=== PATIENT | male | born 1955 | race Caucasian/White ===

== ENCOUNTER 2018-06-06 14:17 | Inpatient (IN) | payer MEDICARE, OTHER ==
[~2018-06-06] VITALS: Ht 182.9 cm; Wt 108.9 kg
[~2018-06-06 14:17] MED LIST: Amlodipine PO; WARFARIN SODIUM2 MG PO; WARFARIN SODIUM3 MG PO
--- OUTSIDE RECORDS SUMMARY | 2018-06-06 14:20 | XMS REPORT | Clinical Summary ---
Author Author [facility] Organization [facility] Address Unknown Phone Unavailable Care Team Providers Care Review Consultant Name Role Phone System, Provider Not In MD PCP Unavailable Allergies No Known Allergies Current Medications Prescription Sig. Disp. Refills Start End Date Status Date warfarin (COUMADIN) 4 MG 03/15/20 Active tablet 18 zolpidem (AMBIEN) 10 mg TK 1 T PO QHS PRN 2 03/13/20 Active tablet 18 pravastatin (PRAVACHOL) TK 1 T PO QD 2 03/01/20 Active 40 MG tablet 18 BYSTOLIC 5 mg tablet TK 1 T PO QD 5 03/13/20 Active 18 ipratropium-albuterol USE 1 VIAL VIA NEBULIZER 0 03/01/20 Active (DUO-NEB) 0.5-2.5 mg/mL Q 6 H FOR SOB OR WHEEZING 18 nebulizer PROAIR HFA 90 INHALE 1 PUFF PO Q 4 H 0 02/10/20 Active mcg/actuation inhaler PRN WHEEZING/ SOB 18 acetaminophen-codeine TK 1 T PO Q 4-6 H PRN 0 03/21/20 Active (TYLENOL WITH CODEINE #3) SEVERE PAIN 18 300-30 mg per tablet ibuprofen (ADVIL,MOTRIN) TK 1 T PO QID 0 03/21/20 Active 600 MG tablet 18 traMADol (ULTRAM) 50 mg Take 1 tablet (50 mg 12 tablet 0 03/25/20 03/30/20 tablet total) by mouth every 6 18 18 (six) hours as needed for moderate pain for up to 5 days. clindamycin (CLEOCIN) 300 Take 1 capsule (300 mg 30 capsule 0 03/25/20 04/04/20 MG capsule total) by mouth 3 (three) 18 18 times a day for 10 days. Active Problems Not on file Encounters Date Type Specialty Care Team Description 03/25/2018 Emergency Emergency Medicine Yolanda Sauer, Closed fracture of MD proximal end of left Kyle Patel MD tibia, unspecified fracture morphology, initial encounter (Primary Dx); Hematoma after 06/05/2017 Social History Tobacco Use Types Packs/Day Years Used Date Current Every Day Smoker Smokeless Tobacco: Current User Alcohol Use Drinks/Week oz/Week Comments Yes Sex Assigned at Date Recorded Not on file Last Filed Vital Signs Vital Sign Reading Time Taken Blood Pressure 128/62 03/25/2018 5:10 PM CDT Pulse 77 03/25/2018 5:10 PM CDT Temperature 37.2 C (99 F) 03/25/2018 12:38 PM CDT Respiratory Rate 18 03/25/2018 5:10 PM CDT Oxygen Saturation 95% 03/25/2018 5:10 PM CDT Inhaled Oxygen - - Concentration Weight 107 kg (235 lb) 03/25/2018 12:38 PM CDT Height 182.9 cm (6') 03/25/2018 12:38 PM CDT Body Mass Index 31.87 03/25/2018 12:38 PM CDT Plan of Treatment Health Maintenance Due Date Last Done Comments COLON CANCER SCREENING 2003 SHINGRIX VACCINE (#1) 2003 ZOSTER VACCINE 2013 PNEUMOCOCCAL 2018 POLYSACCHARIDE VACCINE AGE 65 AND OVER PNEUMOCOCCAL-13 2018 INFLUENZA VACCINE 03/15/2018 Procedures Procedure Name Priority Date/Time Associated Diagnosis Comments XR TIBIA FIBULA 2 VW LEFT STAT 03/25/2018 Results for this 2:45 PM CDT procedure are in the results section. BLOOD CULTURE, AEROBIC & Routine 03/25/2018 Results for this ANAEROBIC 2:27 PM CDT procedure are in the results section. SMEAR REVIEW STAT 03/25/2018 Results for this 2:18 PM CDT procedure are in the results section. ZZESTIMATED GFR STAT 03/25/2018 Results for this 2:18 PM CDT procedure are in the results section. B NATRIURETIC PEPTIDE STAT 03/25/2018 Results for this 2:18 PM CDT procedure are in the results section. TROPONIN STAT 03/25/2018 Results for this 2:18 PM CDT procedure are in the results section. LIPASE LEVEL STAT 03/25/2018 Results for this 2:18 PM CDT procedure are in the results section. LACTIC ACID LEVEL, SEPSIS STAT 03/25/2018 Results for this - NOW AND REPEAT 2X EVERY 2:18 PM CDT procedure are in the 3 HOURS results section. HEPATIC FUNCTION PANEL STAT 03/25/2018 Results for this 2:18 PM CDT procedure are in the results section. BASIC METABOLIC PANEL STAT 03/25/2018 Results for this 2:18 PM CDT procedure are in the results section. HC COMPLETE BLD COUNT STAT 03/25/2018 Results for this W/AUTO DIFF 2:18 PM CDT procedure are in the results section. BLOOD CULTURE, AEROBIC & Routine 03/25/2018 Results for this ANAEROBIC 2:18 PM CDT procedure are in the results section. MS PUNCTURE DRAINAGE OF Routine 03/25/2018 Results for this LESION 1:41 PM CDT procedure are in the results section. MS DRAIN LOWER LEG DEEP Routine 03/25/2018 Results for this ABSC/HEMATOMA 1:41 PM CDT procedure are in the results section. MS DRAINAGE OF Routine 03/25/2018 Results for this HEMATOMA/FLUID 1:41 PM CDT procedure are in the results section. after 06/05/2017 Results * XR Tibia Fibula 2 Vw Left (03/25/2018 2:45 PM) Narrative Performed At EXAMINATION:XR TIBIA FIBULA 2 VW LEFT [facility] CLINICAL HISTORY:leg pain COMPARISON:None. IMPRESSION: 1.Evaluation of the lower extremity demonstrates a minimally displaced and obliquely oriented fracture involving the anterior and lateral proximal tibia and corresponding to superficial soft tissue swelling likely related to a hematoma. There is hardware associated with a total knee arthroplasty. The fracture line extends from the anterior and inferior aspect of the tibial component and approximately 9 to 10 cm distally to the cortex. [facility]-[id number] Procedure Note Interface, Radiology Results Incoming - 03/25/2018 2:57 PM CDT EXAMINATION: XR TIBIA FIBULA 2 VW LEFT CLINICAL HISTORY: leg pain COMPARISON: None. IMPRESSION: 1. Evaluation of the lower extremity demonstrates a minimally displaced and obliquely oriented fracture involving the anterior and lateral proximal tibia and corresponding to superficial soft tissue swelling likely related to a hematoma. There is hardware associated with a total knee arthroplasty. The fracture line extends from the anterior and inferior aspect of the tibial component and approximately 9 to 10 cm distally to the cortex. [facility]-[id number] Performing Organization Address City/State/Zipcode Phone Number [facility] [address] [place] [address] * Blood culture, aerobic & anaerobic (03/25/2018 2:27 PM) Only the most recent of 2 results within the time period is included. Blood culture isolate No growth after 5 days of [facility] DEPARTMENT OF incubation. PATHOLOGY AND Comment: GENOMIC MEDICINE Specimen Information Specimen Source: Blood Specimen Site: l. hand Specimen Blood Performing Organization Address City/State/Zipcode Phone Number [facility] DEPARTMENT OF [address] [place] [address] PATHOLOGY AND GENOMIC MEDICINE * Smear review (03/25/2018 2:18 PM) Platelet slide review Simone adequate [facility] DEPARTMENT OF PATHOLOGY AND GENOMIC MEDICINE Anisocytosis 1+ [facility] DEPARTMENT OF PATHOLOGY AND GENOMIC MEDICINE Ovalocytes 1+ [facility] DEPARTMENT OF PATHOLOGY AND GENOMIC MEDICINE Enlarged platelets 1+ [facility] DEPARTMENT OF PATHOLOGY AND GENOMIC MEDICINE Performing Organization Address City/[facility]/Zipcode Phone Number [facility] DEPARTMENT OF [address] [facility] [place] [address] PATHOLOGY AND GENOMIC MEDICINE * Lactic acid level, SEPSIS - Now and repeat 2x every 3 hours (03/25/2018 2:18 PM) Lactic acid 1.5 0.5 - 2.2 mmol/L [facility] DEPARTMENT OF PATHOLOGY AND GENOMIC MEDICINE Specimen Blood Performing Organization Address City/[facility] Phone Number [facility] DEPARTMENT OF [address] [facility] [place] [address] PATHOLOGY AND GENOMIC MEDICINE * Estimated GFR (03/25/2018 2:18 PM) GFR Non Af Amer 75 mL/min/1.73 m2 [facility] DEPARTMENT OF PATHOLOGY AND GENOMIC MEDICINE GFR Af Amer >90 mL/min/1.73 m2 [facility] DEPARTMENT OF Comment: PATHOLOGY AND Chronic kidney disease: <60 GENOMIC MEDICINE mL/min/1.73m2 Kidney failure: <15 mL/min/1.73m2 The estimated GFR is calculated from the IDMS-traceable Modification of Diet in Renal Disease Equation. The accuracy of the calculation is poor when the creatinine is normal. Calculated values >90 mL/min/1.73m2 are not reported. This equation has not been validated in children (<18 years), women, the elderly (>70 years), or ethnic groups other than Caucasians and Americans. Specimen Plasma specimen Performing Organization Address City/[facility]/Zipcode Phone Number [facility] DEPARTMENT OF [address] [facility] [place] [address] PATHOLOGY AND GENOMIC MEDICINE * Troponin (03/25/2018 2:18 PM) Troponin <0.30 0.00 - 0.30 ng/mL [facility] DEPARTMENT OF Comment: PATHOLOGY AND 0.11 - 1.49 GENOMIC MEDICINE ng/mlMay indicate increased risk of acute coronary syndrome. >=1.5 ng/ml Consistent with acute myocardial infarction. The diagnostic value of a single normal or non-diagnostic result is questionable.Serial samples at 2-6 hour intervals are required to rule out acute myocardial injury. Specimen Plasma specimen Performing Organization Address City/State/Zipcode Phone Number [facility] [address] [place] [address] PATHOLOGY AND GENOMIC MEDICINE * CBC with platelet and differential (03/25/2018 2:18 PM) WBC 6.2 4.2 - 11.0 k/uL [facility] DEPARTMENT OF PATHOLOGY AND GENOMIC MEDICINE RBC 4.98 4.04 - 5.86 m/uL [facility] DEPARTMENT OF PATHOLOGY AND GENOMIC MEDICINE HGB 15.5 13.0 - 17.3 g/dL [facility] DEPARTMENT OF PATHOLOGY AND GENOMIC MEDICINE HCT 47.4 (H) 34.0 - 45.0 % [facility] DEPARTMENT OF PATHOLOGY AND GENOMIC MEDICINE MCV 95.2 80.0 - 98.0 fL [facility] DEPARTMENT OF PATHOLOGY AND GENOMIC MEDICINE MCH 31.1 27.0 - 34.0 pg [facility] DEPARTMENT OF PATHOLOGY AND GENOMIC MEDICINE MCHC 32.7 31.5 - 36.5 g/dL [facility] DEPARTMENT OF PATHOLOGY AND GENOMIC MEDICINE RDW - SD 52.6 (H) 37.0 - 51.0 fL [facility] DEPARTMENT OF PATHOLOGY AND GENOMIC MEDICINE MPV 10.3 7.4 - 10.4 fL [facility] DEPARTMENT OF PATHOLOGY AND GENOMIC MEDICINE Platelet count 182 150 - 400 k/uL [facility] DEPARTMENT OF PATHOLOGY AND GENOMIC MEDICINE Nucleated RBC 0.00 /100 WBC [facility] DEPARTMENT OF PATHOLOGY AND GENOMIC MEDICINE Neutrophils 71.3 (H) 36.0 - 66.0 % [facility] DEPARTMENT OF PATHOLOGY AND GENOMIC MEDICINE Lymphocytes 14.6 (L) 24.0 - 44.0 % [facility] DEPARTMENT OF PATHOLOGY AND GENOMIC MEDICINE Monocytes 8.1 (H) 0.0 - 6.0 % [facility] DEPARTMENT OF PATHOLOGY AND GENOMIC MEDICINE Eosinophils 3.9 0.0 - 6.0 % [facility] DEPARTMENT OF PATHOLOGY AND GENOMIC MEDICINE Basophils 1.3 (H) 0.0 - 1.2 % [facility] DEPARTMENT OF PATHOLOGY AND GENOMIC MEDICINE Immature granulocytes 0.8 0.0 - 1.0 % [facility] DEPARTMENT OF PATHOLOGY AND GENOMIC MEDICINE Specimen Blood Performing Organization Address City/[facility] [place] [address] PATHOLOGY AND GENOMIC MEDICINE * B natriuretic peptide (03/25/2018 2:18 PM) BNP 77 0 - 100 pg/mL [facility] DEPARTMENT OF PATHOLOGY AND GENOMIC MEDICINE Specimen Blood Performing Organization Address City/[facility] [place] [address] PATHOLOGY AND GENOMIC MEDICINE * Lipase level (03/25/2018 2:18 PM) Lipase 49 13 - 60 U/L [facility] DEPARTMENT OF PATHOLOGY AND GENOMIC MEDICINE Specimen Plasma specimen Performing Organization Address [facility] [place] [address] PATHOLOGY AND GENOMIC MEDICINE * Hepatic function panel (03/25/2018 2:18 PM) Albumin 3.3 (L) 3.5 - 5.0 g/dL [facility] DEPARTMENT OF PATHOLOGY AND GENOMIC MEDICINE Total bilirubin 1.0 0.2 - 1.2 mg/dL [facility] DEPARTMENT OF PATHOLOGY AND GENOMIC MEDICINE Bilirubin direct 0.2 0.0 - 0.4 mg/dL [facility] DEPARTMENT OF PATHOLOGY AND GENOMIC MEDICINE Alkaline phosphatase 91 0 - 129 U/L [facility] DEPARTMENT OF PATHOLOGY AND GENOMIC MEDICINE Protein 6.3 6.3 - 8.3 g/dL [facility] DEPARTMENT OF PATHOLOGY AND GENOMIC MEDICINE ALT 16 5 - 50 U/L [facility] DEPARTMENT OF PATHOLOGY AND GENOMIC MEDICINE AST 25 10 - 50 U/L [facility] DEPARTMENT OF PATHOLOGY AND GENOMIC MEDICINE Specimen Plasma specimen Performing Organization Address [facility] [place]erc[place] [address] PATHOLOGY AND GENOMIC MEDICINE * Basic metabolic panel (03/25/2018 2:18 PM) Sodium 141 135 - 150 mEq/L [facility] DEPARTMENT OF PATHOLOGY AND GENOMIC MEDICINE Potassium 4.3 3.5 - 5.0 mEq/L [facility] DEPARTMENT OF PATHOLOGY AND GENOMIC MEDICINE Chloride 104 98 - 112 mEq/L [facility] DEPARTMENT OF PATHOLOGY AND GENOMIC MEDICINE CO2 27 24 - 31 mmol/L [facility] DEPARTMENT OF PATHOLOGY AND GENOMIC MEDICINE Anion gap 10@ANIO 7 - 15 mEq/L [facility] DEPARTMENT OF PATHOLOGY AND GENOMIC MEDICINE BUN 10 7 - 18 mg/dL [facility] DEPARTMENT OF PATHOLOGY AND GENOMIC MEDICINE Creatinine 1.00 0.70 - 1.20 mg/dL [facility] DEPARTMENT OF PATHOLOGY AND GENOMIC MEDICINE Glucose 112 (H) 65 - 100 mg/dL [facility] DEPARTMENT OF PATHOLOGY AND GENOMIC MEDICINE Calcium 8.6 (L) 8.8 - 10.2 mg/dL [facility] DEPARTMENT OF PATHOLOGY AND GENOMIC MEDICINE Specimen Plasma specimen Performing Organization Address City/State/Zipcode Phone Number [place] [address] [place] [address] PATHOLOGY AND GENOMIC MEDICINE * INCISION AND DRAINAGE (03/25/2018 1:41 PM) Narrative Performed At Yolanda Sauer MD 03/26/20189:54 PM I&D/Aspiration/Amputation Performed by: YOLANDA SAUER Authorized by: YOLANDA SAUER Consent: Consent obtained:Verbal Consent given by:Patient Risks discussed:Bleeding, incomplete drainage, pain and damage to other organs Alternatives discussed:No treatment and delayed treatment Location: Type:Hematoma Location:Lower extremity Lower extremity location:L leg Pre-procedure details: Skin preparation:Betadine Anesthesia (see MAR for exact dosages): Anesthesia method:Local infiltration Local anesthetic:Lidocaine 1% w/o epi Procedure details: Complexity:Simple Needle aspiration: Yes Specimen Obtained: No Needle size:18 G Incision types:Single straight Scalpel blade:10 Drainage:Bloody Drainage amount:Scant Wound treatment:Wound left open Packing materials:1/2 in gauze Post-procedure details: Patient tolerance of procedure:Tolerated well, no immediate complications after 06/05/2017 Insurance Payer Benefit Subscriber ID Type Phone Address Plan / Group AETNA AETNA PPO xxxxxxxxxx PPO OPEN CHOICE MEDICARE MEDICARE xxxxxxxxxxx Medicare [place], [place] [address]
[2018-06-06] MEDS ORDERED: SODIUM CHLORIDE 0.9% 1000ML 1,000 ML IV STA (14:51)
[2018-06-06 15:23] LABS: BASOPHILS # (AUTO) 0.1 (0.0-0.1); EOSINOPHILS # (AUTO) 0.3 (0.0-0.4); EOSINOPHILS % 5.6 % (0.0-6.0); HEMATOCRIT 49.9 % (38.2-49.6); HEMOGLOBIN 16.5 g/dL (14.0-18.0); LYMPHOCYTES % 19.7 % (18.0-39.1); MEAN CORPUSCULAR HEMOGLOBIN 30.6 pg (28-32); MEAN CORPUSCULAR HGB CONC 33.1 g/dL (31-35); MEAN CORPUSCULAR VOLUME 92.6 fL (81-99); MONOCYTES # (AUTO) 0.4 (0.2-0.8); MONOCYTES % 8.4 % (4.4-11.3); NEUTROPHILS # (AUTO) 3.2 (2.1-6.9); NEUTROPHILS % 65.1 % (38.7-80.0); PLATELET COUNT 177 x10e3/uL (140-360); RED BLOOD COUNT 5.39 x10e6/uL (4.3-5.7); RED CELL DISTRIBUTION WIDTH 14.6 % (11.7-14.4)
[2018-06-06 15:29] LABS: INR 0.99
[2018-06-06 15:30] LABS: PARTIAL THROMBOPLASTIN TIME 27.5 seconds (23.8-35.5)
[2018-06-06 15:35] LABS: BILIRUBIN,URINE NEGATIVE (NEGATIVE); CLARITY,URINE SL CLOUDY (CLEAR); COLOR,URINE YELLOW (YELLOW); KETONES,URINE NEGATIVE (NEGATIVE); LEUKOCYTE ESTERASE ,URINE NEGATIVE (NEGATIVE); NITRITE,URINE NEGATIVE (NEGATIVE); PROTEIN,URINE DIPSTICK TRACE (NEGATIVE); URINE UROBILINOGEN 0.2 mg/dL (0.2 - 1)
[2018-06-06 15:42] LABS: ALANINE AMINOTRANSFERASE 17 IU/L (0-55); ALBUMIN 3.4 g/dL (3.5-5.0); ALBUMIN/GLOBULIN RATIO 1.2 (0.8-2.0); ALKALINE PHOSPHATASE 109 IU/L (40-150); ANION GAP 13.4 mmol/L (8-16); BLOOD UREA NITROGEN 9 mg/dL (7-26); BUN/CREATININE RATIO 7 (6-25); CALCIUM 8.4 mg/dL (8.4-10.2); CARBON DIOXIDE 27 mmol/L (22-29); CHLORIDE 100 mmol/L (98-107); CREATINE KINASE 43 IU/L (30-200); CREATININE, SERUM 1.25 mg/dL (0.72-1.25); EST GLOMERULAR FILTRATION RATE 58 ML/MIN (60-); GLUCOSE 139 mg/dL (74-118); LIPASE 14 U/L (8-78); POTASSIUM 3.4 mmol/L (3.5-5.1); SODIUM 137 mmol/L (136-145)
[2018-06-06 15:49] LABS: BACTERIA,URINE FEW /HPF; RBC,URINE >50 /HPF (0-5)
--- NOTE | 2018-06-06 16:00 | Diagnostic Imaging Report ---
EXAMINATION: CT of the abdomen and pelvis without contrast. TECHNIQUE: Helical CT images of the abdomen and pelvis were performed from the lung bases to the lesser trochanters. No intravenous contrast was given per renal stone protocol. Coronal and sagittal reformatted images were obtained.Dose modulation, iterative reconstruction, and/or weight based adjustment of the mA/kV was utilized to reduce the radiation dose to as low as reasonably achievable. COMPARISON: None. CLINICAL HISTORY:Abdominal pain, hematuria DISCUSSION: ABSENCE OF INTRAVENOUS CONTRAST DECREASES SENSITIVITY FOR DETECTION OF FOCAL LESIONS AND VASCULAR PATHOLOGY. ABDOMEN/PELVIS: LOWER THORAX: Unremarkable. HEPATOBILIARY:No focal hepatic lesions. No biliary ductal dilation. The gallbladder is normal. SPLEEN: No splenomegaly. PANCREAS: No focal masses or ductal dilatation. ADRENALS: No adrenal nodules. KIDNEYS/URETERS: No hydronephrosis, stones, or solid mass lesions. PELVIC ORGANS/BLADDER: The bladder is normal. PERITONEUM/RETROPERITONEUM: No free air or fluid. LYMPH NODES: No intra-abdominal,retroperitoneal, pelvic or inguinal lymphadenopathy. VESSELS: Limited evaluation GI TRACT: No distention or wall thickening. BONES AND SOFT TISSUES: No bony destructive lesions. No soft tissue abnormalities. IMPRESSION: No renal calculi. No CT finding to explain patient's hematuria. Signed by: Dr. Kali Cole M.D. on 06/06/2018 3:56 PM
[2018-06-06] MEDS: ONDANSETRON HCL INJ 2 MG/ML VIAL IV STA ×2 (16:03→16:19)
[2018-06-06] MEDS ORDERED: MORPHINE SULFATE INJ 4 MG/ML INJ IV STA (16:05)
--- NOTE | 2018-06-06 16:24 | Diagnostic Imaging Report ---
EXAMINATION: CHEST SINGLE (PORTABLE) COMPARISON: CT Abdomen/Pelvis 06/06/18. FINDINGS: TUBES and LINES: None. LUNGS: Lungs are well inflated. No evidence of consolidation or pulmonary edema. An opacity at the right lung base likely represents prominent pericardial fat as seen on abdominal CT from 06/06/18. PLEURA: No pleural effusion or pneumothorax. HEART AND MEDIASTINUM: Mild enlargement of the cardiomediastinal silhouette. BONES AND SOFT TISSUES: No acute osseous lesion. Soft tissues are unremarkable. Status post median sternotomy. Surgical clips project over the left neck. UPPER ABDOMEN: No free air under the diaphragm. IMPRESSION: No acute radiographic abnormality. Signed by: Dr. Aury Javier MD on 06/06/2018 4:21 PM
[2018-06-06] MEDS ORDERED: WARFARIN SODIUM3 MG PO (16:27)
[2018-06-06] MEDS ORDERED: PRAVASTATIN SOD40 MG PO (16:27)
[2018-06-06] MEDS ORDERED: BYSTOLIC5 MG PO (16:27)
[2018-06-06] MEDS ORDERED: PROMETHAZINE HCL (IM) 25 MG/ML VIAL IV PRN (17:45)
[2018-06-06] MEDS ORDERED: SODIUM CHLORIDE FLUSH 10 ML SYR INJ PRN (17:45)
[2018-06-06] MEDS ORDERED: ONDANSETRON HCL INJ 2 MG/ML VIAL IV PRN (17:45)
--- OUTSIDE RECORDS SUMMARY | 2018-06-06 17:59 | XMS REPORT | Clinical Summary ---
Author Author [facility] Organization [facility] Address Unknown Phone Unavailable Care Team Providers Care Primary Health Organisation Manager Name Role Phone System, Provider Not In [...] Team Description 03/25/2018 Emergency Emergency Medicine Yolanda aSuer, Closed fracture of MD proximal end of [...] CDT procedure are in the results section. [place] PUNCTURE DRAINAGE OF Routine 03/25/2018 Results for this LESION 1:41 PM CDT procedure are in the results section. [place] DRAIN LOWER LEG DEEP Routine 03/25/2018 Results for this ABSC/HEMATOMA 1:41 PM CDT procedure are in the results section. [place] DRAINAGE OF Routine 03/25/2018 Results for this [...] to 10 cm distally to the cortex. [facility]-[id number] Procedure Note Interface, Radiology Results Incoming - [...] to 10 cm distally to the cortex. [facility]-[id number] Performing Organization Address City/State/Zipcode Phone Number [facility] [address] [place] [address] * Blood culture, aerobic & anaerobic (03/25/2018 2:27 PM) Only the most recent of 2 results within the time period is included. Blood culture isolate No growth after 5 days of [facility] DEPARTMENT OF incubation. PATHOLOGY AND Comment: GENOMIC MEDICINE Specimen Information Specimen Source: Blood Specimen Site: l. hand Specimen Blood Performing Organization Address City/State/Zipcode Phone Number [facility] DEPARTMENT OF [address] [place] [address] PATHOLOGY AND GENOMIC MEDICINE * Smear review (03/25/2018 2:18 PM) Platelet slide review Simone adequate [facility] DEPARTMENT OF PATHOLOGY AND GENOMIC MEDICINE Anisocytosis 1+ [facility] DEPARTMENT OF PATHOLOGY AND GENOMIC MEDICINE Ovalocytes 1+ [facility] DEPARTMENT OF PATHOLOGY AND GENOMIC MEDICINE Enlarged platelets 1+ [facility] DEPARTMENT OF PATHOLOGY AND GENOMIC MEDICINE Performing Organization Address City/[facility]/Zipcode Phone Number [facility] DEPARTMENT OF [address] [place] [place] [address] PATHOLOGY AND GENOMIC MEDICINE * Lactic acid level, SEPSIS - Now and repeat 2x every 3 hours (03/25/2018 2:18 PM) Lactic acid 1.5 0.5 - 2.2 mmol/L [facility] DEPARTMENT OF PATHOLOGY AND GENOMIC MEDICINE Specimen Blood Performing Organization Address City/[facility] Phone Number [facility] DEPARTMENT OF [address] [facility] [address] PATHOLOGY AND GENOMIC MEDICINE * Estimated GFR (03/25/2018 2:18 PM) GFR Non Af Amer 75 mL/min/1.[address] [facility] DEPARTMENT OF PATHOLOGY AND GENOMIC MEDICINE GFR Af Amer >90 mL/min/1.[address] [facility] DEPARTMENT OF Comment: PATHOLOGY AND Chronic kidney [...] Americans. Specimen Plasma specimen Performing Organization Address City/[facility]/Zipcode Phone Number [facility] DEPARTMENT OF [address] [facility] [address] PATHOLOGY AND GENOMIC MEDICINE * Troponin (03/25/2018 2:18 PM) Troponin <0.30 0.00 - 0.30 ng/mL [facility] DEPARTMENT OF Comment: PATHOLOGY AND 0.11 - 1.49 GENOMIC MEDICINE ng/mlMay indicate increased risk of acute coronary syndrome. >=1.5 ng/ml Consistent with acute myocardial infarction. The diagnostic value of a single normal or non-diagnostic result is questionable.Serial samples at 2-6 hour intervals are required to rule out acute myocardial injury. Specimen Plasma specimen Performing Organization Address City/State/Zipcode Phone Number [facility] [address] [place] [address] PATHOLOGY AND GENOMIC MEDICINE * CBC with platelet and differential (03/25/2018 2:18 PM) WBC 6.2 4.2 - 11.0 k/uL [facility] DEPARTMENT OF PATHOLOGY AND GENOMIC MEDICINE RBC 4.98 4.04 - 5.86 m/uL [facility] DEPARTMENT OF PATHOLOGY AND GENOMIC MEDICINE HGB 15.5 13.0 - 17.3 g/dL [facility] DEPARTMENT OF PATHOLOGY AND GENOMIC MEDICINE HCT 47.4 (H) 34.0 - 45.0 % [facility] DEPARTMENT OF PATHOLOGY AND GENOMIC MEDICINE MCV 95.2 80.0 - 98.[address] [facility] DEPARTMENT OF PATHOLOGY AND GENOMIC MEDICINE MCH 31.1 27.0 - 34.[address] [facility] DEPARTMENT OF PATHOLOGY AND GENOMIC MEDICINE MCHC 32.7 31.5 - 36.5 g/dL [facility] DEPARTMENT OF PATHOLOGY AND GENOMIC MEDICINE RDW - SD 52.6 (H) 37.0 - 51.[address] [facility] DEPARTMENT OF PATHOLOGY AND GENOMIC MEDICINE MPV 10.3 7.4 - 10.[address] [facility] DEPARTMENT OF PATHOLOGY AND GENOMIC MEDICINE Platelet count 182 150 - 400 k/uL [facility] DEPARTMENT OF PATHOLOGY AND GENOMIC MEDICINE Nucleated RBC 0.00 /[address] [facility] DEPARTMENT OF PATHOLOGY AND GENOMIC MEDICINE Neutrophils 71.3 (H) 36.0 - 66.0 % [facility] DEPARTMENT OF PATHOLOGY AND GENOMIC MEDICINE Lymphocytes 14.6 (L) 24.0 - 44.0 % [facility] DEPARTMENT OF PATHOLOGY AND GENOMIC MEDICINE Monocytes 8.1 (H) 0.0 - 6.0 % [facility] DEPARTMENT OF PATHOLOGY AND GENOMIC MEDICINE Eosinophils 3.9 0.0 - 6.0 % [facility] DEPARTMENT OF PATHOLOGY AND GENOMIC MEDICINE Basophils 1.3 (H) 0.0 - 1.2 % [facility] DEPARTMENT OF PATHOLOGY AND GENOMIC MEDICINE Immature granulocytes 0.8 0.0 - 1.0 % [facility] DEPARTMENT OF PATHOLOGY AND GENOMIC MEDICINE Specimen Blood Performing Organization Address City/[facility] [place] [address] PATHOLOGY AND GENOMIC MEDICINE * B natriuretic peptide (03/25/2018 2:18 PM) BNP 77 0 - 100 pg/mL [facility] DEPARTMENT OF PATHOLOGY AND GENOMIC MEDICINE Specimen Blood Performing Organization Address City/[facility] [place] [address] PATHOLOGY AND GENOMIC MEDICINE * Lipase level (03/25/2018 2:18 PM) Lipase 49 13 - 60 U/L [facility] DEPARTMENT OF PATHOLOGY AND GENOMIC MEDICINE Specimen Plasma specimen Performing Organization Address [facility] [place] [address] PATHOLOGY AND GENOMIC MEDICINE * Hepatic function panel (03/25/2018 2:18 PM) Albumin 3.3 (L) 3.5 - 5.0 g/dL [facility] DEPARTMENT OF PATHOLOGY AND GENOMIC MEDICINE Total bilirubin 1.0 0.2 - 1.2 mg/dL [facility] DEPARTMENT OF PATHOLOGY AND GENOMIC MEDICINE Bilirubin direct 0.2 0.0 - 0.4 mg/dL [facility] DEPARTMENT OF PATHOLOGY AND GENOMIC MEDICINE Alkaline phosphatase 91 0 - 129 U/L [facility] DEPARTMENT OF PATHOLOGY AND GENOMIC MEDICINE Protein 6.3 6.3 - 8.3 g/dL [facility] DEPARTMENT OF PATHOLOGY AND GENOMIC MEDICINE ALT 16 5 - 50 U/L [facility] DEPARTMENT OF PATHOLOGY AND GENOMIC MEDICINE AST 25 10 - 50 U/L [facility] DEPARTMENT OF PATHOLOGY AND GENOMIC MEDICINE Specimen Plasma specimen Performing Organization Address [facility] [place] [address] PATHOLOGY AND GENOMIC MEDICINE * Basic metabolic panel (03/25/2018 2:18 PM) Sodium 141 135 - 150 mEq/L [facility] DEPARTMENT OF PATHOLOGY AND GENOMIC MEDICINE Potassium 4.3 3.5 - 5.0 mEq/L [facility] DEPARTMENT OF PATHOLOGY AND GENOMIC MEDICINE Chloride 104 98 - 112 mEq/L [facility] DEPARTMENT OF PATHOLOGY AND GENOMIC MEDICINE CO2 27 24 - 31 mmol/L [facility] DEPARTMENT OF PATHOLOGY AND GENOMIC MEDICINE Anion gap 10@ANIO 7 - 15 mEq/L [facility] DEPARTMENT OF PATHOLOGY AND GENOMIC MEDICINE BUN 10 7 - 18 mg/dL [facility] DEPARTMENT OF PATHOLOGY AND GENOMIC MEDICINE Creatinine 1.00 0.70 - 1.20 mg/dL [facility] DEPARTMENT OF PATHOLOGY AND GENOMIC MEDICINE Glucose 112 (H) 65 - 100 mg/dL [facility] DEPARTMENT OF PATHOLOGY AND GENOMIC MEDICINE Calcium 8.6 (L) 8.8 - 10.2 mg/dL [facility] DEPARTMENT OF PATHOLOGY AND GENOMIC MEDICINE Specimen Plasma specimen Performing Organization Address City/State/Zipcode Phone Number [place] [address] [address] [place] [address] PATHOLOGY AND GENOMIC MEDICINE * INCISION AND [...] Medicare [place], [place] [address]
--- OUTSIDE RECORDS SUMMARY | 2018-06-06 17:59 | XMS REPORT ---
Author [facility] Address Unknown Phone Unavailable Care Team Providers Care Monotype Setter Name Role Phone Lynette RAMIRES Unavailable Unavailable Problems This patient has no known problems. Allergies, Adverse Reactions, Alerts This patient has no known allergies or adverse reactions. Medications This patient has no known medications. Results Test Description Test Time Test Comments Text Results Atomic Results Result Comments CHEST SINGLE (PORTABLE) 2018-06-06 16:01:00 [place] [address] Patient Name: NANCY EASTON MR #: [id number] : 1955 Age/Sex: 63/M Req #: [id number] Adm Physician: Ordered by: TEMITOPE ATKINSON GLASS INSTALLER TECHNICIAN Report #: [id number] Location: ER Room/Bed: Procedure: [id number] DX/CHEST SINGLE (PORTABLE) Exam Date: Exam Time: REPORT STATUS: Signed EXAMINATION: CHEST SINGLE (PORTABLE) COMPARISON: CT Abdomen/Pelvis 06/06/18. FINDINGS: TUBES and LINES: None. LUNGS: Lungs are well inflated. No evidence of consolidation or pulmonary edema. An opacity at the right lung base likely represents prominent pericardial fat as seen on abdominal CT from 06/06/18. PLEURA: No pleural effusion or pneumothorax. HEART AND MEDIASTINUM: Mild enlargement of the cardiomediastinal silhouette. BONES AND SOFT TISSUES: No acute osseous lesion. Soft tissues are unremarkable. Status post median sternotomy. Surgical clips project over the left neck. UPPER ABDOMEN: No free air under the diaphragm. IMPRESSION: No acute radiographic abnormality. Signed by: Dr. Bashir Escobedo MD on 06/06/2018 4:21 PM Dictated By: BASHIR ESCOBEDO MD 20 Transcribed By: REBECCA on 06/06/181620 COPY TO: TEMITOPE ATKINSON GLASS INSTALLER TECHNICIAN CT ABDOMEN/PELVIS WO 2018-06-06 15:49:00 [place] [address] Patient Name: NANCY EASTON MR #: [id number] : 1955 Age/Sex: 63/M Req #: [id number] Adm Physician: Ordered by: TEMITOPE ATKINSON GLASS INSTALLER TECHNICIAN Report #: [id number] Location: ER Room/Bed: Procedure: [id number] CT/CT ABDOMEN/PELVIS WO Exam Date: Exam Time: REPORT STATUS: Signed EXAMINATION: CT of the abdomen and pelvis without contrast. TECHNIQUE: Helical CT images of the abdomen and pelvis were performed from the lung bases to the lesser trochanters. No intravenous contrast was given per renal stone protocol. Coronal and sagittal reformatted images were obtained.Dose modulation, iterative reconstruction, and/or weight based adjustment of the mA/kV was utilized to reduce the radiation dose to as low as reasonably achievable. COMPARISON: None. CLINICAL HISTORY:Abdominal pain, hematuria DISCUSSION: ABSENCE OF INTRAVENOUS CONTRAST DECREASES SENSITIVITY FOR DETECTION OF FOCAL LESIONS AND VASCULAR PATHOLOGY. ABDOMEN/PELVIS: LOWER THORAX: Unremarkable. HEPATOBILIARY:No focal hepatic lesions. No biliary ductal dilation. The gallbladder is normal. SPLEEN: No splenomegaly. PANCREAS: No focal masses or ductal dilatation. ADRENALS: No adrenal nodules. KIDNEYS/URETERS: No hydronephrosis, stones, or solid mass lesions. PELVIC ORGANS/BLADDER: The bladder is normal. PERITONEUM/RETROPERITONEUM: No free air or fluid. LYMPH NODES: No intra- abdominal,retroperitoneal, pelvic or inguinal lymphadenopathy. VESSELS: Limited evaluation GI TRACT: No distention or wall thickening. BONES AND SOFT TISSUES: No bony destructive lesions. No soft tissue abnormalities. IMPRESSION: No renal calculi. No CT finding to explain patient's hematuria. Signed by: Dr. Luz Marina Holguin M.D. on 06/06/2018 3:56 PM Dictated By: LUZ MARINA HOLGUIN MD [id number] Transcribed By: REBECCA on 06/06/18 [id number] COPY TO: TEMITOPE ATKINSON NP
[2018-06-06] MEDS ORDERED: PROMETHAZINE 12.5MG/ NACL 0.9% 50 ML IV PRN (18:00)
[2018-06-06] MEDS ORDERED: CEFTRIAXONE SOD 1 GM VIAL IV ONE (18:00)
[2018-06-06] MEDS ORDERED: HYDROMORPHONE 2MG/ML 2 MG/ML ML IV ONE (18:15)
[2018-06-06] MEDS: FAMOTIDINE 20 MG TAB PO SCH (18:20)
[2018-06-06] MEDS: MORPHINE SULFATE 2 MG/ML SYR IV PRN ×2 (18:22→21:47)
[2018-06-06] MEDS: LACTATED RINGER'S 1,000 ML IV SCH (18:45)
[2018-06-06 20:16] VITALS: BP 122/56
[2018-06-06 20:30] VITALS: BP 122/56
[2018-06-06] MEDS ORDERED: POTASSIUM CHLORIDE 20 MEQ TAB CR PO STA (22:52)
[2018-06-06] MEDS ORDERED: HYDRALAZINE HCL 20 MG/ML VIAL IV PRN (23:00)
[2018-06-06] MEDS ORDERED: ACETAMINOPHEN 325 MG TAB PO PRN (23:00)
[2018-06-06] MEDS: NICOTINE 14 MG/EA PATCH TOP SCH (23:50)
[2018-06-06] MEDS: NEBIVOLOL 10 MG TAB PO SCH (23:50)
[2018-06-06] MEDS: ZOLPIDEM TARTRATE 10 MG TAB PO PRN (23:53)
[2018-06-06] MEDS: PRAVASTATIN 20 MG TAB PO SCH (23:53)
[2018-06-07] VITALS (7 sets, daily range): BP systolic 121–148; BP diastolic 58–67
[2018-06-07] MEDS: MORPHINE SULFATE 2 MG/ML SYR IV PRN ×5 (03:18→19:39)
[2018-06-07 05:31] LABS: BASOPHILS # (AUTO) 0.1 (0.0-0.1); BASOPHILS % 1.2 % (0.0-1.0); EOSINOPHILS # (AUTO) 0.2 (0.0-0.4); EOSINOPHILS % 4.4 % (0.0-6.0); HEMATOCRIT 45.4 % (38.2-49.6); HEMOGLOBIN 15.1 g/dL (14.0-18.0); LYMPHOCYTES % 20.2 % (18.0-39.1); MEAN CORPUSCULAR HEMOGLOBIN 30.9 pg (28-32); MEAN CORPUSCULAR HGB CONC 33.3 g/dL (31-35); MONOCYTES # (AUTO) 0.3 (0.2-0.8); MONOCYTES % 6.6 % (4.4-11.3); NEUTROPHILS # (AUTO) 3.4 (2.1-6.9); NEUTROPHILS % 67.2 % (38.7-80.0); PLATELET COUNT 168 x10e3/uL (140-360); RED BLOOD COUNT 4.88 x10e6/uL (4.3-5.7); RED CELL DISTRIBUTION WIDTH 14.6 % (11.7-14.4)
[2018-06-07] MEDS: LACTATED RINGER'S 1,000 ML IV SCH (05:58)
[2018-06-07 06:01] LABS: ANION GAP 11.3 mmol/L (8-16); BLOOD UREA NITROGEN 9 mg/dL (7-26); BUN/CREATININE RATIO 8 (6-25); CALCIUM 8.3 mg/dL (8.4-10.2); CARBON DIOXIDE 27 mmol/L (22-29); CHLORIDE 105 mmol/L (98-107); CHOL/HDL RATIO 3.3 (3.9-4.7); CHOLESTEROL 106 MD/DL (0-199); CREATININE, SERUM 1.19 mg/dL (0.72-1.25); EST GLOMERULAR FILTRATION RATE > 60 ML/MIN (60-); GLUCOSE 99 mg/dL (74-118); HDL CHOLESTEROL 32 MG/DL (40-60); LDL CHOLESTEROL 57 MG/DL (60-130); MAGNESIUM 1.7 MG/DL (1.3-2.1); POTASSIUM 4.3 mmol/L (3.5-5.1); SODIUM 139 mmol/L (136-145); TRIGLYCERIDES 86 MG/DL (0-149)
[2018-06-07 07:54] LABS: INR 4.29
[2018-06-07 07:55] LABS: PARTIAL THROMBOPLASTIN TIME 69.7 seconds (23.8-35.5)
[2018-06-07] MEDS: FAMOTIDINE 20 MG TAB PO SCH ×2 (09:22→16:43)
[2018-06-07] MEDS: NICOTINE 14 MG/EA PATCH TOP SCH (09:22)
--- NOTE | 2018-06-07 10:12 | Consultation ---
DATE OF CONSULTATION: June 07, 2018 UROLOGY CONSULTATION REASON FOR CONSULTATION: Gross hematuria. HISTORY OF PRESENT ILLNESS: Zoltan Anderson is a 63-year-old man who has never seen a urologist. The patient in 2003 after his aortic valve replacement was coagulopathic due to over-anticoagulation, and had an episode of gross hematuria. He reported to the emergency room and said everything was normalized. He was never worked up by a urologist. The patient had gross hematuria and presented to the emergency room where his INR was initially 0.99. Despite not getting any additional Coumadin, the patient's INR was 4.29 today indicating there may have been a lab error. The patient also reports some suprapubic pains. He denies any other hematuria. Denies any dysuria. Denies any urinary tract infections. Denies any urolithiasis. He does report some suprapubic pains. The patient reports that his hematuria is initial and clears with the urinary stream. The hematuria seems to be improving during this hospitalization so far. PAST MEDICAL AND SURGICAL HISTORY 1. Status post aortic valve replacement. 2. Status post left carotid endarterectomy. 3. Status post appendectomy. 4. Status post tonsillectomy. 5. Status post left total knee arthroplasty. 6. Hypertension. 7. Hypercholesterolemia. 8. Smoker. ALLERGIES: NONE KNOWN. CURRENT MEDICATIONS: Please refer to the MAR. SOCIAL HISTORY: The patient has decreased his smoking down to half a pack per day. He denies ethanol or drug use. 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 FAMILY HISTORY: Noncontributory to the active urological problems. REVIEW OF SYSTEMS: As consistent above with the history of present illness and past medical history. Otherwise, negative for all other systems. PHYSICAL EXAMINATION GENERAL: A healthy appearing 63-year-old man lying in bed in no apparent distress. VITALS: He is currently afebrile. Vital signs are currently stable. ABDOMEN: Soft, nondistended and nontender without costovertebral angle tenderness. Kidneys are not palpable without hepatosplenomegaly. No obvious evidence of hernia. GENITOURINARY: Testes descended bilaterally. Testes and epididymis are bilaterally palpably normal. The patient has a normal circumcised male phallus with normal meatus without any lesions. Digital rectal examination is deferred at the present time. For the remaining physical examination systems, please refer to the admission history and physical on the chart. LABORATORY STUDIES: The patient's potassium yesterday was low at 3.4. Today, it is normalized at 4.3. His calcium is low today at 8.3. Magnesium is normal at 1.7. White blood cell count is 5010, hemoglobin 15.1 and platelets 168,000. The patient's PT is 44 and his INR is 4.29. His PTT is 69.7. Urinalysis significant for greater than 50 rbcs. It is otherwise unremarkable. Urine culture is pending. CT scan of the abdomen and pelvis was done in the ER without contrast. It revealed no renal calculi and no findings to explain the patient's hematuria. ASSESSMENT 1. Gross hematuria. 2. Hypokalemia, improved. 3. Hypocalcemia. 4. Coagulopathy. PLAN 1. Correct the coagulopathy. I recommend correcting the coagulopathy. 2. I defer the hematologic and electrolyte abnormalities to the admitting physician. 3. Will await the patient's urine culture, as well as normalization of his PT and INR. 4. Will order serial urines. 5. Once the patient's bleeding has stopped and his coagulopathy has been resolved, he will need a cystoscopic examination. At that point in time, we should probably perform cystoscopy and retrograde during this hospitalization so he may be anticoagulated safely following his workup. Thank you very much for involving us in the care of your patient. Will be happy to follow him along with you, as well as an outpatient. Job#: [id number] NILESH cc:HERBERT SEYMOUR DO
[2018-06-07] MEDS ORDERED: PHYTONADIONE 10 MG/ML AMP SQ NR (17:00)
--- NOTE | 2018-06-07 19:57 | History and Physical ---
PRIMARY CARE PROVIDER: Dr. Woodward CHIEF COMPLAINT: Hematuria. HISTORY OF PRESENT ILLNESS: Mr. Anderson is a 63-year-old gentleman who noticed blood-tinged urine, came to the ER and was found to have significant microscopic hematuria and was admitted for further evaluation. REVIEW OF SYSTEMS: He denies fever, chills, or weight loss. He denies sinus congestion or sore throat. He denies chest pain or palpitations. He denies shortness of breath, wheezing, or cough. He denies abdominal pain, nausea, vomiting, or melena. He denies dysuria or flank pain. He denies rash or pruritus. He denies joint pain or swelling. He denies headache, vertigo, or loss of consciousness. He denies depression, agitation, homicidal or suicidal ideation. PAST MEDICAL HISTORY: Significant for hypertension, hypercholesterolemia, aortic valve replacement in 2003 with a mechanical aortic valve replacement. He also had a left carotid endarterectomy around 2005. He had a left total knee replacement around 2006 and he had a large hematoma evacuated from his left leg about 2 weeks ago at [facility]. REGULAR MEDICATIONS: Include Bystolic 5 mg daily, pravastatin 40 mg at bedtime, and Coumadin 6 mg daily. ALLERGIES: HE HAS NO KNOWN DRUG ALLERGIES. FAMILY HISTORY: Unremarkable. 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 He is . British is his primary language. He does not smoke, drink, or use illegal drugs, and he is generally independently functioning. PHYSICAL EXAMINATION: PSYCHIATRIC: He is alert and oriented x3 with normal mood and affect. CONSTITUTIONAL: He has a normal body habitus, is in no acute distress. VITAL SIGNS: As follows: Blood pressure 137/59, pulse 73 and regular, respiratory rate 20, O2 sat 92% on room air, temperature 98.1. HEENT: His head is atraumatic. His eyes are anicteric with clear conjunctivae. Ears and nares are without erythema or discharge. Oropharynx is clear. NECK: Supple with no mass or thyromegaly. LYMPHATIC SYSTEM: He has no palpable cervical, axillary, or inguinal adenopathy. CARDIOVASCULAR SYSTEM: His heart has a regular rate and rhythm. He has an aortic click from the mechanical aortic valve and a very slight systolic murmur at the left sternal border. He has no carotid bruit. He has trace bipedal edema, left side slightly greater than right with weak dorsal pedal pulses. RESPIRATORY: Lungs are clear to auscultation and percussion with normal respiratory effort. GASTROINTESTINAL: His abdomen is soft without organomegaly, masses, or tenderness. He has normal bowel sounds present. CUTANEOUS: His skin is warm and dry to touch with no rash or skin breakdown. MUSCULOSKELETAL: His joints are in normal alignment without erythema or swelling. He has no calf tenderness. NEUROLOGIC: Nonfocal with intact cranial nerves and no motor or sensory deficits. DIAGNOSTIC STUDIES: Chest x-ray shows no acute disease. CT scan of the abdomen, also no acute disease and no evidence of any renal calculi. His UA shows greater than 50 red cells, no white cells and has no growth at 24 hours. His chemistry shows normal electrolytes, CO2 27, creatinine 1.19, BUN 9 for a normal GFR, glucose is 99, calcium 8.3, magnesium 1.7. Transaminases, bilirubin, and alk phos are all normal. CBC shows a white count of 5 with a normal differential, hemoglobin 15.1, hematocrit 45.4, platelet count 168,000. His pro time is 44.0 with an INR of 4.29, PTT 69.7. IMPRESSIONS AND PLAN: 1. Microscopic hematuria. Urine culture still pending. Urology has been consulted and wants to do a cystoscopy, however, the patient will need to be off his Coumadin for this cystoscopy. 2. Coagulopathy due to Coumadin toxicity. Will give the patient 1 dose of vitamin K. Will allow his INR to drop naturally. When his INR is less than 2, will start the patient on heparin drip protocol. Continue to follow the INR. Once the INR is below 1.2, the patient will be ready for surgery. The heparin can be turned off for surgery and then restarted after surgery, and the patient will then be reloaded on Coumadin after the cystoscopy. 3. History of mechanical aortic valve replacement. See the anticoagulation protocol described above. 4. Hypertension. Well controlled. Will continue his home meds of Bystolic as well as p.r.n. hydralazine. 5. Hypercholesterolemia. Will hold his pravastatin at this time and just monitor. 6. For prophylaxis, the patient is on Pepcid for gastrointestinal prophylaxis and he is anticoagulated at the moment. Job#: [id number]
[2018-06-07] MEDS: PRAVASTATIN 20 MG TAB PO SCH (20:39)
[2018-06-07] MEDS: NEBIVOLOL 10 MG TAB PO SCH (20:39)
[2018-06-08] VITALS (8 sets, daily range): BP systolic 112–139; BP diastolic 57–64
[2018-06-08] MEDS: MORPHINE SULFATE 2 MG/ML SYR IV PRN ×4 (00:46→22:07)
[2018-06-08] MEDS: ZOLPIDEM TARTRATE 10 MG TAB PO PRN (00:46)
[2018-06-08 05:12] LABS: BASOPHILS % 0.7 % (0.0-1.0); EOSINOPHILS # (AUTO) 0.1 (0.0-0.4); EOSINOPHILS % 2.8 % (0.0-6.0); HEMATOCRIT 44.5 % (38.2-49.6); HEMOGLOBIN 14.9 g/dL (14.0-18.0); LYMPHOCYTES # (AUTO) 0.9 (1.0-3.2); LYMPHOCYTES % 18.7 % (18.0-39.1); MEAN CORPUSCULAR HEMOGLOBIN 30.9 pg (28-32); MEAN CORPUSCULAR HGB CONC 33.5 g/dL (31-35); MEAN CORPUSCULAR VOLUME 92.3 fL (81-99); MONOCYTES # (AUTO) 0.3 (0.2-0.8); MONOCYTES % 6.5 % (4.4-11.3); NEUTROPHILS # (AUTO) 3.3 (2.1-6.9); NEUTROPHILS % 70.9 % (38.7-80.0); PLATELET COUNT 144 x10e3/uL (140-360); RED BLOOD COUNT 4.82 x10e6/uL (4.3-5.7); RED CELL DISTRIBUTION WIDTH 14.3 % (11.7-14.4)
[2018-06-08 05:31] LABS: ANION GAP 7.7 mmol/L (8-16); BLOOD UREA NITROGEN 9 mg/dL (7-26); BUN/CREATININE RATIO 9 (6-25); CALCIUM 8.5 mg/dL (8.4-10.2); CARBON DIOXIDE 26 mmol/L (22-29); CHLORIDE 102 mmol/L (98-107); CREATININE, SERUM 0.98 mg/dL (0.72-1.25); EST GLOMERULAR FILTRATION RATE > 60 ML/MIN (60-); GLUCOSE 95 mg/dL (74-118); POTASSIUM 3.7 mmol/L (3.5-5.1); SODIUM 132 mmol/L (136-145)
[2018-06-08 07:12] LABS: INR 2.41
[2018-06-08] MEDS: FAMOTIDINE 20 MG TAB PO SCH ×2 (08:19→16:20)
[2018-06-08] MEDS: NICOTINE 14 MG/EA PATCH TOP SCH (09:25)
[2018-06-08] MEDS ORDERED: HYDRALAZINE HCL 20 MG/ML VIAL IV PRN (09:30)
[2018-06-08] MEDS ORDERED: PHYTONADIONE 10 MG/ML AMP SQ ONE (10:15)
[2018-06-08] MEDS ORDERED: GUAIFENESIN 600MG/DEXTROMETHORPHAN 30MG TABSR PO SCH (10:30)
[2018-06-08] MEDS: HEPARIN 25,000 UNIT/D5W 250ML 250 ML IV SCH (13:56)
--- NOTE | 2018-06-08 16:25 | Diagnostic Imaging Report ---
EXAM: US ABDOMEN LIMITED INDICATION: ^ABD ABSCESS? COMPARISON: CT abdomen and pelvis 06/06/2018 TECHNIQUE: Transverse and sagittal images were performed of the anterior and lower abdominal wall. FINDINGS: 1.0 x 0.7 x 1.8 cm nonvascular hypoechoic structure in the lower anterior abdominal wall at midline. IMPRESSION: Echographic findings may correlate with the fat-containing umbilical hernia seen on CT abdomen and pelvis on 06/06/2018. No new fluid collections. Signed by: Dr. Esha Bettencourt M.D. on 06/08/2018 4:21 PM
[2018-06-08 20:25] LABS: INR 1.32; PROTHROMBIN TIME 17.5 seconds (11.9-14.5)
[2018-06-08] MEDS: NEBIVOLOL 10 MG TAB PO SCH (21:29)
[2018-06-08] MEDS: PRAVASTATIN 20 MG TAB PO SCH (21:29)
[2018-06-09] VITALS: BP 137/57
[2018-06-09] MEDS: ZOLPIDEM TARTRATE 10 MG TAB PO PRN ×2 (00:05→21:20)
[2018-06-09 04:00] VITALS: BP 122/56
[2018-06-09 04:48] LABS: BASOPHILS % 0.9 % (0.0-1.0); EOSINOPHILS # (AUTO) 0.2 (0.0-0.4); EOSINOPHILS % 3.9 % (0.0-6.0); HEMATOCRIT 43.2 % (38.2-49.6); HEMOGLOBIN 14.8 g/dL (14.0-18.0); LYMPHOCYTES # (AUTO) 0.9 (1.0-3.2); LYMPHOCYTES % 19.6 % (18.0-39.1); MEAN CORPUSCULAR HGB CONC 34.3 g/dL (31-35); MEAN CORPUSCULAR VOLUME 90.4 fL (81-99); MONOCYTES # (AUTO) 0.3 (0.2-0.8); MONOCYTES % 7.4 % (4.4-11.3); NEUTROPHILS # (AUTO) 3.1 (2.1-6.9); PLATELET COUNT 157 x10e3/uL (140-360); RED BLOOD COUNT 4.78 x10e6/uL (4.3-5.7)
[2018-06-09 05:00] LABS: INR 1.11; PROTHROMBIN TIME 15.3 seconds (11.9-14.5)
[2018-06-09 05:08] LABS: ANION GAP 10.7 mmol/L (8-16); BLOOD UREA NITROGEN 8 mg/dL (7-26); BUN/CREATININE RATIO 8 (6-25); CALCIUM 8.7 mg/dL (8.4-10.2); CARBON DIOXIDE 26 mmol/L (22-29); CHLORIDE 103 mmol/L (98-107); CREATININE, SERUM 0.98 mg/dL (0.72-1.25); EST GLOMERULAR FILTRATION RATE > 60 ML/MIN (60-); GLUCOSE 93 mg/dL (74-118); MAGNESIUM 1.9 MG/DL (1.3-2.1); POTASSIUM 3.7 mmol/L (3.5-5.1); SODIUM 136 mmol/L (136-145)
[2018-06-09 08:00] VITALS: BP 156/82
[2018-06-09] MEDS: FAMOTIDINE 20 MG TAB PO SCH ×2 (08:28→17:30)
[2018-06-09] MEDS: NICOTINE 14 MG/EA PATCH TOP SCH (08:28)
[2018-06-09] MEDS ORDERED: GENTAMICIN 80MG/NS 100 ML 100 ML IV ONE (09:45)
[2018-06-09] MEDS ORDERED: AMPICILLIN SOD 1 GM/NS 50ML 50 ML IV ONE (10:00)
[2018-06-09] MEDS ORDERED: IOPAMIDOL 610MG/1ML 300 MG/ML VIAL IV ONE (10:02)
[2018-06-09] MEDS ORDERED: BELLADONNA/OPIUM 60 MG SUPP PR ONE (10:46)
[2018-06-09] MEDS ORDERED: WARFARIN SOD 5 MG TAB PO ONE (12:15)
[2018-06-09] MEDS: PHENAZOPYRIDINE HCL 100 MG TAB PO SCH ×2 (13:27→17:30)
[2018-06-09] MEDS: MORPHINE SULFATE 2 MG/ML SYR IV PRN ×3 (14:17→21:21)
[2018-06-09] MEDS ORDERED: SEVOFLURANE INHAL SOLN 250 ML PEN BTL ONE (14:43)
[2018-06-09] MEDS ORDERED: ONDANSETRON HCL INJ 2 MG/ML VIAL ONE (14:43)
[2018-06-09] MEDS ORDERED: DEXAMETHASONE SOD PHOS INJ 4 MG/ML VIAL ONE (14:43)
[2018-06-09] MEDS ORDERED: LIDOCAINE HCL 2% LOCAL INJ 5 ML SDV VIAL INJ ONE (14:43)
[2018-06-09] MEDS ORDERED: PROPOFOL IV EMULSION 10 MG/ML 20 ML VIAL ONE (14:43)
[2018-06-09] MEDS: HEPARIN 25,000 UNIT/D5W 250ML 250 ML IV SCH (14:45)
[2018-06-09 16:00] VITALS: BP 146/87
[2018-06-09] MEDS ORDERED: MIDAZOLAM HCL 2 MG/2 ML VIAL ONE (16:08)
[2018-06-09] MEDS ORDERED: FENTANYL CITRATE/PF 100MCG/2 ML INJ ONE (16:08)
[2018-06-09 16:22] VITALS: BP 141/75
[2018-06-09 21:05] VITALS: BP 106/62
[2018-06-09] MEDS: NEBIVOLOL 10 MG TAB PO SCH (21:22)
[2018-06-09] MEDS: PRAVASTATIN 20 MG TAB PO SCH (21:22)
[2018-06-10] VITALS (7 sets, daily range): BP systolic 95–136; BP diastolic 58–77
[2018-06-10] MEDS: MORPHINE SULFATE 2 MG/ML SYR IV PRN ×5 (04:17→22:10)
[2018-06-10 04:21] LABS: BASOPHILS % 0.2 % (0.0-1.0); EOSINOPHILS % 0.5 % (0.0-6.0); HEMOGLOBIN 15.1 g/dL (14.0-18.0); LYMPHOCYTES # (AUTO) 0.6 (1.0-3.2); LYMPHOCYTES % 9.8 % (18.0-39.1); MEAN CORPUSCULAR HGB CONC 34.3 g/dL (31-35); MEAN CORPUSCULAR VOLUME 90.3 fL (81-99); MONOCYTES # (AUTO) 0.6 (0.2-0.8); MONOCYTES % 8.6 % (4.4-11.3); NEUTROPHILS # (AUTO) 5.2 (2.1-6.9); NEUTROPHILS % 80.6 % (38.7-80.0); PLATELET COUNT 183 x10e3/uL (140-360); RED BLOOD COUNT 4.87 x10e6/uL (4.3-5.7); RED CELL DISTRIBUTION WIDTH 14.1 % (11.7-14.4)
[2018-06-10 04:34] LABS: INR 1.05; PROTHROMBIN TIME 14.6 seconds (11.9-14.5)
[2018-06-10 04:40] LABS: ANION GAP 12.4 mmol/L (8-16); BLOOD UREA NITROGEN 14 mg/dL (7-26); BUN/CREATININE RATIO 12 (6-25); CALCIUM 8.7 mg/dL (8.4-10.2); CARBON DIOXIDE 27 mmol/L (22-29); CHLORIDE 102 mmol/L (98-107); CREATININE, SERUM 1.17 mg/dL (0.72-1.25); EST GLOMERULAR FILTRATION RATE > 60 ML/MIN (60-); GLUCOSE 150 mg/dL (74-118); POTASSIUM 4.4 mmol/L (3.5-5.1); SODIUM 137 mmol/L (136-145)
[2018-06-10] MEDS: FAMOTIDINE 20 MG TAB PO SCH ×2 (09:36→17:39)
[2018-06-10] MEDS: PHENAZOPYRIDINE HCL 100 MG TAB PO SCH ×3 (09:36→18:44)
[2018-06-10] MEDS: NICOTINE 14 MG/EA PATCH TOP SCH (09:36)
[2018-06-10] MEDS: HEPARIN 25,000 UNIT/D5W 250ML 250 ML IV SCH (12:20)
[2018-06-10] MEDS: ALBUTEROL/IPRATROPIUM 3 ML NEB NEB PRN (12:30)
[2018-06-10] MEDS: WARFARIN SOD 3 MG TAB PO SCH (17:39)
[2018-06-10] MEDS: NEBIVOLOL 10 MG TAB PO SCH (20:33)
[2018-06-10] MEDS: PRAVASTATIN 20 MG TAB PO SCH (20:33)
[2018-06-11] VITALS: BP 148/65
[2018-06-11] MEDS: ZOLPIDEM TARTRATE 10 MG TAB PO PRN (02:07)
[2018-06-11 04:00] VITALS: BP 164/70
[2018-06-11 04:28] LABS: BASOPHILS % 0.8 % (0.0-1.0); EOSINOPHILS # (AUTO) 0.2 (0.0-0.4); EOSINOPHILS % 4.4 % (0.0-6.0); HEMATOCRIT 42.9 % (38.2-49.6); HEMOGLOBIN 14.2 g/dL (14.0-18.0); LYMPHOCYTES # (AUTO) 1.5 (1.0-3.2); LYMPHOCYTES % 30.3 % (18.0-39.1); MEAN CORPUSCULAR HEMOGLOBIN 30.9 pg (28-32); MEAN CORPUSCULAR HGB CONC 33.1 g/dL (31-35); MEAN CORPUSCULAR VOLUME 93.5 fL (81-99); MONOCYTES # (AUTO) 0.5 (0.2-0.8); MONOCYTES % 9.5 % (4.4-11.3); NEUTROPHILS # (AUTO) 2.8 (2.1-6.9); NEUTROPHILS % 54.6 % (38.7-80.0); PLATELET COUNT 165 x10e3/uL (140-360); RED BLOOD COUNT 4.59 x10e6/uL (4.3-5.7); RED CELL DISTRIBUTION WIDTH 14.6 % (11.7-14.4)
[2018-06-11 04:39] LABS: INR 0.98; PROTHROMBIN TIME 13.9 seconds (11.9-14.5)
[2018-06-11 04:40] LABS: PARTIAL THROMBOPLASTIN TIME 55.2 seconds (23.8-35.5)
[2018-06-11 04:48] LABS: BLOOD UREA NITROGEN 14 mg/dL (7-26); BUN/CREATININE RATIO 13 (6-25); CALCIUM 8.5 mg/dL (8.4-10.2); CARBON DIOXIDE 27 mmol/L (22-29); CHLORIDE 105 mmol/L (98-107); CREATININE, SERUM 1.06 mg/dL (0.72-1.25); EST GLOMERULAR FILTRATION RATE > 60 ML/MIN (60-); GLUCOSE 94 mg/dL (74-118); MAGNESIUM 2.1 MG/DL (1.3-2.1); SODIUM 140 mmol/L (136-145)
[2018-06-11] MEDS: HEPARIN 25,000 UNIT/D5W 250ML 250 ML IV SCH ×2 (05:00→21:43)
[2018-06-11] MEDS: ALBUTEROL/IPRATROPIUM 3 ML NEB NEB PRN (07:40)
[2018-06-11 08:00] VITALS: BP 153/66
[2018-06-11] MEDS: FAMOTIDINE 20 MG TAB PO SCH ×2 (08:00→16:49)
[2018-06-11] MEDS: NICOTINE 14 MG/EA PATCH TOP SCH (08:15)
[2018-06-11] MEDS: PHENAZOPYRIDINE HCL 100 MG TAB PO SCH ×3 (08:15→17:54)
[2018-06-11 11:55] VITALS: BP 145/63
[2018-06-11] MEDS: AMLODIPINE BESYLATE 10 MG TAB PO SCH (11:59)
[2018-06-11] MEDS: ALBUTEROL/IPRATROPIUM 3 ML NEB NEB SCH ×3 (12:34→23:10)
[2018-06-11] MEDS: MORPHINE SULFATE 2 MG/ML SYR IV PRN ×2 (12:35→16:48)
[2018-06-11 16:00] VITALS: BP_SYST 110; BP_SYST 144; BP_DIAS 53; BP_DIAS 79
[2018-06-11] MEDS: WARFARIN SOD 3 MG TAB PO SCH (16:49)
[2018-06-11 20:00] VITALS: BP 92/55
[2018-06-11] MEDS: PRAVASTATIN 20 MG TAB PO SCH (20:24)
[2018-06-11] MEDS: NEBIVOLOL 10 MG TAB PO SCH (20:24)
[2018-06-12] VITALS: BP 109/63
[2018-06-12 04:00] VITALS: BP 135/74
[2018-06-12] MEDS: MORPHINE SULFATE 2 MG/ML SYR IV PRN (04:41)
[2018-06-12 04:52] LABS: BASOPHILS % 0.6 % (0.0-1.0); EOSINOPHILS # (AUTO) 0.2 (0.0-0.4); HEMATOCRIT 42.1 % (38.2-49.6); HEMOGLOBIN 14.1 g/dL (14.0-18.0); LYMPHOCYTES # (AUTO) 1.2 (1.0-3.2); LYMPHOCYTES % 23.3 % (18.0-39.1); MEAN CORPUSCULAR HEMOGLOBIN 31.3 pg (28-32); MEAN CORPUSCULAR HGB CONC 33.5 g/dL (31-35); MEAN CORPUSCULAR VOLUME 93.3 fL (81-99); MONOCYTES # (AUTO) 0.5 (0.2-0.8); MONOCYTES % 9.5 % (4.4-11.3); NEUTROPHILS # (AUTO) 3.1 (2.1-6.9); NEUTROPHILS % 62.4 % (38.7-80.0); PLATELET COUNT 163 x10e3/uL (140-360); RED BLOOD COUNT 4.51 x10e6/uL (4.3-5.7); RED CELL DISTRIBUTION WIDTH 14.7 % (11.7-14.4)
[2018-06-12 05:06] LABS: INR 1.03; PROTHROMBIN TIME 14.4 seconds (11.9-14.5)
[2018-06-12 05:12] LABS: ANION GAP 9.5 mmol/L (8-16); BLOOD UREA NITROGEN 12 mg/dL (7-26); BUN/CREATININE RATIO 13 (6-25); CALCIUM 8.6 mg/dL (8.4-10.2); CARBON DIOXIDE 28 mmol/L (22-29); CHLORIDE 106 mmol/L (98-107); CREATININE, SERUM 0.96 mg/dL (0.72-1.25); EST GLOMERULAR FILTRATION RATE > 60 ML/MIN (60-); GLUCOSE 99 mg/dL (74-118); POTASSIUM 3.5 mmol/L (3.5-5.1); SODIUM 140 mmol/L (136-145)
[2018-06-12] MEDS: ALBUTEROL/IPRATROPIUM 3 ML NEB NEB SCH (06:42)
[2018-06-12] MEDS: FAMOTIDINE 20 MG TAB PO SCH (07:29)
[2018-06-12 08:46] VITALS: BP 134/61
[2018-06-12] MEDS ORDERED: NORVASC10 MG PO (09:10)
[2018-06-12] MEDS ORDERED: LOVENOX120 MG/0.8 SC (09:10)
[2018-06-12] MEDS: AMLODIPINE BESYLATE 10 MG TAB PO SCH (09:28)
[2018-06-12] MEDS: NICOTINE 14 MG/EA PATCH TOP SCH (09:28)
[2018-06-12] MEDS: PHENAZOPYRIDINE HCL 100 MG TAB PO SCH (09:28)
--- NOTE | 2018-06-12 13:37 | Discharge Summary ---
ADMISSION DIAGNOSES 1. Microscopic hematuria. 2. Coagulopathy due to Coumadin toxicity. 3. History of mechanical aortic valve replacement. 4. Hypertension. 5. Hypercholesterolemia. DISCHARGE DIAGNOSES 1. Microscopic hematuria. 2. Coagulopathy due to Coumadin toxicity. 3. History of mechanical aortic valve replacement. 4. Hypertension. 5. Hypercholesterolemia. 6. Hyponatremia. HISTORY: Patient has a history of hypertension, hypercholesterolemia, aortic valve replacement in 2003 with a mechanical valve, left carotid endarterectomy around 2005, left total knee replacement around 2006, and large hematoma evacuated from his left leg about 2 weeks ago at [facility]. HOSPITAL COURSE: A 63-year-old male who noticed blood-tinged urine came to the ER and was found to have significant microscopic hematuria and was admitted for further evaluation. On admission Urology was consulted. Chest x-ray was done that showed no abnormality. CT of the abdomen showed no renal calculi, no CT finding to explain patient's hematuria. Ultrasound showed echographic findings may correlate with the fat-containing umbilical hernia seen on CT abdomen and pelvis June 06, 2018, no new fluid collections. INR on admission was 4.29 with a PTT of 69.7. Patient was given 2 doses of vitamin K prior to a cystoscopy to lower his INR. During the cystoscopy and retrograde pyelograms, Urology took a biopsy of something he said appeared to be benign. Patient was placed on heparin versus the Coumadin during hospitalization. After the cystoscopy, patient was started on his heparin plus a loading dose of Coumadin and remained on both until time of discharge. Patient will be sent home with Lovenox 120 subcutaneous q.12 for 7 days and Norvasc 10 mg daily as well as home medications. He will follow up with his sql bi developer or primary care in 1 week to check his INR. Patient says he is usually pretty good about following up for his INR level since he is on Coumadin, but due to a in the family he did not go to his last visit, which was about 3 weeks ago. Patient understands discharge instructions and agrees to plan. Vital signs stable, patient afebrile. Dictated by: Randi Serrano NP HERBERT GARCIA MD Job#: [id number] EV
--- NOTE | 2018-07-20 01:59 | Operative Report ---
DATE OF PROCEDURE: June 09, 2018 PREOPERATIVE DIAGNOSIS: Gross hematuria. POSTOPERATIVE DIAGNOSES: 1. Gross hematuria. 2. Trigonal lesion. OPERATIONS PERFORMED: 1. Cystourethroscopy with bilateral ureteral catheterization and retrograde ureteropyelography (separate procedure performed for the hematuria). 2. Interpretation of retrograde ureterography. 3. Cystourethroscopy with bladder biopsy (separate procedure performed for the trigonal lesion). ANESTHESIA: General. COMPLICATIONS: None. CLINICAL SUMMARY: Zoltan Anderson is a 63-year-old man with gross hematuria. He is brought for the above procedures. He is aware of the risks of bleeding, infection, injury to adjacent structures, need for additional procedures and elected to proceed. OPERATIVE PROCEDURE IN DETAIL: Informed consent was verified. Zoltan Anderson was appropriately identified and taken to the operating room, placed on the cystoscopy table in supine position. Anesthesia was uneventfully begun. The patient was then carefully and gently repositioned in the dorsal lithotomy position with all pressure points well padded. His genitalia was prepared and draped in the usual sterile fashion. A 22.5-Swedish cystourethroscope sheath with a visual obturator in place was atraumatically inserted into the patient's urethra. It was guided down the unremarkable distal urethra past the normal sphincteric region through the prostate bed which was significant for visually obstructing bilobar BPH with kissing lateral lobes. We entered the patient's bladder where panendoscopy revealed no suspicious mucosal lesions. No tumors were identified except for an unusual lesion at the middle of the trigone. Trabeculations were noted. An 8-Swedish catheter was used to cannulate each ureter and retrograde ureteral pyelograms were performed. Interpretation of retrograde ureteropyelography: Contrast was instilled in retrograde fashion bilaterally. There were no tumors, no stones and no diverticula. Unobstructed drainage was observed bilaterally fluoroscopically. Cold cup biopsy forceps were then utilized to biopsy this trigonal lesion. A Bugbee electrode was then utilized to fulgurate the entire region. Excellent hemostasis was obtained. The cystoscope was withdrawn and the patient was uneventfully reversed from anesthesia and taken to recovery room in stable condition. There were no complications during the procedure. The patient tolerated the procedure well. Digital rectal examination prior to leaving the operating room revealed a large, 40-g prostate, smooth, non-fluctuant without any nodules. Plans will be to follow the patient up in the office following his discharge so that we can discuss the pathology report as well as plan ongoing urological followup. Job#: [id number] VINH
== END 2018-06-12 10:55 | disposition home or self-care (01) | DRG 668 ==
LOC: ER 14:17 → ERHOLD 17:35 → IMCU 20:16 → OBSVTOIN 06-07 16:51 → MED/SURG2 06-08 12:18
PROVIDERS: ADMIT Internal Medicine; ATTEND Internal Medicine
PROC: BT40ZZZ Ultrasonography of Bladder (ICD-10-PCS; 2018-06-09)
PROC: 0TBB8ZX Excision of Bladder, Via Natural or Artificial Opening Endoscopic, Diagnostic (ICD-10-PCS; principal; 2018-06-09 15:30)
DX: D30.3 Benign neoplasm of bladder (principal); D65 Disseminated intravascular coagulation [defibrination syndrome]; E87.1 Hypo-osmolality and hyponatremia; N13.8 Other obstructive and reflux uropathy; R31.29 Other microscopic hematuria; I10 Essential (primary) hypertension; E78.00 Pure hypercholesterolemia, unspecified; Z95.2 Presence of prosthetic heart valve; E87.6 Hypokalemia; E83.51 Hypocalcemia; E78.5 Hyperlipidemia, unspecified; Z96.652 Presence of left artificial knee joint; F17.210 Nicotine dependence, cigarettes, uncomplicated; T45.515A Adverse effect of anticoagulants, initial encounter; G47.00 Insomnia, unspecified; E66.9 Obesity, unspecified; Z68.31 Body mass index [BMI] 31.0-31.9, adult; J44.9 Chronic obstructive pulmonary disease, unspecified; K42.9 Umbilical hernia without obstruction or gangrene; N40.1 Benign prostatic hyperplasia with lower urinary tract symptoms
CPT/HCPCS: 36415; 71045; 74176; 74420; 76705; 80048; 80053; 80061; 81001; 82550; 82553; 83690; 83735; 84484; 85025; 85610; 85730; 87086; 88305; 93005; 94640; 99284; G0378; J0290; J0696; J1100; J1580; J2001; J2250; J2270; J2405; J3430; J7030; J7120

== ENCOUNTER 2018-12-25 10:47 | Emergency (ER) | payer MEDICARE, OTHER ==
[~2018-12-25] VITALS: Ht 190.5 cm; Wt 108.9 kg
[~2018-12-25 10:47] MED LIST changes: +BYSTOLIC5 MG PO; +LOVENOX120 MG/0.8 SC; +NORVASC10 MG PO; +PRAVASTATIN SOD40 MG PO
--- OUTSIDE RECORDS SUMMARY | 2018-12-25 10:51 | XMS REPORT | Clinical Summary ---
Author Author [employer] [facility] [facility] Address Unknown Phone Unavailable Care Team Providers Care [employer] Name Role Phone System, Provider Not In MD PCP Unavailable Allergies No Known Allergies Medications End Date Status Medication Sig Dispensed Refills Start Date Active warfarin (COUMADIN) 4 MG 0 tablet 8 Active zolpidem (AMBIEN) 10 mg TK 1 T PO QHS 2 tablet PRN 8 Active pravastatin (PRAVACHOL) TK 1 T PO QD 2 40 MG tablet 8 Active BYSTOLIC 5 mg tablet TK 1 T PO QD 5 8 Active ipratropium-albuterol USE 1 VIAL 0 (DUO-NEB) 0.5-2.5 mg/mL VIA NEBULIZER 8 nebulizer Q 6 H FOR SOB OR WHEEZING Active PROAIR HFA 90 INHALE 1 PUFF 0 mcg/actuation inhaler PO Q 4 H PRN 8 WHEEZING/ SOB Active acetaminophen-codeine TK 1 T PO Q 0 (TYLENOL WITH CODEINE #3) 4-6 H PRN 8 300-30 mg per tablet SEVERE PAIN Active ibuprofen (ADVIL,MOTRIN) TK 1 T PO QID 0 600 MG tablet 8 03/30/2018 traMADol (ULTRAM) 50 mg Take 1 tablet 12 tablet 0 tablet (50 mg total) 8 by mouth every 6 (six) hours as needed for moderate pain for up to 5 days. 04/04/2018 clindamycin (CLEOCIN) 300 Take 1 30 capsule 0 MG capsule capsule (300 8 mg total) by mouth 3 (three) times a day for 10 days. Active Problems Not on file Encounters Care Team Description Date Type Specialty Yolanda Sauer MD Solis, Daniel P., MD Closed fracture of proximal end of left tibia, unspecified fracture morphology, initial encounter (Primary Dx); Hematoma 03/25/2018 Emergency Emergency Medicine after 12/24/2017 Social History Date Tobacco Use Types Packs/Day Years Used Current Every Day Smoker Smokeless Tobacco: Current User Alcohol Use Drinks/Week oz/Week Comments Yes Sex Assigned at Date Recorded Not on file Industry Job Start Date Occupation Not on file Not on file Not on file Travel End Travel History Travel Start No recent travel history available. Last Filed Vital Signs Time Taken Vital Sign Reading 03/25/2018 5:10 PM CDT Blood Pressure 128/62 03/25/2018 5:10 PM CDT Pulse 77 03/25/2018 12:38 PM CDT Temperature 37.2 C (99 F) 03/25/2018 5:10 PM CDT Respiratory Rate 18 03/25/2018 5:10 PM CDT Oxygen Saturation 95% - Inhaled Oxygen - Concentration 03/25/2018 12:38 PM CDT Weight 107 kg (235 lb) 03/25/2018 12:38 PM CDT Height 182.9 cm (6') 03/25/2018 12:38 PM CDT Body Mass Index 31.87 Plan of Treatment Health Maintenance Due Date Last Done Comments COLON CANCER SCREENING 2003 SHINGLES VACCINES (#1) 2003 65+ PNEUMOCOCCAL VACCINE 2018 (1 of 2 - PCV13) PNEUMOCOCCAL 2018 POLYSACCHARIDE VACCINE AGE 65 AND OVER INFLUENZA VACCINE 03/15/2019 Procedures Comments Procedure Name Priority Date/Time Associated Diagnosis XR TIBIA FIBULA 2 VW LEFT STAT 03/25/2018 2:45 PM CDT BLOOD CULTURE, AEROBIC & Routine 03/25/2018 ANAEROBIC 2:27 PM CDT SMEAR REVIEW STAT 03/25/2018 2:18 PM CDT ZZESTIMATED GFR STAT 03/25/2018 2:18 PM CDT B NATRIURETIC PEPTIDE STAT 03/25/2018 2:18 PM CDT TROPONIN STAT 03/25/2018 2:18 PM CDT LIPASE LEVEL STAT 03/25/2018 2:18 PM CDT LACTIC ACID LEVEL, SEPSIS STAT 03/25/2018 - NOW AND REPEAT 2X EVERY 2:18 PM CDT 3 HOURS HEPATIC FUNCTION PANEL STAT 03/25/2018 2:18 PM CDT BASIC METABOLIC PANEL STAT 03/25/2018 2:18 PM CDT HC COMPLETE BLD COUNT STAT 03/25/2018 W/AUTO DIFF 2:18 PM CDT BLOOD CULTURE, AEROBIC & Routine 03/25/2018 ANAEROBIC 2:18 PM CDT WV PUNCTURE DRAINAGE OF Routine 03/25/2018 LESION 1:41 PM CDT WV DRAIN LOWER LEG DEEP Routine 03/25/2018 ABSC/HEMATOMA 1:41 PM CDT WV DRAINAGE OF Routine 03/25/2018 HEMATOMA/FLUID 1:41 PM CDT after 12/24/2017 Results * XR Tibia Fibula 2 Vw Left (03/25/2018 2:45 PM CDT) Narrative Performed At EXAMINATION:XR TIBIA FIBULA 2 [...] to 10 cm distally to the cortex. [id number] Procedure Note Interface, Radiology Results Incoming - [...] to 10 cm distally to the cortex. [id number] Performing Organization Address City/State/Zipcode Phone Number [facility] [address] [place] [address] * Blood culture, aerobic & anaerobic (03/25/2018 2:27 PM CDT) Only the most recent of 2 results within the time period is included. Blood culture isolate No growth after 5 days of [facility] DEPARTMENT OF incubation. PATHOLOGY AND Comment: GENOMIC MEDICINE Specimen Information Specimen Source: Blood Specimen Site: l. hand Specimen Blood Performing Organization Address City/State/Zipcode Phone Number [facility] DEPARTMENT OF [address] [place] [address] PATHOLOGY AND GENOMIC MEDICINE * Smear review (03/25/2018 2:18 PM CDT) Platelet slide review Simone adequate [facility] DEPARTMENT OF PATHOLOGY AND GENOMIC MEDICINE Anisocytosis 1+ [facility] DEPARTMENT OF PATHOLOGY AND GENOMIC MEDICINE Ovalocytes 1+ [facility] DEPARTMENT OF PATHOLOGY AND GENOMIC MEDICINE Enlarged platelets 1+ [facility] DEPARTMENT OF PATHOLOGY AND GENOMIC MEDICINE Performing Organization Address City/State/Zipcode Phone Number [facility] [place] [place] [address] [place] [address]. [place] [address] PATHOLOGY AND GENOMIC MEDICINE * Lactic acid level, SEPSIS - Now and repeat 2x every 3 hours (03/25/2018 2:18 PM CDT) Lactic acid 1.5 0.5 - 2.2 mmol/L [facility] DEPARTMENT OF PATHOLOGY AND GENOMIC MEDICINE Specimen Blood Performing Organization Address City/[facility] Phone Number [facility] [place] [place] [address] [place] [address]. [place] [address] PATHOLOGY AND GENOMIC MEDICINE * Estimated GFR (03/25/2018 2:18 PM CDT) GFR Non Af Amer 75 mL/min/1.73 m2 [facility] DEPARTMENT OF PATHOLOGY AND GENOMIC MEDICINE GFR Af Amer >90 mL/min/1.73 m2 [facility] DEPARTMENT OF Comment: PATHOLOGY AND Chronic kidney [...] Americans. Specimen Plasma specimen Performing Organization Address City/State/Zipcode Phone Number [place] [phone] [facility] [place] [address] PATHOLOGY AND GENOMIC MEDICINE * Troponin (03/25/2018 2:18 PM CDT) Troponin <0.30 0.00 - 0.30 ng/mL [facility] DEPARTMENT OF Comment: PATHOLOGY AND 0.11 - 1.49 GENOMIC MEDICINE ng/mlMay indicate increased risk of acute coronary syndrome. >=1.5 ng/ml Consistent with acute myocardial infarction. The diagnostic value of a single normal or non-diagnostic result is questionable.Serial samples at 2-6 hour intervals are required to rule out acute myocardial injury. Specimen Plasma specimen Performing Organization Address City/[facility]/Zipcode Phone Number [address] [place] [address] PATHOLOGY AND GENOMIC MEDICINE * CBC with platelet and differential (03/25/2018 2:18 PM CDT) WBC 6.2 4.2 - 11.0 k/uL [facility] DEPARTMENT OF PATHOLOGY AND GENOMIC MEDICINE RBC 4.98 4.04 - 5.86 m/uL [facility] DEPARTMENT OF PATHOLOGY AND GENOMIC MEDICINE HGB 15.5 13.0 - 17.3 g/dL [facility] DEPARTMENT OF PATHOLOGY AND GENOMIC MEDICINE HCT 47.4 (H) 34.0 - 45.0 % [facility] DEPARTMENT OF PATHOLOGY AND GENOMIC MEDICINE MCV 95.2 80.0 - 98.0 fL [facility] DEPARTMENT OF PATHOLOGY AND GENOMIC MEDICINE MCH 31.1 27.0 - 34.0 pg [facility] DEPARTMENT OF PATHOLOGY AND GENOMIC MEDICINE MCHC 32.7 31.5 - 36.5 g/dL [facility] DEPARTMENT OF PATHOLOGY AND GENOMIC MEDICINE RDW - SD 52.6 (H) 37.0 - 51.0 fL [facility] DEPARTMENT OF PATHOLOGY AND GENOMIC MEDICINE MPV 10.3 7.4 - 10.4 fL [facility] DEPARTMENT OF PATHOLOGY AND GENOMIC MEDICINE Platelet count 182 150 - 400 k/uL [facility] DEPARTMENT OF PATHOLOGY AND GENOMIC MEDICINE Nucleated RBC 0.00 /100 WBC [facility] DEPARTMENT OF PATHOLOGY AND GENOMIC MEDICINE Neutrophils 71.3 (H) 36.0 - 66.0 % [facility] DEPARTMENT OF PATHOLOGY AND GENOMIC MEDICINE Lymphocytes 14.6 (L) 24.0 - 44.0 % [facility] DEPARTMENT OF PATHOLOGY AND GENOMIC MEDICINE Monocytes 8.1 (H) 0.0 - 6.0 % [facility] DEPARTMENT OF PATHOLOGY AND GENOMIC MEDICINE Eosinophils 3.9 0.0 - 6.0 % [facility] DEPARTMENT OF PATHOLOGY AND GENOMIC MEDICINE Basophils 1.3 (H) 0.0 - 1.2 % [facility] DEPARTMENT OF PATHOLOGY AND GENOMIC MEDICINE Immature granulocytes 0.8 0.0 - 1.0 % [facility] DEPARTMENT OF PATHOLOGY AND GENOMIC MEDICINE Specimen Blood Performing Organization Address [facility] [place] [address] PATHOLOGY AND GENOMIC MEDICINE * B natriuretic peptide (03/25/2018 2:18 PM CDT) BNP 77 0 - 100 pg/mL [facility] DEPARTMENT OF PATHOLOGY AND GENOMIC MEDICINE Specimen Blood Performing Organization Address [facility] [place] [address] PATHOLOGY AND GENOMIC MEDICINE * Lipase level (03/25/2018 2:18 PM CDT) Lipase 49 13 - 60 U/L [facility] DEPARTMENT OF PATHOLOGY AND GENOMIC MEDICINE Specimen Plasma specimen Performing Organization Address [facility] [place] [address] PATHOLOGY AND [facility] MEDICINE * Hepatic function panel (03/25/2018 2:18 PM CDT) Albumin 3.3 (L) 3.5 - 5.0 g/dL [facility] DEPARTMENT OF PATHOLOGY AND GENOMIC MEDICINE Total bilirubin 1.0 0.2 - 1.2 mg/dL [facility] DEPARTMENT OF PATHOLOGY AND GENOMIC MEDICINE Bilirubin direct 0.2 0.0 - 0.4 mg/dL [facility] DEPARTMENT OF PATHOLOGY AND GENOMIC MEDICINE Alkaline phosphatase 91 0 - 129 U/L [facility] DEPARTMENT OF PATHOLOGY AND GENOMIC MEDICINE Protein 6.3 6.3 - 8.3 g/dL [facility] DEPARTMENT OF PATHOLOGY AND GENOMIC MEDICINE ALT 16 5 - 50 U/L [facility] DEPARTMENT OF PATHOLOGY AND GENOMIC MEDICINE AST 25 10 - 50 U/L [facility] DEPARTMENT OF PATHOLOGY AND GENOMIC MEDICINE Specimen Plasma specimen Performing Organization Address City/[facility] Corporation[place] [address] PATHOLOGY AND GENOMIC MEDICINE * Basic metabolic panel (03/25/2018 2:18 PM CDT) Sodium 141 135 - 150 mEq/L [facility] DEPARTMENT OF PATHOLOGY AND GENOMIC MEDICINE Potassium 4.3 3.5 - 5.0 mEq/L [facility] DEPARTMENT OF PATHOLOGY AND GENOMIC MEDICINE Chloride 104 98 - 112 mEq/L [facility] DEPARTMENT OF PATHOLOGY AND GENOMIC MEDICINE CO2 27 24 - 31 mmol/L [facility] DEPARTMENT OF PATHOLOGY AND GENOMIC MEDICINE Anion gap 10@ANIO 7 - 15 mEq/L [facility] DEPARTMENT OF PATHOLOGY AND GENOMIC MEDICINE BUN 10 7 - 18 mg/dL [facility] DEPARTMENT OF PATHOLOGY AND GENOMIC MEDICINE Creatinine 1.00 0.70 - 1.20 mg/dL [facility] DEPARTMENT OF PATHOLOGY AND GENOMIC MEDICINE Glucose 112 (H) 65 - 100 mg/dL [facility] DEPARTMENT OF PATHOLOGY AND GENOMIC MEDICINE Calcium 8.6 (L) 8.8 - 10.2 mg/dL [facility] DEPARTMENT OF PATHOLOGY AND GENOMIC MEDICINE Specimen Plasma specimen Performing Organization Address City/State/[facility] Corporation[facility] Phone Number [place] [address] [place] [address] PATHOLOGY AND GENOMIC MEDICINE * INCISION AND DRAINAGE (03/25/2018 1:41 PM CDT) Narrative Performed At Yolanda Sauer MD 03/26/20189:54 [...] of procedure:Tolerated well, no immediate complications after 12/24/2017 Insurance Payer Benefit Subscriber ID Type Phone Address Plan / Group AETNA AETNA PPO xxxxxxxxxx PPO OPEN CHOICE MEDICARE MEDICARE xxxxxxxxxxx Medicare [place], [place] PART A AND B Advance Directives Patient has advance care planning documents on file. For more information, jabier carcamo contact: Juan Carlos Arita [address] [place] [address]
== END 2018-12-25 12:20 | disposition home or self-care (01) ==
LOC: ER 10:47
DX: H65.03 Acute serous otitis media, bilateral (principal); I10 Essential (primary) hypertension; I51.9 Heart disease, unspecified; J98.4 Other disorders of lung
CPT/HCPCS: 99283

== ENCOUNTER 2019-10-27 14:17 | Inpatient (IN) | payer MEDICARE, OTHER ==
[~2019-10-27] VITALS: Ht 182.9 cm; Wt 92.5 kg
[2019-10-27] MEDS ORDERED: PANTOPRAZOLE 40 MG 10ML VIAL IV STA (15:13)
[2019-10-27] MEDS ORDERED: ONDANSETRON HCL INJ 2MG/ML 2ML 2 MG/ML VIAL IV STA (15:13)
[2019-10-27] MEDS ORDERED: MORPHINE SULFATE INJ 4 MG/ML INJ 1ML IV STA (15:13)
[2019-10-27] MEDS ORDERED: SODIUM CHLORIDE 0.9% 1000ML 1,000 ML ONE (15:31)
[2019-10-27 15:45] LABS: BASOPHILS % 0.7 % (0.0-1.0); EOSINOPHILS # (AUTO) 0.2 (0.0-0.4); EOSINOPHILS % 3.1 % (0.0-6.0); HEMATOCRIT 44.4 % (38.2-49.6); HEMOGLOBIN 15.1 g/dL (14.0-18.0); LYMPHOCYTES # (AUTO) 0.9 (1.0-3.2); LYMPHOCYTES % 16.2 % (18.0-39.1); MEAN CORPUSCULAR HEMOGLOBIN 33.2 pg (28-32); MEAN CORPUSCULAR VOLUME 97.6 fL (81-99); MONOCYTES # (AUTO) 0.6 (0.2-0.8); MONOCYTES % 10.5 % (4.4-11.3); NEUTROPHILS # (AUTO) 3.8 (2.1-6.9); NEUTROPHILS % 69.1 % (38.7-80.0); PLATELET COUNT 169 x10e3/uL (140-360); RED BLOOD COUNT 4.55 x10e6/uL (4.3-5.7); RED CELL DISTRIBUTION WIDTH 15.4 % (11.7-14.4)
[2019-10-27 15:57] LABS: PROTHROMBIN TIME 61.3 seconds (11.9-14.5)
[2019-10-27 15:59] LABS: PARTIAL THROMBOPLASTIN TIME 97.4 seconds (23.8-35.5)
[2019-10-27 16:03] LABS: INR 6.35
[2019-10-27 16:07] LABS: ALANINE AMINOTRANSFERASE 12 IU/L (0-55); ALBUMIN 3.3 g/dL (3.5-5.0); ALBUMIN/GLOBULIN RATIO 1.2 (0.8-2.0); ALKALINE PHOSPHATASE 118 IU/L (40-150); ANION GAP 9.1 mmol/L (8-16); BLOOD UREA NITROGEN 6 mg/dL (7-26); BUN/CREATININE RATIO 7 (6-25); CALCIUM 8.7 mg/dL (8.4-10.2); CARBON DIOXIDE 30 mmol/L (22-29); CHLORIDE 102 mmol/L (98-107); CREATINE KINASE 23 IU/L (30-200); CREATININE, SERUM 0.86 mg/dL (0.72-1.25); EST GLOMERULAR FILTRATION RATE > 60 ML/MIN (60-); GLUCOSE 86 mg/dL (74-118); LIPASE 9 U/L (8-78); MAGNESIUM 1.8 MG/DL (1.3-2.1); POTASSIUM 4.1 mmol/L (3.5-5.1); SODIUM 137 mmol/L (136-145)
[2019-10-27] MEDS ORDERED: SODIUM CHLORIDE 0.9% 50ML 50 ML ONE (16:30)
[2019-10-27] MEDS ORDERED: IOPAMIDOL 370 MG/ML 200 ML INFUS..BTL INJ ONE (16:30)
--- NOTE | 2019-10-27 17:59 | Diagnostic Imaging Report ---
EXAMINATION: CT of the chest, abdomen and pelvis with contrast. TECHNIQUE: Spiral CT images of the chest, abdomen and pelvis were performed from the lung apices to the lesser trochanters after the intravenous administration of 100 cc of Isovue 370 and the oral administration of water. Coronal and sagittal reformatted images were obtained. COMPARISON: None. CLINICAL HISTORY:No history of trauma. Mass in the left scapular region/right posterior chest, soreness for the last week, patient on anticoagulation DISCUSSION: CHEST: LINES/TUBES: None. LUNGS AND AIRWAYS: 4-5 mm pulmonary nodule in the lateral left lower lobe (series 4, image 122). No other pulmonary nodules. No masses or consolidation. Airways are clear, without endobronchial lesions. PLEURA: No effusion or pneumothorax. HEART AND MEDIASTINUM: The thyroid gland is normal. The heart and pericardium are within normal limits. Aortic valve replacement. Atherosclerotic disease of the thoracic aorta, with prominent soft plaque noted at the arch and descending aorta. Small penetrating ulcer in the descending aorta (series 102, image 86). No periaortic hematoma. LYMPH NODES: No significant mediastinal, hilar or axillary lymphadenopathy is seen. BONES AND SOFT TISSUES: No bony destructive lesions. Mild bilateral gynecomastia, right greater than left. Moderate thickening with area of heterogeneous increased density measuring approximately 8.1 x 4.7 x 11.6 cm in the region of the right latissimus dorsi/serratus muscle inferior to the scapular tip (series 102, image 76), consistent with a hematoma. ABDOMEN/PELVIS: HEPATOBILIARY: No focal hepatic lesions. No intra or extrahepatic biliary ductal dilation. GALLBLADDER: No radio-opaque stones or sludge. No wall thickening. SPLEEN: Mild splenomegaly, measuring 13.1 cm in AP diameter. PANCREAS: No focal masses or ductal dilatation. ADRENALS: No adrenal nodules. KIDNEYS/URETERS: No hydronephrosis, stones, or solid mass lesions. PELVIC ORGANS/BLADDER: Bladder and prostate are unremarkable. PERITONEUM/RETROPERITONEUM: No free air or fluid. LYMPH NODES: No intra-abdominal,retroperitoneal, pelvic or inguinal lymphadenopathy. VESSELS: The celiac trunk,superior and inferior mesenteric and bilateral renal arteries are patent The portal, superior mesenteric and splenic veins are patent. Atherosclerotic disease of the abdominal aorta with soft and calcified plaque predominantly in the distal portion extending to bilateral iliac vessels. GI TRACT: No bowel dilation or evidence of obstruction. No pericolonic inflammatory changes. BONES AND SOFT TISSUES: No aggressive lytic lesions. Degenerated discs in the lower thoracic and lumbosacral spine with associated osteophytosis. Soft tissues are grossly unremarkable. IMPRESSION: 1. Large hematoma in the region of the right latissimus dorsi/serratus muscles inferior to the scapular tip. No active contrast extravasation. No other hematoma or evidence of internal bleeding. 2. 4-5 mm pulmonary nodule in the lateral left lower lobe. If patient is low risk, no further follow-up is indicated per Fleischner Society 2017 guidelines. 3. Mild splenomegaly. Signed by: Dr. Vidal Hillman M.D. on 10/27/2019 5:56 PM
[2019-10-27 18:14] LABS: BILIRUBIN,URINE NEGATIVE (NEGATIVE); CLARITY,URINE HAZY (CLEAR); COLOR,URINE YELLOW (YELLOW); KETONES,URINE NEGATIVE (NEGATIVE); LEUKOCYTE ESTERASE ,URINE NEGATIVE (NEGATIVE); NITRITE,URINE NEGATIVE (NEGATIVE); PROTEIN,URINE DIPSTICK NEGATIVE (NEGATIVE); URINE UROBILINOGEN 0.2 mg/dL (0.2 - 1)
[2019-10-27 18:15] LABS: BACTERIA,URINE FEW /HPF; EPITHELIAL CELLS,URINE FEW /LPF; RBC,URINE 0-5 /HPF (0-5); WBC,URINE (MAN) 0-5 /HPF (0-5)
[2019-10-27] MEDS ORDERED: MORPHINE SULFATE 2 MG/ML SYR 1ML IV PRN (18:30)
[2019-10-27] MEDS ORDERED: ONDANSETRON HCL INJ 2MG/ML 2ML 2 MG/ML VIAL IV PRN (18:30)
[2019-10-27] MEDS ORDERED: HYDROCODONE/APAP 5MG-325MG TAB PO PRN (19:15)
[2019-10-27] MEDS ORDERED: MELATONIN 5 MG TABLET PO PRN (19:15)
[2019-10-27] MEDS ORDERED: ACETAMINOPHEN 325 MG TAB PO PRN (19:15)
[2019-10-27] MEDS ORDERED: HYDRALAZINE HCL 20 MG/ML VIAL IV PRN (19:15)
[2019-10-27] MEDS ORDERED: SODIUM CHLORIDE 0.9% 250ML 250 ML ONE (19:36)
--- NOTE | 2019-10-27 22:38 | NUR ---
PT ARRIVED BY STRETCHER TO ROOM 104. PT IS AAOX3, RR EVEN AND NON-LABORED, ON ROOM AIR. PT REPORTS PAIN TO (R) SHOULDER. SWELLING NOTED TO (R) SCAPULA. ORIENTED PT TO HOSPITAL POLICIES, CALL LIGHT, PHONE, BED CONTROLS AND LIGHTS. LEFT PT SITTING ON SIDE IF BED, BED IN LOW LOCKED POSITION, SIDE RAILS UPX2, CALL LIGHT AND PHONE WITHIN REACH. Addendum: 10/27/19 at 2338 by Bernadette Miles RN PT HAS FFP INFUSING UPON ARRIVAL AT 225ML/HR.
[2019-10-27 22:45] VITALS: BP 125/61
[2019-10-27] MEDS: ONDANSETRON HCL INJ 2MG/ML 2ML 2 MG/ML VIAL IV PRN (22:49)
[2019-10-27] MEDS: MORPHINE SULFATE 2 MG/ML SYR 1ML IV PRN (22:49)
[2019-10-27 22:54] VITALS: BP 109/53
[2019-10-27 23:01] VITALS: BP 125/61
[2019-10-27] MEDS ORDERED: ATENOLOL50 MG PO (23:45)
[2019-10-27 23:54] VITALS: BP 110/54
[2019-10-28] VITALS (8 sets, daily range): BP systolic 125–152; BP diastolic 56–66
[2019-10-28 00:16] LABS: BASOPHILS % 0.5 % (0.0-1.0); EOSINOPHILS # (AUTO) 0.2 (0.0-0.4); EOSINOPHILS % 4.3 % (0.0-6.0); HEMATOCRIT 38.4 % (38.2-49.6); HEMOGLOBIN 12.8 g/dL (14.0-18.0); LYMPHOCYTES # (AUTO) 0.8 (1.0-3.2); LYMPHOCYTES % 19.2 % (18.0-39.1); MEAN CORPUSCULAR HEMOGLOBIN 32.9 pg (28-32); MEAN CORPUSCULAR HGB CONC 33.3 g/dL (31-35); MEAN CORPUSCULAR VOLUME 98.7 fL (81-99); MONOCYTES # (AUTO) 0.3 (0.2-0.8); MONOCYTES % 7.8 % (4.4-11.3); NEUTROPHILS # (AUTO) 2.7 (2.1-6.9); NEUTROPHILS % 67.7 % (38.7-80.0); PLATELET COUNT 146 x10e3/uL (140-360); RED BLOOD COUNT 3.89 x10e6/uL (4.3-5.7); RED CELL DISTRIBUTION WIDTH 15.5 % (11.7-14.4)
[2019-10-28 00:32] LABS: ANION GAP 7.8 mmol/L (8-16); BLOOD UREA NITROGEN 6 mg/dL (7-26); BUN/CREATININE RATIO 7 (6-25); CARBON DIOXIDE 28 mmol/L (22-29); CHLORIDE 104 mmol/L (98-107); CREATININE, SERUM 0.92 mg/dL (0.72-1.25); EST GLOMERULAR FILTRATION RATE > 60 ML/MIN (60-); GLUCOSE 106 mg/dL (74-118); POTASSIUM 3.8 mmol/L (3.5-5.1); SODIUM 136 mmol/L (136-145)
[2019-10-28 00:53] LABS: CREATINE KINASE MB 1.1 ng/mL (0-5.0)
--- NOTE | 2019-10-28 01:28 | History and Physical ---
CHIEF COMPLAINT: Right upper shoulder and back pain. HISTORY OF PRESENT ILLNESS: This is a 64-year-old male, who seems to be very noncompliant with his medical care based on his history, who has a history of an aortic valve replacement back in 2003, mechanical valve, left carotid endarterectomy in 2005, and total left knee replacement in 2006, who apparently back in May of 2018, had a large hematoma evacuated from his left leg due to supratherapeutic INR, now presents with right upper back pain, ongoing for the last 2 to 3 weeks. The patient reports that the pain has progressively gotten worse and came to the ED for further evaluation. He denies any trauma to his right upper back. Denies hitting any object to the right upper back. Denies falls. CT imaging here at the [facility] shows a large hematoma with a supratherapeutic INR found on lab findings. The patient denies any complaints currently at this time. Denies any chest pain or any palpitations. Denies any black tarry stools, any blood in the stools. No hematuria. No hematemesis or hemoptysis. His INR was found to be 6.35. The patient is also very noncompliant following up with his PCP. Of note, looking in the records, he has seen 3 PCPs over the course of 1 year. He reports that the last time he checked his INR was about 4 months ago. He also endorses that he is very noncompliant. He does not follow up with a cash application clerk as well. He does not recall the last time he saw his cash application clerk. Of note, he thinks is Dr. Valencia or Dr. Durbin. The patient was seen and evaluated at bedside on the medical floor in the ER. He is currently doing well with no other issues at this time. REVIEW OF SYSTEMS: Pertinent positives, right upper back pain with bruising. The rest of 14-point review of systems have been reviewed with the patient and are negative. ALLERGIES: NO KNOWN DRUG ALLERGIES. HOME MEDICATIONS: None available at this time, but we do know he takes Tylenol No. 3 and Coumadin at home. PAST MEDICAL HISTORY: Aortic valve replacement in 2003 mechanical, hypertension, hyperlipidemia. PAST SURGICAL HISTORY: He had aortic valve replaced in 2003, mechanical valve. He had a left carotid endarterectomy in 2005, total left knee replacement in 2006. He also had a large hematoma in the left lower leg, evacuated back in May of 2018. FAMILY HISTORY: Hypertension and diabetes. SOCIAL HISTORY: No drugs. No alcohol. He does not smoke. Good social support. PHYSICAL EXAMINATION: VITAL SIGNS: Temperature is 99, pulse 91, respiratory rate is 18, blood pressure 135/54, pulse ox 97% on room air. GENERAL: No acute distress, alert and oriented x3. Cooperative on examination. HEENT: Normocephalic and atraumatic. Eyes; pupils are equal, round, and reactive to light bilaterally. Extraocular movements intact bilaterally. Throat; no evidence of erythema or exudates in the posterior pharynx. Has poor dentition. NECK: Supple. Good range of motion. PULMONARY: Clear to auscultation bilaterally. No wheezing, rales, or rhonchi. No crackles appreciated. CARDIOVASCULAR: S1 and S2. No murmurs, rubs, or gallops. GI: Abdomen is soft, nausea, nontender to palpation. Bowel sounds present. MUSCULOSKELETAL: He has tender to palpation in the right upper back with some bruising appreciated. NEUROLOGICAL: Cranial nerves II through XII grossly intact. No evidence of any neurological deficits on exam. SKIN: Intact. Warm to touch. Good cap refill. PSYCHIATRIC: Normal affect and mood. EXTREMITIES: No edema. Good range of motion throughout. LABORATORY DATA: White count 5.5, hemoglobin 15, hematocrit 44, and platelets of 169. Coagulation; PT 61, INR 6.35, PTT 97. Chemistry; sodium 137, potassium 4.1, chloride 102, bicarb 30, anion gap of 9, BUN 6, creatinine 0.86, glucose 86, calcium 8.7, magnesium 1.8, total bilirubin was 1.3, AST 23, ALT 12, alkaline phosphatase 118. CK is 23, CK-MB is 0.8, troponin is 0.013. BNP 74. Total protein 6.1, albumin is 3.3, lipase is 9. Urinalysis was negative. MICROBIOLOGY: Blood and urine cultures collected. IMAGING STUDIES: Chest CT shows a large hematoma in the region of the right lateral latissimus dorsi and serratus muscles inferior to this to the scapular tip. No active contrast extravasation. No other hematoma, evidence of internal bleeding seen. A 4 to 5 mm pulmonary nodule in the left lower lobe of the lung. He needs outpatient followup as an outpatient. Mild splenomegaly. CT abdomen and pelvis with similar findings as described above on CT chest. IMPRESSION: 1. Right upper back hematoma secondary to supratherapeutic INR. 2. Supratherapeutic INR. 3. Mechanical aortic valve. 4. History of hypertension. 5. Medical noncompliance. PLAN: At this time, his INR is supratherapeutic with evidence of a hematoma with pain. At this time, his INR needs to be between 2.5 to 3.5, but he is very noncompliant, has not followed up with his PCP in 4 months and he was given a prescription for 90 days of Coumadin. At this time, his Coumadin will be held. He will be given some FFPs due to active bleeding seen. He has a history of left lower extremity hematoma evacuation back in May of 2018 at [facility]. At this time, he will get 1 Jumbo FFP to help reverse some of the INR. We will repeat an INR level in the morning. He will likely need to be restarted back on his Coumadin to maintain at a level of 2.5 to 3.5. I will go ahead and consult with Cardiology as he reports that he thinks that his cash application clerk is Dr. Valencia. He has not seen a cash application clerk in more than 1 year now. I will resume all his medications once they are available in the computer. Encourage ambulation. He is going to be on a heart healthy diet. We will monitor blood and urine cultures, but I am not sure the reason for that ordered by the ER physician. His white count is normal. He is afebrile and he is normotensive. Otherwise, we will continue with same plan of care and monitor very closely. MD FARSHAD Oneill/MAYRAL /[id number]
[2019-10-28] MEDS: MORPHINE SULFATE 2 MG/ML SYR 1ML IV PRN ×4 (03:05→20:52)
[2019-10-28 05:27] LABS: BASOPHILS % 1.1 % (0.0-1.0); EOSINOPHILS # (AUTO) 0.2 (0.0-0.4); EOSINOPHILS % 4.5 % (0.0-6.0); HEMOGLOBIN 12.6 g/dL (14.0-18.0); LYMPHOCYTES # (AUTO) 0.8 (1.0-3.2); LYMPHOCYTES % 21.5 % (18.0-39.1); MEAN CORPUSCULAR HGB CONC 33.2 g/dL (31-35); MEAN CORPUSCULAR VOLUME 99.5 fL (81-99); MONOCYTES # (AUTO) 0.4 (0.2-0.8); MONOCYTES % 9.8 % (4.4-11.3); NEUTROPHILS # (AUTO) 2.4 (2.1-6.9); NEUTROPHILS % 62.8 % (38.7-80.0); PLATELET COUNT 133 x10e3/uL (140-360); RED BLOOD COUNT 3.82 x10e6/uL (4.3-5.7); RED CELL DISTRIBUTION WIDTH 15.3 % (11.7-14.4)
[2019-10-28 05:40] LABS: INR 2.55; PROTHROMBIN TIME 29.4 seconds (11.9-14.5)
[2019-10-28 05:41] LABS: PARTIAL THROMBOPLASTIN TIME 74.6 seconds (23.8-35.5)
[2019-10-28 05:50] LABS: ALANINE AMINOTRANSFERASE 11 IU/L (0-55); ALBUMIN 2.8 g/dL (3.5-5.0); ALBUMIN/GLOBULIN RATIO 1.2 (0.8-2.0); ALKALINE PHOSPHATASE 97 IU/L (40-150); ANION GAP 10.7 mmol/L (8-16); BLOOD UREA NITROGEN 6 mg/dL (7-26); BUN/CREATININE RATIO 7 (6-25); CALCIUM 8.2 mg/dL (8.4-10.2); CARBON DIOXIDE 27 mmol/L (22-29); CHLORIDE 104 mmol/L (98-107); CREATININE, SERUM 0.88 mg/dL (0.72-1.25); EST GLOMERULAR FILTRATION RATE > 60 ML/MIN (60-); GLUCOSE 82 mg/dL (74-118); POTASSIUM 3.7 mmol/L (3.5-5.1); SODIUM 138 mmol/L (136-145)
[2019-10-28 06:20] LABS: CREATINE KINASE MB 1.3 ng/mL (0-5.0)
--- NOTE | 2019-10-28 06:46 | NUR ---
CONSULTATION CALLED TO MD VARGAS. NO NEW ORDERS.
--- NOTE | 2019-10-28 16:12 | Consultation ---
DATE OF CONSULTATION: 10/28/2019 Cardiology Consultation Supratherapeutic INR, spontaneous right shoulder back region hematoma/bleed. HISTORY OF PRESENT ILLNESS: Mr. Anderson is a 64-year-old gentleman with past medical history of hypertension, hypercholesteremia, carotid artery disease with prior history of left carotid endarterectomy, mechanical bileaflet aortic valve replacement in 2003 on chronic anticoagulant therapy with Coumadin. It does not seem to be clear if he is really following up with Cardiology or not, but we have never seen him before. Nonetheless, he reports that he follows up with Dr. Wilson, his PCP for INR checks, but cannot tell me when the last time he had an INR checked. Nonetheless, he has been on chronic anticoagulant therapy and about three weeks ago developed a painful knot around the right scapular region with bruising slowly progressing down the right flank and right side of his chest wall. He came into the ER for further care and management as this was painful for him. Upon arrival, he is noted to have an INR of 6.35. In the ER, he received one dose of FFP to help correct his coagulopathy. On my visit today, the patient is currently resting and seems to be relatively comfortable. He denies any chest pain or discomfort. He denies any exertional dyspnea. He has no other complaints outside of just pain and bruising over the right side of his back. PAST MEDICAL HISTORY: 1. Hypertension. 2. Hypercholesteremia. 3. Carotid artery disease with prior history of left carotid endarterectomy. 4. Aortic valve disease, status post mechanical bileaflet aortic valve replaced in 2003. PAST SURGICAL HISTORY: 1. History of left carotid endarterectomy 1999. 2. Mechanical aortic valve replaced in 2003. 3. History of left total knee replacement 2006. 4. Prior history of left leg hematoma in May of 2019. FAMILY HISTORY: Mother and father are both . Denies knowing much about his history. SOCIAL HISTORY: Denies any smoking, alcohol, or illicit drug use. ALLERGIES: NO KNOWN DRUG ALLERGIES. HOME MEDICATIONS: Include atenolol 50 mg daily, pravastatin 40 mg daily and Coumadin 6 mg daily. REVIEW OF SYSTEMS: GENERAL: Denies any fevers, chills, or weight changes. HEENT: No headaches, visual complaints, sore throat, or stuffy nose. RESPIRATORY: Denies any pleuritic chest pain, cough, or wheezing. CARDIOVASCULAR: Denies any chest pain, orthopnea, PND, palpitations, syncope, or near syncope. GI: Denies any abdominal pain, bright red blood per rectum, melena, hematemesis, nausea, or vomiting. : Denies any dysuria, pyuria, or change in urinary frequency. MUSCULOSKELETAL: Positive for right-sided shoulder and back pain as noted above. ENDOCRINE: Denies any heat or cold intolerance. No polyuria or polydipsia. NEUROLOGIC: Denies any focal weakness, numbness, tingling, seizures, headache, history of TIA or stroke. Remainder of review of systems negative otherwise mentioned. PHYSICAL EXAMINATION: VITAL SIGNS: Height of 72 inches, weight of 204 pounds, BMI is 27.7, temperature of 98.6, pulse of 87, respiratory rate 18, blood pressure 137/63, O2 saturation 92% on room air. GENERAL: Well-nourished, well-developed gentleman, who is currently no apparent distress. HEENT: Normocephalic and atraumatic. Pupils are equal, round, and reactive to light. Extraocular intact. Oropharynx clear. NECK: No elevation of jugular venous pulsation. There is a left carotid endarterectomy scar. There is faint right bruit. CARDIOVASCULAR: Normal S1, mechanical S2. Soft 2/6 systolic murmur in the right upper sternal border. LUNGS: Largely clear to auscultation bilaterally. There is some right back and hematoma right mid axillary side bruising noted. : Deferred. MUSCULOSKELETAL: There are 1 to 2+ bilateral radial pulses, diminished pedal pulses. NEUROLOGIC: Cranial nerves II through XII are intact. Strength is 5/5. Grossly nonfocal. PSYCH: Normal fluent speech. Appropriate affect. No anxiety or delusions. LABORATORY DATA: White count of 3.8, hemoglobin 12.6, hematocrit 38.0, and platelets of 133. Sodium 138, potassium 3.7, chloride 104, bicarb 27, BUN 6, creatinine of 0.88, glucose of 82, calcium of 8.2, AST 18, ALT 11, alkaline phosphatase 97, total protein 5.28, albumin of 2.8. INR initially was 6.35, now down to 2.55. UA is unremarkable. Chest CT reveals the presence of a large hematoma in the region of the right latissimus and inferior scapular tip as well as a 4-5 mm pulmonary nodule in the left lateral lobe. EKG reveals sinus rhythm, left anterior fascicular block and no ST-T wave changes. DIAGNOSES: 1. Large right back hematoma in the setting of supratherapeutic INR, by history, spontaneous. 2. Mechanical aortic valve replacement on chronic anticoagulant therapy. 3. Questionable frequency of anticoagulation checks and monitoring. 4. Carotid artery disease with prior history of left carotid endarterectomy. 5. Hypertension. 6. Hypercholesteremia. PLAN/RECOMMENDATIONS: 1. From a cardiovascular standpoint, we will recommend continue holding anticoagulant therapy and continue to let INR drift down. 2. The hematoma does not seem to be expanding by history and will need to monitor on serial exam. 3. Check labs daily including CBC and chemistry profile. 4. Continue his other cardiac medications. 5. We will adjust therapy as clinical course dictates. MD GWEN Corado/JAMAAL /[id number]
[2019-10-28] MEDS: ONDANSETRON HCL INJ 2MG/ML 2ML 2 MG/ML VIAL IV PRN ×2 (16:45→20:52)
--- NOTE | 2019-10-28 19:00 | NUR ---
WALKING ROUNDS PERFORMED RECEIVED PT LAYING SEMI FOWLERS IN BED, AAOX3, RR EVEN AND NON-LABORED, ON ROOM AIR. PT REPORTS PAIN TO ANTERIOR ABD. LEFT PT LAYING SEMI FOWLERS IN BED, BED IN LOW LOCKED POSITION, SIDE RAILS UPX2, CALL LIGHT AND PHONE WITHIN REACH.
--- NOTE | 2019-10-28 19:03 | NUR ---
WALKING ROUNDS COMPLETE, PT STABLE AT THIS TIME, WALKING ROUNDS COMPLETE.
--- NOTE | 2019-10-28 20:12 | Progress Note ---
DATE: 10/28/2019 Medicine Progress Note SUBJECTIVE: The patient reports feeling much better today. His area of the hematoma on the right upper back has improved tremendously. There is very minimal bruising. The area seems to have been left in size now. He reports feeling much better now. I spoke with Cardiology as well. His INR is 2.5 today. The patient is very noncompliant. PHYSICAL EXAMINATION: VITAL SIGNS: Temperature is 98.3, pulse 80, respiratory rate is 18, blood pressure 152/66, pulse ox 95% on room air. GENERAL: Not in acute distress. Alert and oriented x3. Cooperative on examination. HEENT: Head; normocephalic, atraumatic. Eyes; pupils are equal, round, and reactive to light bilaterally. Extraocular movements intact bilaterally. Throat; no evidence of erythema or exudates in the posterior pharynx. Has poor dentition. NECK: Supple. Good range of motion. PULMONARY: Clear to auscultation bilaterally. No wheezing, no rales, no rhonchi, no crackles appreciated. CARDIOVASCULAR: Positive S1 and S2. No murmurs, rubs, or gallops appreciated. ABDOMEN: Soft, nondistended, and nontender to palpation. Bowel sounds present. MUSCULOSKELETAL: Strength is 5/5 throughout. No evidence of any muscle deficits on examination. No weakness appreciated. NEUROLOGIC: Cranial nerves 2 through 12 grossly intact. No evidence of any neurological deficits on exam. SKIN: Intact. Warm to touch. Good cap refill. PSYCHIATRIC: Normal affect and mood. EXTREMITIES: No edema. Good range of motion throughout. LABORATORY FINDINGS: Show white count is 3.7, hemoglobin is 12.6, hematocrit is 38, and platelets of 133. Coagulation; PT 29, PTT 74, and INR 2.55. Chemistry; sodium 138, potassium 3.7, chloride 104, bicarb 27, anion gap of 10.7, and his creatinine is 0.88. Rest of the labs are stable. Troponin is 0.025. No further workup needed. Lipase level was 9. Urinalysis was negative. MICROBIOLOGY: Urine cultures are negative. Blood cultures are pending. IMAGING STUDIES: None new. IMPRESSION: 1. Right upper back hematoma secondary to supratherapeutic INR. 2. Supratherapeutic INR. 3. Mechanical aortic valve. 4. History of hypertension. 5. Medical noncompliance. PLAN: At this time, his INR is 2.55, much improved. We will continue to monitor. He did receive FFP yesterday. The area of his right upper back hematoma has improved tremendously. The size is about the same and he is mildly tender to palpation, which has improved. He also reports less pain today. We will monitor the patient very closely. I did speak with Cardiology, likely the patient can be discharged tomorrow on a warfarin regimen. He does need to follow up with his PCP and a anode worker as an outpatient. The patient again is very noncompliant. He does not even know what medications he takes. He does not even know who is doctors are. He does not even know who his anode worker is. At this time, likely if the patient does well, we will discharge home tomorrow. MD FARSHAD Oneill/JAMAAL /[id number]
[2019-10-29] VITALS (8 sets, daily range): BP systolic 108–157; BP diastolic 60–72
[2019-10-29 05:44] LABS: BASOPHILS % 0.8 % (0.0-1.0); EOSINOPHILS # (AUTO) 0.2 (0.0-0.4); EOSINOPHILS % 5.8 % (0.0-6.0); HEMATOCRIT 35.5 % (38.2-49.6); HEMOGLOBIN 11.6 g/dL (14.0-18.0); LYMPHOCYTES # (AUTO) 0.7 (1.0-3.2); LYMPHOCYTES % 19.5 % (18.0-39.1); MEAN CORPUSCULAR HEMOGLOBIN 32.6 pg (28-32); MEAN CORPUSCULAR HGB CONC 32.7 g/dL (31-35); MEAN CORPUSCULAR VOLUME 99.7 fL (81-99); MONOCYTES # (AUTO) 0.3 (0.2-0.8); MONOCYTES % 7.9 % (4.4-11.3); NEUTROPHILS # (AUTO) 2.4 (2.1-6.9); NEUTROPHILS % 65.7 % (38.7-80.0); PLATELET COUNT 133 x10e3/uL (140-360); RED BLOOD COUNT 3.56 x10e6/uL (4.3-5.7)
[2019-10-29 06:10] LABS: ALANINE AMINOTRANSFERASE 9 IU/L (0-55); ALBUMIN 2.7 g/dL (3.5-5.0); ALBUMIN/GLOBULIN RATIO 1.2 (0.8-2.0); ALKALINE PHOSPHATASE 83 IU/L (40-150); ANION GAP 6.3 mmol/L (8-16); BLOOD UREA NITROGEN 5 mg/dL (7-26); BUN/CREATININE RATIO 6 (6-25); CALCIUM 8.4 mg/dL (8.4-10.2); CARBON DIOXIDE 31 mmol/L (22-29); CHLORIDE 103 mmol/L (98-107); CREATININE, SERUM 0.81 mg/dL (0.72-1.25); EST GLOMERULAR FILTRATION RATE > 60 ML/MIN (60-); GLUCOSE 90 mg/dL (74-118); POTASSIUM 4.3 mmol/L (3.5-5.1); SODIUM 136 mmol/L (136-145)
[2019-10-29 06:11] LABS: INR 2.44; PROTHROMBIN TIME 28.3 seconds (11.9-14.5)
--- NOTE | 2019-10-29 07:10 | NUR ---
REPORT GIVEN TO ONCOMING SHIFT. PT IN STABLE CONDITION.
[2019-10-29] MEDS: MORPHINE SULFATE 2 MG/ML SYR 1ML IV PRN ×2 (08:00→17:13)
[2019-10-29] MEDS: WARFARIN SOD 3 MG TAB PO SCH ×2 (17:07→17:13)
[2019-10-29] MEDS ORDERED: WARFARIN SODIUM3 MG PO (18:24)
--- NOTE | 2019-10-29 18:31 | Discharge Summary ---
FINAL DISCHARGE DIAGNOSES: 1. Spontaneous right upper back hematoma secondary to supratherapeutic INR. 2. Aortic mechanical valve, on anticoagulation. 3. Hypertension. 4. Medical noncompliant. CONSULTANTS: Cardiology. PHYSICAL EXAMINATION: VITAL SIGNS: Temperature is 97.7, pulse is 77, respiratory rate 16, blood pressure 140/64, and pulse ox 97% on room air. LABORATORY FINDINGS: Show white count is 3.6, hemoglobin 11.6, hematocrit is 35.5, and platelets of 133. Chemistry; sodium 136, potassium 4.3, chloride 103, bicarb 31, anion gap of 6.3, BUN is 5, and creatinine is 0.81. Troponins are negative. LFTs within normal range. Albumin 2.7. Lipase level was 9. Urinalysis was negative. Blood cultures were negative. Urine cultures were negative. IMAGING STUDIES: Chest CT shows a large hematoma in the region of the right latissimus dorsi and Serratia muscles inferior to the scapular tip. No active contrast extravasation. No other hematoma or evidence of internal bleeding. There is a 4 to 5 mm pulmonary nodule in the lateral left lower lobe, which needs outpatient followup. Mild splenomegaly. I spoke with the patient about the findings of the imaging and he verbalized understanding and follow very closely in relation to his pulmonary nodules with his PCP. HOSPITAL COURSE: This is a 64-year-old male, very noncompliant with medical care, has a history of mechanical aortic valve. He comes into the ED after he reports having some right upper back pain and also found to have a supratherapeutic INR. The patient's INR on admission was found to be 6.35, given fresh frozen plasma downtrending to 2.4. The patient is doing much better today. Cardiology was consulted. Recommended decreasing warfarin to 3 mg daily with close followup and repeat INR 2 to 3 days. The patient was given only 7 tablets of warfarin. He is very close to follow up with his PCP. He denies any trauma to that right upper back. This is felt to be underlying spontaneous bleeding. His hemoglobin was stable on discharge. He denies any pain. There was no evidence of any extension or any enlargement of the right upper back. It was very mild to tender to palpation. There were some mild bruising appreciated. Otherwise, the patient was doing well and he was very ready to go home. He is to discharge to home by Cardiology. On the day of discharge, vital signs were stable, labs reviewed and stable. The patient was seen, evaluated, and examined thoroughly on the day of discharge. No other complaints. The patient verbalized understanding and agreed to plan of care to follow up with primary care physician in 2 to 3 days with INR check and the toe stapler in 2 weeks' time. The patient was advised to please follow very close in this week in 2 to 3 days get an INR checked to monitor his levels. MEDICATIONS: See medication reconciliation form. DISPOSITION: Home. CONDITION: Stable. DIET: Heart healthy. In the event of any worsening symptoms, the patient was advised to come back to the ED for further evaluation. Discharge summary took greater than 35 minutes. MD FARSHAD Oneill/MODL /[id number]
== END 2019-10-29 18:38 | disposition home or self-care (01) | DRG 813 ==
LOC: ER 14:17 → ERHOLD 18:16 → MED/SURG 22:32
PROVIDERS: ADMIT Internal Medicine; ATTEND Internal Medicine
PROC: 30233K1 Transfusion of Nonautologous Frozen Plasma into Peripheral Vein, Percutaneous Approach (ICD-10-PCS; principal; 2019-10-27)
DX: D68.32 Hemorrhagic disorder due to extrinsic circulating anticoagulants (principal); S20.221A Contusion of right back wall of thorax, initial encounter; T45.516A Underdosing of anticoagulants, initial encounter; Z95.2 Presence of prosthetic heart valve; Z91.14 Patient's other noncompliance with medication regimen; I10 Essential (primary) hypertension; E78.00 Pure hypercholesterolemia, unspecified; E78.2 Mixed hyperlipidemia; Z96.652 Presence of left artificial knee joint
CPT/HCPCS: 36415; 71260; 74177; 80048; 80053; 81001; 82550; 82553; 83690; 83735; 83880; 84484; 85025; 85610; 85730; 86850; 86900; 87040; 87086; 93005; 93306; 99284; J2270; J2405; J7030; J7050; P9017; Q9967

== ENCOUNTER 2019-12-20 13:34 | Emergency (ER) | payer MEDICARE, OTHER ==
[~2019-12-20] VITALS: Ht 190.5 cm; Wt 92.5 kg
[~2019-12-20 13:34] MED LIST changes: +ATENOLOL50 MG PO
--- OUTSIDE RECORDS SUMMARY | 2019-12-20 13:40 | XMS REPORT | Clinical Summary ---
Author Author [facility] Organization [facility] Address Unknown Phone Unavailable Care Team Providers Care Italian Tutor Name Role Phone System, Provider Not In [...] 8 Active ipratropium-albuterol USE 1 VIAL 0 03/01/20 1 (DUO-NEB) 0.5-2.5 mg/mL VIA NEBULIZER 8 nebulizer Q 6 H FOR SOB OR WHEEZING Active PROAIR HFA 90 INHALE 1 PUFF 0 mcg/actuation inhaler PO Q 4 H PRN 8 WHEEZING/ SOB Active acetaminophen-codeine TK 1 T PO Q 0 03/21/20 1 (TYLENOL WITH CODEINE #3) 4-6 H PRN 8 300-30 mg per tablet SEVERE PAIN Active ibuprofen (ADVIL,MOTRIN) TK 1 T PO QID 0 03/21 600 MG tablet 8 Active Problems Not on file Social History Date Tobacco Use Types Packs/Day Years Used Current Every Day Smoker Smokeless Tobacco: Current User Drinks/Week oz/Week Comments Alcohol Use Yes Sex Assigned at Date Recorded Not on file Industry Job Start Date Occupation Not on file Not on file Not on file Travel End Travel History Travel Start No recent travel history available. Last Filed Vital Signs Not on file Plan of Treatment Health Maintenance Due Date Last Done Comments COLONOSCOPY SCREENING 2003 SHINGLES VACCINES (#1) 2003 65+ PNEUMOCOCCAL VACCINE 2018 (1 of 2 - PCV13) INFLUENZA VACCINE 03/15/2020 Results Not on fileafter 12/19/2018 Insurance Type Payer Benefit Subscriber ID Effective Phone Address Plan / Dates Group PPO AETNA AETNA PPO xxxxxxxxxx [id number] OPEN resent CHOICE Medicare MEDICARE MEDICARE xxxxxxxxxxx 2018- [place], PART A AND Present [place] Advance Directives For more information, please contact: [phone] Patient [place] Explanation Type Date Recorded Advance Directives, 03/25/2018 2:01 PM Living Will and Medical Power of Nut Former
--- OUTSIDE RECORDS SUMMARY | 2019-12-20 13:40 | XMS REPORT | Clinical Summary ---
Author Author [facility] Organization [facility] Address Unknown Phone Unavailable Care Team Providers Care Carburetor Expert Name Role Phone PCP Unavailable Allergies No Known Allergies Medications End Date Status Medication Sig Dispensed Refills Start Date Active albuterol 90 INHALE 2 12 mcg/actuation inhaler PUFFS PO Q 6 9 H PRN FOR SOB Active atenolol (TENORMIN) 50 mg TK 1 T PO QHS 2 02/12 tablet 9 Active benzonatate (TESSALON) TK 1 C PO Q 4 2 01 100 mg capsule H PRN FOR 9 COUGH Active budesonide (PULMICORT) INHALE 1 VIAL 3 01 0.5 mg/2 mL nebulizer VIA NEB BID 9 solution Active TRELEGY ELLIPTA INHALE 1 PUFF 2 100-62.5-25 mcg DsDv PO D 9 Active ipratropium-albuterol 0.5 USE 1 VIAL 0 02/12 mg-3 mg(2.5 mg base)/3 mL VIA NEBULIZER 8 Nebu Q 6 H FOR SOB OR WHEEZING Active pravastatin (PRAVACHOL) TAKE 1 T PO 3 40 mg tablet AT NIGHT 9 Active warfarin (COUMADIN) 6 mg TK 1 T PO 3 01/24 tablet ONCE QD 9 Active zolpidem (AMBIEN) 10 mg TK 1 T PO QHS 0 Tab PRN 8 Active bisacodyl (DULCOLAX) 5 mg Take 2 30 tablet 0 enteric coated tablets by 9 tabletIndications: Fall, mouth daily. initial encounter Active acetaminophen-codeine Take 1 tablet 20 tablet 0 (TYLENOL #3) 300-30 mg by mouth 9 per tabletIndications: every 4 hours Fall, initial encounter as needed for Pain. Active traMADol (ULTRAM) 50 mg Take 2 21 tablet 0 tabletIndications: Fall, tablets by 9 initial encounter mouth every 6 hours as needed for Pain. Active chlorhexidine (PERIDEX) Swish with 473 mL 0 0.12 % mouth 1/2 oz of 9 washIndications: S/P solution in tooth extraction mouth for 30 seconds and spit. Use twice daily.. 03/27/2019 Discontinued acetaminophen-codeine Take 1 tablet 20 tablet 0 (TYLENOL #3) 300-30 mg by mouth 9 per tabletIndications: every 4 hours Fall, initial encounter as needed for Pain. 03/27/2019 Discontinued amoxicillin (AMOXIL) 500 Take 1 9 capsule 0 0 mg capsuleIndications: capsule by 9 Fall, initial encounter mouth 3 times daily for 3 days. 03/27/2019 Discontinued traMADol (ULTRAM) 50 mg Take 2 21 tablet 0 tabletIndications: Fall, tablets by 9 initial encounter mouth every 6 hours as needed for Pain. 04/06/2019 bacitracin 500 unit/gram Apply to 120 g 0 0 ointmentIndications: affected area 9 Fall, initial encounter 2 times daily for 10 days. 03/30/2019 amoxicillin (AMOXIL) 500 Take 1 9 capsule 0 0 mg capsuleIndications: capsule by 9 Fall, initial encounter mouth 3 times daily for 3 days. Active Problems Problem Noted Date Facial hematoma 03/24/2019 Overview: Added automatically from request for stover [employer] [id number] Facial swelling Fall COPD (chronic obstructive pulmonary dis ease) Resolved Problems Problem Noted Date Resolved Date Facial trauma, initial encounter 03/26/201903/27 Acute foreign body of cheek 03/22/2019 03/27/2019 Overview: Added automatically from request for stover [employer] [id number] Supratherapeutic international normalized ratio (INR) 03/27/2019 Encounters Care Team Description Date Type Specialty Isabella Ferrara, GLYCERIN OPERATOR Gloria Chung, DDS Cristobal Murillo DMD S/P tooth extraction (Primary Dx); Fall, initial encounter 03/30/2019 Office Visit Oral Surgery Dony Lyn, Nba Do 03/26/2019 Anesthesia Event Lidia, Randy, DMD 1. Incision and drainage of right cheek hematoma. 2. Incision and drainage of right lower vestibule hematoma. 3. Removal of right cheek foreign body. 4. Extraction #4,7,8,9,10,11,13,20,21,22,23,24,25,26 5. Alveoloplasty x4 quadrants 03/26/2019 Surgery Cristobal MurilloJAYLENE 03/26/2019 Hospital Encounter Cristobal Murillo, DMD Facial swelling 03/23/2019 Office Visit Oral Surgery Melanie Espinosa MD Todd, Samual R, MD Fall, initial encounter (Primary Dx); Facial swelling; Abnormal INR; Acute foreign body of cheek, initial encounter 03/22/2019 Hospital - Encounter 03/27/2019 after 12/19/2018 Social History Date Tobacco Use Types Packs/Day Years Used Current Every Day Smoker Cigarettes 1.5 Smokeless Tobacco: Never Used Drinks/Week oz/Week Comments Alcohol Use Yes Sex Assigned at Date Recorded Not on file Industry Job Start Date Occupation Not on file Not on file Not on file Travel End Travel History Travel Start No recent travel history available. Last Filed Vital Signs Reading Time Taken Comments Vital Sign 127/94 03/30/2019 8:17 AM CDT Blood Pressure 55 03/30/2019 8:17 AM CDT Pulse 36.5 C (97.7 F) 03/27/2019 7:00 AM CDT Temperature 18 03/27/2019 7:00 AM CDT Respiratory Rate 97% 03/27/2019 7:00 AM CDT Oxygen Saturation - - Inhaled Oxygen Concentration 104.8 kg (231 lb) 03/23/2019 4:00 PM CDT Weight 179 cm (5' 10.47") 03/23/2019 4:00 PM CDT Height 32.7 03/23/2019 4:00 PM CDT Body Mass Index Plan of Treatment Health Maintenance Due Date Last Done Comments Colorectal Cancer Scrn 2003 Annual (FIT/FOBT) Age 50 to 75 IMM Pneumococcal Age 65 2018 and Up IMM Influenza Seasonal 05/15/2020May to October (>/= 19 yrs) Procedures Comments Procedure Name Priority Date/Time Associated Diag nosis CALCIUM, IONIZED Routine 03/27/2019 4:48 AM CDT CBC Routine 03/27/2019 4:47 AM CDT PT/INR Routine 03/27/2019 4:47 AM CDT CBC/DIFF Routine 03/27/2019 4:47 AM CDT PHOSPHORUS Routine 03/27/2019 4:47 AM CDT MAGNESIUM Routine 03/27/2019 4:47 AM CDT BASIC METABOLIC PANEL Routine 03/27/2019 4:47 AM CDT TISSUE EXAM Routine 03/26/2019 Acute foreign b jeanette of 1:30 PM CDT cheek, initial encounter INTUBATION Routine 03/26/2019 12:28 PM CDT Procedure Note - Fadumo Roper CRNA - 03/26/2019 12:28 PM CDT Intubation Urgency: elective Airway not difficult General Informatio n and Staff Patient location during procedure: OR Indicatio ns and Patient Condition Indication s for airway management : anesthesia Spontaneou s ventilatio n: present Sedation level: deep Preoxygena sandie: yes Patient position: sniffing MILS not maintained throughout Mask difficulty assessment : 3 - difficult mask (inadequat e, unstable or two providers) +/- NMBA Final Airway Details Final airway type: endotrache al airway Successful airway: ETT Successfu l intubation technique: video laryngosco py Facilitati ng devices/me thods: OPA Endotrache al tube insertion site: oral Cords visualized : grade 1 Cormack-Le hane Classifica tion: grade I - full view of glottis Placement verified by: chest auscultati on Measured from: lips ETT to lips (cm): 24 Number of attempts at approach: 1 OMXF - EXTRACTION, FULL 03/26/2019 Acute foreign body of MOUTH WITH ALVEOLOPLASTY 11:37 AM CDT cheek, initi al encounter T&S - COLLECTION Routine 03/26/2019 10:44 AM CDT TYPE AND SCREEN Routine 03/26/2019 10:44 AM CDT CBC Routine 03/26/2019 10:43 AM CDT CBC/DIFF Routine 03/26/2019 10:43 AM CDT PHOSPHORUS Routine 03/26/2019 10:43 AM CDT MAGNESIUM Routine 03/26/2019 10:43 AM CDT BASIC METABOLIC PANEL Routine 03/26/2019 10:43 AM CDT PT/INR Routine 03/25/2019 11:58 AM CDT CBC Routine 03/25/2019 4:40 AM CDT CBC/DIFF Routine 03/25/2019 4:40 AM CDT CALCIUM, IONIZED Routine 03/25/2019 4:39 AM CDT PHOSPHORUS Routine 03/25/2019 4:39 AM CDT MAGNESIUM Routine 03/25/2019 4:39 AM CDT BASIC METABOLIC PANEL Routine 03/25/2019 4:39 AM CDT BASIC METABOLIC PANEL Routine 03/24/2019 12:17 PM CDT CBC Routine 03/24/2019 4:59 AM CDT CBC/DIFF Routine 03/24/2019 4:59 AM CDT PT/INR/PTT Routine 03/24/2019 4:59 AM CDT SEQUENTIAL COMPRESSION Routine 03/24/2019 PUMP 1:55 AM CDT SEQUENTIAL COMPRESSION Routine 03/23/2019 PUMP 6:12 PM CDT PT/INR/PTT STAT 03/23/2019 3:[address] MAXILLOFACIAL W/O STAT 03/23/2019 Fall, ini tial encounter CONTRAST 12:[address] C-SPINE W/O CONTRAST STAT 03/23/2019 Fall, initial encounter 12:[address] HEAD W/O CONTRAST STAT 03/23/2019 Fall, ini tial encounter 12:19 AM CDT PLASMA PRODUCTS Timed 03/22/2019 9:45 PM CDT BMP POC Routine 03/22/2019 9:45 PM CDT T&S - COLLECTION STAT 03/22/2019 9:45 PM CDT CBC STAT 03/22/2019 9:45 PM CDT PT/INR/PTT STAT 03/22/2019 9:45 PM CDT CBC/DIFF STAT 03/22/2019 9:45 PM CDT ABO/RH CONFIRMATION STAT 03/22/2019 9:36 PM CDT TYPE AND SCREEN STAT 03/22/2019 9:36 PM CDT after 12/19/2018 Results * Calcium, Ionized (03/27/2019 4:48 AM CDT) Only the most recent of 2 results within the time period is included. Calcium, 1.08 (L) 1.15 - 1.29 mmol/L [facility]ized [facility] Specimen Blood Performing Organization Address City/State/[facility] Ph one Number [facility] [address] [place] [address] * CBC/Diff (03/27/2019 4:47 AM CDT) Only the most recent of 5 results within the time period is included. WBC 4.9 4.5 - 12.0 K/uL [facility] RBC 4.48 (L) 4.60 - 6.20 M/uL [facility] Hemoglobin 14.8 14.0 - 18.0 g/dL [facility] Hematocrit 43.7 40.0 - 54.0 % [facility] MCV 97.5 (H) 82.0 - 92.0 fL [facility] MCH 33.0 (H) 27.0 - 31.0 pg [facility] MCHC 33.9 32.0 - 36.0 g/dL [facility] RDW 50.4 (H) 35.1 - 43.9 fL [facility] Platelet 166 150 - 400 K/uL [facility] Mean Platelet 9.3 (L) 9.4 - 12.4 fL [facility] Volume [facility] Percent NRBC 0.0 % [facility] Neutrophil 86.2 (H) 34.0 - 67.9 % [facility] Lymphs 6.7 (L) 21.8 - 50.0 % [facility] Monocytes 6.5 5.3 - 12.0 % [facility] Eos 0.0 (L) 0.8 - 5.0 % [facility] Basos 0.2 0.2 - 1.2 % [facility] Immature 0.4 0.0 - 0.5 % [facility] Granulocytes LAB[facility] Neutrophils 4.26 1.78 - 5.36 K/uL [facility] (Absolute) [facility] Lymphs 0.33 (L) 1.32 - 3.57 K/uL [facility] (Absolute) [facility] Monocytes(Absol 0.32 0.30 - 0.82 K/uL [facility] [employer]) LABORATORY Eos (Absolute) 0.00 (L) 0.04 - 0.54 K/uL [facility] Baso (Absolute) 0.01 0.01 - 0.08 K/uL [facility] Immature Grans 0.02 0.00 - 0.03 K/uL [facility] (Abs) [facility] Absolute NRBC 0.00 K/uL [facility] Specimen Blood Performing Organization Address City/[facility] Ph one Number [facility] [address] [place] [address] [phone] * PT/INR (03/27/2019 4:47 AM CDT) Only the most recent of 2 results within the time period is included. PT 17.6 (H) 11.8 - 15.0 Seconds [facility] INR 1.5 Refer to INR ranges [facility] Comment: LABORATORY 2.0 - 3.0 for moderate intensity anticoagulation 2.5 - 3.5 for high intensity anticoagulation Specimen Blood Performing Organization Address City/[facility] Ph one Number [facility] [address] [place] [address] * Phosphorus (03/27/2019 4:47 AM CDT) Only the most recent of 3 results within the time period is included. Phosphorus 2.3 (L) 2.5 - 5.0 mg/dL [facility] Specimen Blood Performing Organization Address [facility] one Number [facility] [address] [place] [address] [phone] * Magnesium (03/27/2019 4:47 AM CDT) Only the most recent of 3 results within the time period is included. Magnesium 1.8 (L) 1.9 - 2.7 mg/dL [facility] Specimen Blood Performing Organization Address [facility] one Number [facility] [address] [place] [address] * Basic Metabolic Panel (03/27/2019 4:47 AM CDT) Only the most recent of 4 results within the time period is included. Sodium 134 (L) 136 - 145 mmol/L [facility] Potassium 4.0 3.5 - 5.1 mmol/L [facility] Chloride 100 98 - 107 mmol/L [facility] CO2 28 21 - 31 mmol/L [facility] Urea Nitrogen 8.0 7.0 - 25.0 mg/dL [facility] Creatinine 0.9 0.7 - 1.3 mg/dL [facility] Glucose 127 (H) 70 - 110 mg/dL [facility] Calcium 8.8 8.6 - 10.3 mg/dL [facility] GFR, Estimated 84 (L) >=90 mL/min/1.73 m2 [facility] Anion Gap 6 5 - 16 mmol/L [facility] Specimen Blood Performing Organization Address [facility] one Number [facility] [address] [place] [address] * Pathology - Tissue Exam (03/26/2019 1:30 PM CDT) Case Report Surgical Pathology [facility] Case: [id number] Authorizing Provider: Cristobal Murillo DMD Collected: 03/26/2019 01:30 PM Ordering Location: 4F OR Received: 03/26/2019 02:16 PM Pathologist: Kita Hernadez MD Specimen: Cheek, right, right cheek foreign body FINAL DIAGNOSIS CHEEK, RIGHT, FOREIGN BODY [facility] E lectronically REMOVAL: LABORATORY signed by Satya, - FOREIGN MATERIAL IDENTIFIED MD Kita on 03/27/2019 at 3:14 PM Gross Specimen Material: Right [facility] Description cheek tissue LABORATORY The case is received in one part labeled with the patient's name "ZOLTAN EASTON", medical record number and given accession number [id number], and it is accompanied by a requisition form labeled with the same name and accession number. Received in formalin labeled "RIGHT CHEEK FOREIGN BODY TISSUE" are two bill-white to ang-yellow irregular jagged pieces of foreign material measuring 0.2 and 0.8 cm in greatest dimension. No sections are submitted. The specimen is photographed. [id number] Claim Approver Microscopic Not performed. [facility] Description I have personally reviewed LABORATORY the relevant preparations for the specimen(s), reviewed and agreed with the resident/fellow's interpretation. Specimen Tissue - Cheek, right Performing Organization Address City/[facility] one Number [facility] [address] [place] [address] [phone] * Type and Screen (03/26/2019 10:44 AM CDT) Only the most recent of 2 results within the time period is included. Specimen 03/29/2019 23:59 BT BLOOD BANK Expiration ABO/RH O NEG BT BLOOD BANK Antibody Screen NEG BT BLOOD BANK Specimen Blood Performing Organization Address [facility] one Number BLOOD BANK [address] [place] [address] * PT/INR/PTT (03/24/2019 4:59 AM CDT) Only the most recent of 3 results within the time period is included. PT 34.9 (H) 11.8 - 15.0 Seconds [facility] INR 3.7 (HH) Refer to INR ranges [facility] Comment: LABORATORY 2.0 - 3.0 for moderate intensity anticoagulation 2.5 - 3.5 for high intensity anticoagulation PTT 74.0 (H) 23.6 - 36.4 Seconds [facility] Comment: LABORATORY The recommended therapuetic range is an APTT 61-103 seconds which corresponds to 0.3-0.7 anti Xa u/ml. Specimen Blood Performing Organization Address City/State/Zipcode Ph one Number [facility] [address] [place] [address] * CT C-SPINE W/O CONTRAST (03/23/2019 12:19 AM CDT) Specimen Impressions Performed At IMPRESSION: [facility] Head CT: No acute abnormality. Maxillofacial CT: 1. Extensive soft tissue edema/hematoma of the right premaxillary and premandibular soft tissues. 2. Questionable fracture of the right m axillary alveolar ridge with possible fragments of teeth within the right buccal soft tissues. Cervical Spine: 1. No acute cervical spine abnormalit ies. 2. Degenerative changes of the cervic al spine as described above. 3. Cannot adequately assess for ligam ent, spinal cord or vascular injuries. Dictated By: Owen Melendez MD, 03/23/2019 4:13 AM I have reviewed the study and agree wit h the findings in this report. Signed By: Jennyfer Rader MD, 03/23/2019 5:49 AM Narrative Performed At Exam: Head, Maxillofacial and Cervical Spine CT's wit hout contrast [facility] History: Facial trauma, fx suspected Comparison studies: Outside head, face, and cervical spine CT on 03/22/2019. Technique: Axial scans obtained from skull base to the vertex, face and cervical regions. Coronal and sagittal reconstructions ob tained from the axial data. IV Contrast: None Complications: None Radiation Dose: Total DLP: 2054 mGy*cm FINDINGS: Head CT: Scalp/Skull: No abnormalities. Brain sulci: Appropriate for patient's age. Ventricles: Normal in size and configur ation. No hydrocephalus. Extra-axial spaces: No masses or fluid collections. Parenchyma: No abnormal densities. No masses, hemorrhage or acute or chron ic cortical insults. Dural sinuses: No abnormal densities. Sellar/Suprasellar region: Intact. Skull base and Craniocervical junction: Intact . Maxillofacial CT: Soft tissues: Extensive soft tissue edema/hematoma of the right superficial and deep premaxillary and premandibular soft tis sues. Within the right buccal soft tissues are multiple hyperdense fr agments, possibly pieces of tooth, of which the largest measures ap proximately 7 mm. Teeth: Multiple missing teeth, including the m axillary and mandibular molars. The remaining teeth are carious with pe riapical lucencies, most notably at tooth #10. Bones: Subtle disruption of the right bony max illary alveolar ridge, best seen on series 11, image 172. No other visua lized fractures. Orbits: No abnormalities. Paranasal sinuses: Nonspecific, mucosal thickening of the floor of the right maxillary sinus. The remaining paranasal sinuses are clear. Cervical spine CT: Fractures: None. Craniocervical junction: Patent foramen magnum. No Chiari 1 malformation. Alignment: Straightening of the normal cervical lordosis centered around C5, likely positional. No scoliosis. No subluxations. Posterior longitudinal ligament: Not os sified. Soft tissues: No abnormalities. Vertebrae: No infection or neoplasm. . Degenerative changes: Moderate degenerative changes of the at lantodens articulation. C4-C5: Mild degenerative disc changes a t C4-C5. Moderate left foraminal narrowing due to uncovertebral arthrosi s. Posterior degenerative changes/disc osteophyte complex results in minimal spinal canal stenosis. C5-C6: Mild to moderate degenerative di sc changes with marked anterior osteophytosis. C6-C7: Mild to moderate degenerative di sc changes with marked anterior osteophytosis. Posterior disc osteophyte results in mi ld canal stenosis. Mild left foraminal stenosis due to unc overtebral arthrosis. Procedure Note Interface, Rad/Mammog In - 03/23/2019 5:54 AM CDT Exam: Head, Maxillofacial and Cervical Spine CT's without contrast History: Facial trauma, fx suspected Comparison studies: Outside head, face, and cervical spine CT on 03/22/2019. Technique: Axial scans obtained from skull base to the vertex, face and cervical regions. Coronal and sagittal reconstructions obtained from the axial data. IV Contrast: None Complications: None Radiation Dose: Total DLP: 2054 mGy*cm FINDINGS: Head CT: Scalp/Skull: No abnormalities. Brain sulci: Appropriate for patient's age. Ventricles: Normal in size and configuration. No hydrocephalus. Extra-axial spaces: No masses or fluid collections. Parenchyma: No abnormal densities. No masses, hemorrhage or acute or chronic cortical insults. Dural sinuses: No abnormal densities. Sellar/Suprasellar region: Intact. Skull base and Craniocervical junction: Intact . Maxillofacial CT: Soft tissues: Extensive soft tissue edema/hematoma of the right superficial and deep premaxillary and premandibular soft tissues. Within the right buccal soft tissues are multiple hyperdense fragments, possibly pieces of tooth, of which the largest measures approximately 7 mm. Teeth: Multiple missing teeth, including the maxillary and mandibular molars. The remaining teeth are carious with periapical lucencies, most notably at tooth #10. Bones: Subtle disruption of the right bony maxillary alveolar ridge, best seen on series 11, image 172. No other visualized fractures. Orbits: No abnormalities. Paranasal sinuses: Nonspecific, mucosal thickening of the floor of the right maxillary sinus. The remaining paranasal sinuses are clear. Cervical spine CT: Fractures: None. Craniocervical junction: Patent foramen magnum. No Chiari 1 malformation. Alignment: Straightening of the normal cervical lordosis centered around C5, likely positional. No scoliosis. No subluxations. Posterior longitudinal ligament: Not ossified. Soft tissues: No abnormalities. Vertebrae: No infection or neoplasm. . Degenerative changes: Moderate degenerative changes of the atlantodens articulation. C4-C5: Mild degenerative disc changes at C4-C5. Moderate left foraminal narrowing due to uncovertebral arthrosis. Posterior degenerative changes/disc osteophyte complex results in minimal spinal canal stenosis. C5-C6: Mild to moderate degenerative disc changes with marked anterior osteophytosis. C6-C7: Mild to moderate degenerative disc changes with marked anterior osteophytosis. Posterior disc osteophyte results in mild canal stenosis. Mild left foraminal stenosis due to uncovertebral arthrosis. IMPRESSION IMPRESSION: Head CT: No acute abnormality. Maxillofacial CT: 1. Extensive soft tissue edema/hematoma of the right premaxillary and premandibular soft tissues. 2. Questionable fracture of the right ma xillary alveolar ridge with possible fragments of teeth within the right buccal soft tissues. Cervical Spine: 1. No acute cervical spine abnormalitie s. 2. Degenerative changes of the cervical spine as described above. 3. Cannot adequately assess for ligamen t, spinal cord or vascular injuries. Dictated By: Owen Melendez MD, 03/23/2019 4:13 AM I have reviewed the study and agree with the findings in this report. Signed By: Jennyfer Rader MD, 03/23/2019 5:49 AM Performing Organization Address City/State/Zipcode Ph one Number SMS * CT MAXILLOFACIAL W/O CONTRAST (03/23/2019 12:19 AM CDT) Specimen Impressions Performed At IMPRESSION: [facility] Head CT: No acute abnormality. Maxillofacial CT: 1. Extensive soft tissue edema/hematoma of the right premaxillary and premandibular soft tissues. 2. Questionable fracture of the right m axillary alveolar ridge with possible fragments of teeth within the right buccal soft tissues. Cervical Spine: 1. No acute cervical spine abnormalit ies. 2. Degenerative changes of the cervic al spine as described above. 3. Cannot adequately assess for ligam ent, spinal cord or vascular injuries. Dictated By: Owen Melendez MD, 03/23/2019 4:13 AM I have reviewed the study and agree wit h the findings in this report. Signed By: Jennyfer Rader MD, 03/23/2019 5:49 AM Narrative Performed At Exam: Head, Maxillofacial and Cervical Spine CT's wit hout contrast [facility] History: Facial trauma, fx suspected Comparison studies: Outside head, face, and cervical spine CT on 03/22/2019. Technique: Axial scans obtained from skull base to the vertex, face and cervical regions. Coronal and sagittal reconstructions ob tained from the axial data. IV Contrast: None Complications: None Radiation Dose: Total DLP: 2054 mGy*cm FINDINGS: Head CT: Scalp/Skull: No abnormalities. Brain sulci: Appropriate for patient's age. Ventricles: Normal in size and configur ation. No hydrocephalus. Extra-axial spaces: No masses or fluid collections. Parenchyma: No abnormal densities. No masses, hemorrhage or acute or chron ic cortical insults. Dural sinuses: No abnormal densities. Sellar/Suprasellar region: Intact. Skull base and Craniocervical junction: Intact . Maxillofacial CT: Soft tissues: Extensive soft tissue edema/hematoma of the right superficial and deep premaxillary and premandibular soft tis sues. Within the right buccal soft tissues are multiple hyperdense fr agments, possibly pieces of tooth, of which the largest measures ap proximately 7 mm. Teeth: Multiple missing teeth, including the m axillary and mandibular molars. The remaining teeth are carious with pe riapical lucencies, most notably at tooth #10. Bones: Subtle disruption of the right bony max illary alveolar ridge, best seen on series 11, image 172. No other visua lized fractures. Orbits: No abnormalities. Paranasal sinuses: Nonspecific, mucosal thickening of the floor of the right maxillary sinus. The remaining paranasal sinuses are clear. Cervical spine CT: Fractures: None. Craniocervical junction: Patent foramen magnum. No Chiari 1 malformation. Alignment: Straightening of the normal cervical lordosis centered around C5, likely positional. No scoliosis. No subluxations. Posterior longitudinal ligament: Not os sified. Soft tissues: No abnormalities. Vertebrae: No infection or neoplasm. . Degenerative changes: Moderate degenerative changes of the at lantodens articulation. C4-C5: Mild degenerative disc changes a t C4-C5. Moderate left foraminal narrowing due to uncovertebral arthrosi s. Posterior degenerative changes/disc osteophyte complex results in minimal spinal canal stenosis. C5-C6: Mild to moderate degenerative di sc changes with marked anterior osteophytosis. C6-C7: Mild to moderate degenerative di sc changes with marked anterior osteophytosis. Posterior disc osteophyte results in mi ld canal stenosis. Mild left foraminal stenosis due to unc overtebral arthrosis. Procedure Note Interface, Rad/Mammog In - 03/23/2019 5:54 AM CDT Exam: Head, Maxillofacial and Cervical Spine CT's without contrast History: Facial trauma, fx suspected Comparison studies: Outside head, face, and cervical spine CT on 03/22/2019. Technique: Axial scans obtained from skull base to the vertex, face and cervical regions. Coronal and sagittal reconstructions obtained from the axial data. IV Contrast: None Complications: None Radiation Dose: Total DLP: 2054 mGy*cm FINDINGS: Head CT: Scalp/Skull: No abnormalities. Brain sulci: Appropriate for patient's age. Ventricles: Normal in size and configuration. No hydrocephalus. Extra-axial spaces: No masses or fluid collections. Parenchyma: No abnormal densities. No masses, hemorrhage or acute or chronic cortical insults. Dural sinuses: No abnormal densities. Sellar/Suprasellar region: Intact. Skull base and Craniocervical junction: Intact . Maxillofacial CT: Soft tissues: Extensive soft tissue edema/hematoma of the right superficial and deep premaxillary and premandibular soft tissues. Within the right buccal soft tissues are multiple hyperdense fragments, possibly pieces of tooth, of which the largest measures approximately 7 mm. Teeth: Multiple missing teeth, including the maxillary and mandibular molars. The remaining teeth are carious with periapical lucencies, most notably at tooth #10. Bones: Subtle disruption of the right bony maxillary alveolar ridge, best seen on series 11, image 172. No other visualized fractures. Orbits: No abnormalities. Paranasal sinuses: Nonspecific, mucosal thickening of the floor of the right maxillary sinus. The remaining paranasal sinuses are clear. Cervical spine CT: Fractures: None. Craniocervical junction: Patent foramen magnum. No Chiari 1 malformation. Alignment: Straightening of the normal cervical lordosis centered around C5, likely positional. No scoliosis. No subluxations. Posterior longitudinal ligament: Not ossified. Soft tissues: No abnormalities. Vertebrae: No infection or neoplasm. . Degenerative changes: Moderate degenerative changes of the atlantodens articulation. C4-C5: Mild degenerative disc changes at C4-C5. Moderate left foraminal narrowing due to uncovertebral arthrosis. Posterior degenerative changes/disc osteophyte complex results in minimal spinal canal stenosis. C5-C6: Mild to moderate degenerative disc changes with marked anterior osteophytosis. C6-C7: Mild to moderate degenerative disc changes with marked anterior osteophytosis. Posterior disc osteophyte results in mild canal stenosis. Mild left foraminal stenosis due to uncovertebral arthrosis. IMPRESSION IMPRESSION: Head CT: No acute abnormality. Maxillofacial CT: 1. Extensive soft tissue edema/hematoma of the right premaxillary and premandibular soft tissues. 2. Questionable fracture of the right ma xillary alveolar ridge with possible fragments of teeth within the right buccal soft tissues. Cervical Spine: 1. No acute cervical spine abnormalitie s. 2. Degenerative changes of the cervical spine as described above. 3. Cannot adequately assess for ligamen t, spinal cord or vascular injuries. Dictated By: Owen Melendez MD, 03/23/2019 4:13 AM I have reviewed the study and agree with the findings in this report. Signed By: Jennyfer Rader MD, 03/23/2019 5:49 AM Performing Organization Address City/State/Zipcode Ph one Number SMS * CT HEAD W/O CONTRAST (03/23/2019 12:19 AM CDT) Specimen Impressions Performed At IMPRESSION: [facility] Head CT: No acute abnormality. Maxillofacial CT: 1. Extensive soft tissue edema/hematoma of the right premaxillary and premandibular soft tissues. 2. Questionable fracture of the right m axillary alveolar ridge with possible fragments of teeth within the right buccal soft tissues. Cervical Spine: 1. No acute cervical spine abnormalit ies. 2. Degenerative changes of the cervic al spine as described above. 3. Cannot adequately assess for ligam ent, spinal cord or vascular injuries. Dictated By: Owen Melendez MD, 03/23/2019 4:13 AM I have reviewed the study and agree wit h the findings in this report. Signed By: Jennyfer Rader MD, 03/23/2019 5:49 AM Narrative Performed At Exam: Head, Maxillofacial and Cervical Spine CT's wit hout contrast SMS History: Facial trauma, fx suspected Comparison studies: Outside head, face, and cervical spine CT on 03/22/2019. Technique: Axial scans obtained from skull base to the vertex, face and cervical regions. Coronal and sagittal reconstructions ob tained from the axial data. IV Contrast: None Complications: None Radiation Dose: Total DLP: 2054 mGy*cm FINDINGS: Head CT: Scalp/Skull: No abnormalities. Brain sulci: Appropriate for patient's age. Ventricles: Normal in size and configur ation. No hydrocephalus. Extra-axial spaces: No masses or fluid collections. Parenchyma: No abnormal densities. No masses, hemorrhage or acute or chron ic cortical insults. Dural sinuses: No abnormal densities. Sellar/Suprasellar region: Intact. Skull base and Craniocervical junction: Intact . Maxillofacial CT: Soft tissues: Extensive soft tissue edema/hematoma of the right superficial and deep premaxillary and premandibular soft tis sues. Within the right buccal soft tissues are multiple hyperdense fr agments, possibly pieces of tooth, of which the largest measures ap proximately 7 mm. Teeth: Multiple missing teeth, including the m axillary and mandibular molars. The remaining teeth are carious with pe riapical lucencies, most notably at tooth #10. Bones: Subtle disruption of the right bony max illary alveolar ridge, best seen on series 11, image 172. No other visua lized fractures. Orbits: No abnormalities. Paranasal sinuses: Nonspecific, mucosal thickening of the floor of the right maxillary sinus. The remaining paranasal sinuses are clear. Cervical spine CT: Fractures: None. Craniocervical junction: Patent foramen magnum. No Chiari 1 malformation. Alignment: Straightening of the normal cervical lordosis centered around C5, likely positional. No scoliosis. No subluxations. Posterior longitudinal ligament: Not os sified. Soft tissues: No abnormalities. Vertebrae: No infection or neoplasm. . Degenerative changes: Moderate degenerative changes of the at lantodens articulation. C4-C5: Mild degenerative disc changes a t C4-C5. Moderate left foraminal narrowing due to uncovertebral arthrosi s. Posterior degenerative changes/disc osteophyte complex results in minimal spinal canal stenosis. C5-C6: Mild to moderate degenerative di sc changes with marked anterior osteophytosis. C6-C7: Mild to moderate degenerative di sc changes with marked anterior osteophytosis. Posterior disc osteophyte results in mi ld canal stenosis. Mild left foraminal stenosis due to unc overtebral arthrosis. Procedure Note Interface, Rad/Mammog In - 03/23/2019 5:54 AM CDT Exam: Head, Maxillofacial and Cervical Spine CT's without contrast History: Facial trauma, fx suspected Comparison studies: Outside head, face, and cervical spine CT on 03/22/2019. Technique: Axial scans obtained from skull base to the vertex, face and cervical regions. Coronal and sagittal reconstructions obtained from the axial data. IV Contrast: None Complications: None Radiation Dose: Total DLP: 2054 mGy*cm FINDINGS: Head CT: Scalp/Skull: No abnormalities. Brain sulci: Appropriate for patient's age. Ventricles: Normal in size and configuration. No hydrocephalus. Extra-axial spaces: No masses or fluid collections. Parenchyma: No abnormal densities. No masses, hemorrhage or acute or chronic cortical insults. Dural sinuses: No abnormal densities. Sellar/Suprasellar region: Intact. Skull base and Craniocervical junction: Intact . Maxillofacial CT: Soft tissues: Extensive soft tissue edema/hematoma of the right superficial and deep premaxillary and premandibular soft tissues. Within the right buccal soft tissues are multiple hyperdense fragments, possibly pieces of tooth, of which the largest measures approximately 7 mm. Teeth: Multiple missing teeth, including the maxillary and mandibular molars. The remaining teeth are carious with periapical lucencies, most notably at tooth #10. Bones: Subtle disruption of the right bony maxillary alveolar ridge, best seen on series 11, image 172. No other visualized fractures. Orbits: No abnormalities. Paranasal sinuses: Nonspecific, mucosal thickening of the floor of the right maxillary sinus. The remaining paranasal sinuses are clear. Cervical spine CT: Fractures: None. Craniocervical junction: Patent foramen magnum. No Chiari 1 malformation. Alignment: Straightening of the normal cervical lordosis centered around C5, likely positional. No scoliosis. No subluxations. Posterior longitudinal ligament: Not ossified. Soft tissues: No abnormalities. Vertebrae: No infection or neoplasm. . Degenerative changes: Moderate degenerative changes of the atlantodens articulation. C4-C5: Mild degenerative disc changes at C4-C5. Moderate left foraminal narrowing due to uncovertebral arthrosis. Posterior degenerative changes/disc osteophyte complex results in minimal spinal canal stenosis. C5-C6: Mild to moderate degenerative disc changes with marked anterior osteophytosis. C6-C7: Mild to moderate degenerative disc changes with marked anterior osteophytosis. Posterior disc osteophyte results in mild canal stenosis. Mild left foraminal stenosis due to uncovertebral arthrosis. IMPRESSION IMPRESSION: Head CT: No acute abnormality. Maxillofacial CT: 1. Extensive soft tissue edema/hematoma of the right premaxillary and premandibular soft tissues. 2. Questionable fracture of the right ma xillary alveolar ridge with possible fragments of teeth within the right buccal soft tissues. Cervical Spine: 1. No acute cervical spine abnormalitie s. 2. Degenerative changes of the cervical spine as described above. 3. Cannot adequately assess for ligamen t, spinal cord or vascular injuries. Dictated By: Owen Melendez MD, 03/23/2019 4:13 AM I have reviewed the study and agree with the findings in this report. Signed By: Jennyfer Rader MD, 03/23/2019 5:49 AM Performing Organization Address City/State/Zipcode Ph one Number SMS * POCT BMP POC docked device (03/22/2019 9:45 PM CDT) Sodium POC 139 136 - 145 mmol/L [facility] Potassium POC 3.9 3.5 - 5.1 mmol/L [facility] Chloride POC 100 98 - 107 mmol/L [facility] TCO2 POC 27 21 - 32 mmol/L [facility] Urea Nitrogen 11 7 - 18 mg/dL [facility] Creatinine POC 1.1 0.6 - 1.3 mg/dL [facility] Glucose POC 104 74 - 106 mg/dL [facility] Ionized Calcium 1.10 (L) 1.15 - 1.29 mmol/L [facility] eGFR If Africn 80 (L) >=90 mL/min/1.73 m2 [facility] GFR, Estimated 70 (L) >=90 mL/min/1.73 m2 [facility] Hemoglobin POC 18.0 (H) 12 - 16 g/dL [facility] Hematocrit POC 53.0 (H) 37.0 - 47.0 % [facility] Specimen Blood, venous Performing Organization Address [facility] Ph one Number [facility] [address] [place] [address] * 2 Units (03/22/2019 9:45 PM CDT) Apheresis not required [facility] Plasma Unit ABO Type O [facility] Unit Rh Type POS [facility] B[facility] Product Code E2284 [facility] Unit Number [id number] [facility] Unit Status released [facility] B[facility] ISBT Product [id number] [facility] Code Blood Type 5100 [facility] Blood [id number] [facility] Expiration Date Specimen Blood Performing Organization Address [facility] one Number [facility] [address] [place] [address] * ABO/RH CONFIRMATION (03/22/2019 9:36 PM CDT) ABO/RH O NEG [facility] Specimen Blood Performing Organization Address [facility] one Number [facility] [address] [place] [address] after 12/19/2018 Insurance Type Payer Benefit Subscriber ID Effective Phone Address Plan / Dates Group HUMANA MEDICARE HMO HUMANA HMO xxxxxxxxx 2018-P [phone] [address] [address] [place] [address] Advance Directives Date Inactivated Comments Code Status Date Activated 03/27/2019 1:34 PM Full Code 03/23/2019 6:12 PM
[2019-12-20] MEDS ORDERED: MORPHINE SULFATE INJ 4 MG/ML INJ 1ML IM PRN (14:30)
[2019-12-20] MEDS ORDERED: MORPHINE SULFATE INJ 4 MG/ML INJ 1ML ONE (14:40)
== END 2019-12-20 14:41 | disposition home or self-care (01) ==
LOC: ER 13:34
DX: M25.572 Pain in left ankle and joints of left foot (principal); L03.116 Cellulitis of left lower limb; I83.12 Varicose veins of left lower extremity with inflammation
CPT/HCPCS: 99282; J2270

== ENCOUNTER → 2020-01-24 | Day surgery (SDC) | payer MEDICARE, OTHER ==
[2020-01-18 10:26] LABS: BASOPHILS # (AUTO) 0.1 (0.0-0.1); BASOPHILS % 1.6 % (0.0-1.0); EOSINOPHILS # (AUTO) 0.2 (0.0-0.4); EOSINOPHILS % 4.3 % (0.0-6.0); HEMATOCRIT 46.4 % (38.2-49.6); HEMOGLOBIN 15.8 g/dL (14.0-18.0); LYMPHOCYTES % 26.1 % (18.0-39.1); MEAN CORPUSCULAR HEMOGLOBIN 32.2 pg (28-32); MEAN CORPUSCULAR HGB CONC 34.1 g/dL (31-35); MEAN CORPUSCULAR VOLUME 94.5 fL (81-99); MONOCYTES # (AUTO) 0.3 (0.2-0.8); MONOCYTES % 7.8 % (4.4-11.3); NEUTROPHILS # (AUTO) 2.2 (2.1-6.9); NEUTROPHILS % 59.9 % (38.7-80.0); PLATELET COUNT 136 x10e3/uL (140-360); RED BLOOD COUNT 4.91 x10e6/uL (4.3-5.7); RED CELL DISTRIBUTION WIDTH 13.9 % (11.7-14.4)
[2020-01-18 10:42] LABS: ALBUMIN 3.3 g/dL (3.5-5.0); ALBUMIN/GLOBULIN RATIO 1.3 (0.8-2.0); ANION GAP 12.3 mmol/L (8-16); CALCIUM 8.9 mg/dL (8.4-10.2); CREATININE, SERUM 1.22 mg/dL (0.72-1.25); POTASSIUM 4.3 mmol/L (3.5-5.1)
[2020-01-18 11:13] LABS: INR 0.94; PROTHROMBIN TIME 13.1 seconds (11.9-14.5)
[~2020-01-24] VITALS: Ht 182.9 cm; Wt 92.1 kg
[~2020-01-24] MED LIST changes: +FENTANYL CITRATE/PF 100MCG/2 ML INJ ONE; +HEPARIN SOD/SOD CHLORIDE 2,000 ML ONE; +IOPAMIDOL 300MG/ML 100 ML INFUS..BTL IV ONE; +LIDOCAINE HCL 2% LOCAL 20 ML VIAL ONE; +MIDAZOLAM HCL 2 MG/2 ML VIAL ONE; +SODIUM CHLORIDE 0.9% 1000ML 1,000 ML ONE; +VITAMIN D PO; +ZOLPIDEM TARTRAT5 MG PO
--- NOTE | 2020-01-24 15:14 | Operative Report ---
DATE OF PROCEDURE: SURGEON: Dante Woodward DO PROCEDURES PERFORMED: 1. Conscious sedation, 30 minutes. 2. Abdominal aortography. 3. Catheter placement in aorta. 4. Bilateral lower extremity angiography. 5. Third order peripheral angiography of the left lower extremity. PREPROCEDURE DIAGNOSIS: Peripheral arterial disease. POSTPROCEDURE DIAGNOSIS: Peripheral arterial disease. ESTIMATED BLOOD LOSS: Less than 10 mL. SPECIMENS REMOVED: None. PROCEDURE IN DETAIL: After informed consent was obtained, the patient was brought to the cardiac catheterization laboratory in a fasting and nonsedated state. Bilateral groins were prepped in usual sterile fashion. A 2% lidocaine was infiltrated over the right anterior groin for local anesthesia. Using micropuncture needle, the right common femoral artery was accessed via modified Seldinger technique and a 6-Cameroonian sheath was placed. Next, an Omni Flush catheter was used to perform an abdominal aorta and left lower extremity peripheral angiography in the third order position. No intervention was required. The right lower extremity angiography was then performed. The patient tolerated the procedure well, no immediate complications and transferred back to his room in stable condition. The patient received fentanyl and midazolam by dental laboratory manager nurse in neurologic and physiologic status, was monitored by myself and the dental laboratory manager staff for 30 minutes. A closure device was used for the right arteriotomy site closure with a Mynx device. The patient tolerated the procedure well. No immediate complications. He was transferred back to his room in stable condition. PROCEDURE FINDINGS: The abdominal aorta, bilateral iliac, and bilateral femoral and popliteal systems are patent. The left lower extremity runoff vessels showed a patent anterior tibial artery. The tibioperoneal trunk, peroneal, and posterior tibial arteries are chronically occluded from their proximal to distal locations. The anterior tibial artery fills the distal plantar arch and peroneal and posterior tibial arteries via collaterals. There is 3-vessel runoff on the right lower extremity. IMPRESSION: Peripheral arterial disease. RECOMMENDATIONS: Continue local wound care. Dante Woodward DO BM/MODL /[id number]
--- NOTE | 2020-02-21 11:46 | Operative Report ---
DATE OF PROCEDURE: SURGEON: Dante Woodward DO ADDENDUM: Ultrasound guidance was used for arterial access. DO JORDIN Vargas/MODL /[id number]
== END | disposition home or self-care (01) ==
LOC: CATH LAB 10:15
PROVIDERS: ATTEND Internal Medicine Cardiovascular Disease
DX: I73.9 Peripheral vascular disease, unspecified (principal); I87.2 Venous insufficiency (chronic) (peripheral); J44.9 Chronic obstructive pulmonary disease, unspecified; Z01.812 Encounter for preprocedural laboratory examination; Z11.59 Encounter for screening for other viral diseases; Z79.01 Long term (current) use of anticoagulants; Z82.49 Family history of ischemic heart disease and other diseases of the circulatory system
CPT/HCPCS: 36200; 36415; 75625; 75716; 76937; 80053; 85025; 85610; 87635; C1760; C1769 ×2; C1887; J2001; J2250; J3010; J7030; Q9967; 36247; 99152; 99153; U0002

== ENCOUNTER 2020-04-26 19:52 | Emergency (ER) | payer MEDICARE, OTHER ==
[~2020-04-26] VITALS: Ht 190.5 cm; Wt 92.1 kg
[~2020-04-26 19:52] MED LIST changes: -FENTANYL CITRATE/PF 100MCG/2 ML INJ ONE; -HEPARIN SOD/SOD CHLORIDE 2,000 ML ONE; -IOPAMIDOL 300MG/ML 100 ML INFUS..BTL IV ONE; -LIDOCAINE HCL 2% LOCAL 20 ML VIAL ONE; -MIDAZOLAM HCL 2 MG/2 ML VIAL ONE; -SODIUM CHLORIDE 0.9% 1000ML 1,000 ML ONE
--- OUTSIDE RECORDS SUMMARY | 2020-04-26 20:09 | XMS REPORT | Clinical Summary ---
Author Author [facility] Address Unknown Phone Unavailable Care Team Providers Care Piece Presser Name Role Phone System, Provider Not In [facility]ER-C PCP Unavailabl e Allergies No Known Allergies Medications End Date [...] (1 of 2 - PCV13) INFLUENZA VACCINE 05/15/2020 Results Not on fileafter 04/26/2019 Insurance Type Payer Benefit Subscriber ID Effective Phone Address Plan / Dates Group PPO AETNA AETNA PPO xxxxxxxxxx 2007-P OPEN resent CHOICE Medicare MEDICARE MEDICARE xxxxxxxxxxx 2018- [place], PART A AND Present [place] Guarantor Name Account Relation to Date of Phone Billin g Address Type Patient Zoltan Anderson Personal/F Self 1955 [address] [facility] [address] [facility] (Home) [place] [address] Advance Directives For more information, please contact: [phone] Patient Transistor Tester Explanation Type Date Recorded Advance Directives, 03/25/2018 2:01 PM Living Will and Medical Power of Flat Sorter Processor
--- OUTSIDE RECORDS SUMMARY | 2020-04-26 20:09 | XMS REPORT | Clinical Summary ---
Author Author [facility] Organization [facility] Address Unknown Phone Unavailable Care Team Providers Care Budget And Policy Analyst Name Role Phone PCP Unavailable Allergies No [...] 30 seconds and spit. Use twice daily.. Active Problems Problem Noted Date Facial hematoma 03/24/2019 Overview: Added automatically from request for ck hankins [id number] Facial swelling Fall COPD (chronic obstructive pulmonary dis ease) Social History Date Tobacco Use Types Packs/Day [...] Seasonal 05/15/2020May to October (>/= 19 yrs) Results Not on fileafter 04/26/2019 Insurance Type Payer Benefit Subscriber ID Effective Phone Address Plan / Dates Group HUMANA MEDICARE HMO HUMANA HMO xxxxxxxxx 2018-P [phone] [address] [address] [place] [address] Advance Directives Date Inactivated Comments Code Status Date Activated 03/27/2019 1:34 PM Full Code 03/23/2019 6:12 PM
--- OUTSIDE RECORDS SUMMARY | 2020-04-26 20:10 | XMS REPORT | Continuity of Care Document ---
Author Author [facility] t Organization [facility] Address [address] [place] [address] Phone Unavailable Care Team Providers Care Auto Driver Name Role Phone MD JULIA VARGAS MD PCP Bernardino NICHOLSON Attphys Unavailable HERBERT GARCIA Attphys Unavailable HERBERT GARCIA Admphys Unavailable Payers Payer Name Policy Type Policy Number Effective Date Expiration Date S ilene Medicare A & B NA 2018 00:00:00 [facility] A[employer] Hmo NA 2007 00:00:00 [facility] Problems Condition Name Condition Details Condition Category Status Onset Date Resolution Date Last Treatment Date Treating Clinician Comments Source Facial hematoma Facial hematoma Disease Active 2019-03-24 00:00:00 Overview: Added automatically from request for surgery [id number] [facility] Aortic valve disorder Aortic valve disease Problem Active [facility] Hematuria due to acute cystitis Hematuria due to acute cystitis Pro blem Active [facility] Hematoma of right chest wall Hematoma of right chest wall Problem Active [facility]-induced coagulopathy Warfarin-induced coagulopathy Problem Active [facility] Facial swelling Facial swelling Disease Active [facility] Fall Fall Disease Active [facility] alth COPD (chronic obstructive pulmonary disease) COPD (chr onic obstructive pulmonary disease) Disease Active [facility] Allergies, Adverse Reactions, Alerts Allergy Name Allergy Type Status Severity Reaction(s) Onset Date Inacti ve Date Treating Clinician Comments Source No Known Allergies DA Active U 2019-03-22 00:00:00 [facility] No Known Allergies DA Active U 2018-12-29 00:00:00 [facility] No Known Allergies DA Active U 2018-03-29 00:00:00 [facility] Social History Social Habit Start Date Stop Date Quantity Comments Source History of tobacco use Cigarette Smoker [facility] Sex Assigned At [facility] Cigarettes smoked current (pack per day) - Reported 00:00:00 2019-03-30 00:00:00 [facility] Alcohol intake 2019-03-30 00:00:00 2019-03-30 00:00:00 Current drinker of alcohol (finding) [facility] Smoking Status Start Date Stop Date Source Current every day smoker 2019-03-30 00:00:00 [facility] Medications Ordered Medication Name Filled Medication Name Start Date Stop Da te Current Medication? Ordering Clinician Indication Dosage Frequency Signature (SIG) Comments Components Source chlorhexidine (PERIDEX) 0.12 % mouth wash 2019-03-30 00:00:0 0 Yes S/P tooth extraction Swish with 1/2 oz of solution in mouth for 30 seconds and spit. Use twice daily.. [facility] bisacodyl (DULCOLAX) 5 mg enteric coated tablet 2019-03-28 0 0:00:00 Yes Fall, initial encounter 10mg QD Take 2 tablets by mouth daily. [facility] acetaminophen-codeine (TYLENOL #3) 300-30 mg per tablet 2019-03-27 00:00:00 Yes Fall, initial encounter 1{tbl} Take 1 tablet by mouth every 4 hours as needed for Pain. [facility] traMADol (ULTRAM) 50 mg tablet 2019-03-27 00:00:00 Yes Fall, initial encounter 100mg Take 2 tablets by mouth every 6 hours as needed for Pain. [facility] atenolol (TENORMIN) 50 mg tablet 2019-02-22 00:00:00 Yes TK 1 T PO QHS [facility] pravastatin (PRAVACHOL) 40 mg tablet 2019-02-22 00:00:00 Ye s TAKE 1 T PO AT NIGHT [facility] warfarin (COUMADIN) 6 mg tablet 2019-01-24 00:00:00 Yes TK 1 T PO ONCE QD [facility] albuterol 90 mcg/actuation inhaler 2019-01-04 00:00:00 Yes INHALE 2 PUFFS PO Q 6 H PRN FOR SOB [facility] benzonatate (TESSALON) 100 mg capsule 2019-01-04 00:00:00 Y es TK 1 C PO Q 4 H PRN FOR COUGH [facility] budesonide (PULMICORT) 0.5 mg/2 mL nebulizer solution 2019-01-04 00:00:00 Yes INHALE 1 VIAL VIA NEB BID [facility] TRELEGY ELLIPTA 100-62.5-25 mcg DsDv 2019-01-04 00:00:00 Ye s INHALE 1 PUFF PO D [facility] Amlodipine Besylate (Norvasc) 10 Mg TAB Amlodipine Besylate (Norvasc) 10 Mg TAB 2018-06-12 09:10:00 2019-10-27 00:00:00 No 10 Daily [facility] Enoxaparin (Lovenox) 120 Mg/0.8 Ml INJ Enoxaparin (Lovenox) 120 Mg/0.8 Ml INJ 2018-06-12 09:10:00 2019-10-27 00:00:00 No 120 Every 12 Hours [facility] acetaminophen-codeine (TYLENOL WITH CODEINE #3) 300-30 mg pe r tablet 2018-03-21 00:00:00 Yes TK 1 T PO Q 4-6 H PRN SEVERE PAIN Juan Carlos Arita ibuprofen (ADVIL,MOTRIN) 600 MG tablet 2018-03-21 00:00:00 Yes TK 1 T PO QID Juan Carlos Arita warfarin (COUMADIN) 4 MG tablet 2018-03-15 00:00:00 Yes Juan Carlos Arita zolpidem (AMBIEN) 10 mg tablet 2018-03-13 00:00:00 Yes TK 1 T PO QHS PRN Juan Carlos Arita BYSTOLIC 5 mg tablet 2018-03-13 00:00:00 Yes TK 1 T PO QD Juan Carlos Arita zolpidem (AMBIEN) 10 mg Tab 2018-03-13 00:00:00 Yes TK 1 T PO QHS PRN [facility] pravastatin (PRAVACHOL) 40 MG tablet 2018-03-01 00:00:00 Ye s TK 1 T PO QD Juan Carlos Arita ipratropium-albuterol (DUO-NEB) 0.5-2.5 mg/mL nebulizer 2018-03-01 00:00:00 Yes USE 1 VIAL VIA NEBULIZER Q 6 H FOR SOB O R WHEEZING Juan Carlos Arita ipratropium-albuterol 0.5 mg-3 mg(2.5 mg base)/3 mL Nebu 2018-03-01 00:00:00 Yes USE 1 VIAL VIA NEBULIZER Q 6 H F OR SOB OR WHEEZING [facility] PROAIR HFA 90 mcg/actuation inhaler 2018-02-09 00:00:00 Yes INHALE 1 PUFF PO Q 4 H PRN WHEEZING/ SOB Juan Carlos Arita Atenolol Atenolol Yes 50 Bedtime [facility] Pravastatin Sodium Pravastatin Sodium Yes 40 Be dtime [facility] Warfarin Sodium Warfarin Sodium Yes 3 Daily [facility] Warfarin Sodium Warfarin Sodium 2019-10-29 00:00:00 No 6 Daily [facility] Nebivolol Hcl (Bystolic) 5 Mg TABLET Nebivolol Hcl (Bystolic) 5 Mg TABLET 2019-10-27 00:00:00 No 5 Daily [facility] Amlodipine Amlodipine 2018-06-06 00:00:00 No Maryuri ly [facility] Warfarin Sodium Warfarin Sodium 2018-06-06 00:00:00 No 6 Daily [facility] Warfarin Sodium Warfarin Sodium 2018-06-06 00:00:00 No 2 Daily [facility] Vital Signs Vital Name Observation Time Observation Value Comments Source Weight 2019-12-20 14:19:00 204 [lb_av] [facility] BMI (Body Mass Index) 2019-12-20 14:19:00 25.5 kg/m2 [facility] Body Temperature 2019-10-29 16:00:00 97.7 [degF] [facility] Procedures Procedure Date / Time Performed Performing Clinician [facility] e Computed tomography of chest with contrast 2019-10-27 00:00:00 EDITH ISBELL [facility] Computed tomography of abdomen and pelvis with contrast 2019 00:00:00 EDITH NICHOLSON [facility] TRANSFUSE NONAUT FROZEN PLASMA IN PERIPH VEIN, PERC 2019-10-27 0 0:00:00 [facility] Plan of Care Planned Activity Planned Date Details Comments Source [facility] Scheduled Test 2020-05-15 00:00:00 INFLUENZA VACCINE [code = INFLUENZA VACCINE] [facility] Scheduled Test 2020-05-15 00:00:00 IMM Influenza Seas onal May to October (>/= 19 yrs) [code = IMM Influenza Seasonal May to October (>/= 19 yrs)] [facility] Scheduled Test 2018 00:00:00 65+ PNEUMOCOCCAL V ACCINE (1 of 2 - PCV13) [code = 65+ PNEUMOCOCCAL VACCINE (1 of 2 - PCV13)] [facility] Scheduled Test 2018 00:00:00 IMM Pneumococcal A ge 65 and Up [code = IMM Pneumococcal Age 65 and Up] [facility] Scheduled Test 2003 00:00:00 COLONOSCOPY SCREEN ING [code = COLONOSCOPY SCREENING] [facility] Scheduled Test 2003 00:00:00 SHINGLES VACCINES (#1) [code = SHINGLES VACCINES (#1)] [facility] Scheduled Test 2003 00:00:00 Screening for travis gnant neoplasm of colon (procedure) [code = 781567782] [facility] Instructions Dermatitis (Contact) [facility] Instructions Venous Insufficiency [facility] Encounters Start Date/Time End Date/Time Encounter Type Admission Type Att[facility] Care Department Encounter ID Source 2019-03-26 00:00:00 Inpatient [facility] [id number] [facility] 2019-03-26 00:00:00 Inpatient [facility] [id number] [facility] 2019-12-20 13:34:00 2019-12-20 14:41:00 Departed Emergency Room [facility] [id number] [facility] 2019-10-27 18:16:00 2019-10-29 18:38:00 Discharged Inpatient 1 EDITH NICHOLSON [facility] [id number] [facility] 2019-04-10 00:00:00 2019-04-10 00:00:00 Outpatient [facility] [id number] [facility] 2019-04-06 00:00:00 2019-04-06 00:00:00 Outpatient [facility] [id number] [facility] 2019-03-30 08:16:50 2019-03-30 08:16:50 Outpatient [facility] [id number] [facility] 2019-03-30 00:00:00 2019-03-30 00:00:00 Outpatient [facility] [id number] [facility] 2019-03-24 00:00:00 2019-03-24 00:00:00 Outpatient [facility] [id number] [facility] 2019-03-23 14:59:52 2019-03-23 14:59:52 Outpatient [facility] [id number] [facility] 2019-03-23 00:06:50 2019-03-23 00:06:50 Emergency [facility] [id number] [facility] 2019-03-22 23:10:55 2019-03-22 23:10:55 Emergency [facility] [id number] [facility] 2019-03-22 21:46:42 2019-03-22 21:46:42 Emergency [facility] [id number] [facility] 2019-03-22 21:35:42 2019-03-22 21:35:42 Inpatient [facility] [id number] [facility] 2018-12-25 10:47:00 2018-12-25 10:47:00 Registered Emergency Room [facility] [id number] [facility] 2018-06-07 16:51:00 2018-06-12 10:55:00 Discharged Inpatient 1 HERBERT GARCIA [facility] [id number] [facility] Results Test Description Test Time Test Comments Results Result Comments Source - CTA ABD AORTA IF LWEX RO 2020-01-10 15:26:00 Name: NANCY EASTON [facility] : 1955 Age/S: 64 / M [address] [facility] Unit #: [id number] Loc: [place] [address] Phys: Dante Woodward DO Acct: [id number] Dis Date: Status: REG CLI PHONE #: [phone] Exam Date: 01/10/2020 1047 FAX #: [phone] Reason: . EXAMS: CPT CODE: [id number] [place] [id number] REASON FOR EXAM: Peripheral vascular disease EXAM ORDER DATE: 01/10/2020 9:29 AM Ordering: Dante Woodward DO Attending:Dante Woodward DO Location[facility] PROCEDURE: - CTA ABD AORTA IF LWEX RO COMPARISON: FINDINGS: Axial images of the abdomen and lower extremities runoff were obtained with IV contrast using CT angiogram protocol. Reconstructed sagittal and coronal images from the axial data were provided. Dose modulation, iterative reconstruction, and/or weight based adjustment of the MA/KV was utilized to reduce the radiation dose to as low as reasonably achievable. Maximum intensity pixel, Volume rendered, Surface shaded rendering, and 3D reconstructed images of the abdominal aorta and lower extremities runoff were provided for interpretation. Intrave nous contrast: 100c of Omnipaque 370 IMPRESSION: 1. Diffuse atherosclerotic disease of the abdominal aorta most pronounced in the distal segment. Moderate stenosis (80%) in the distal right common iliac artery. Minimal disease of the proximal left common iliac artery (25%) 2. Unremarkable bilateral common femoral, superficial femoral, and right popliteal arteries. The left popliteal artery is difficult to assess secondary to beam hardening artifact from the left knee prosthesis 3. Right lower extremity: 2 vessels runoff in the anterior and posterior tibial arteries. Patent dorsalis pedis artery and plantar artery Left lower extremity: Single vessel runoff in the anterior tibial artery to the left foot with a patent dorsalis pedis artery. The posterior tibial artery is occluded near the origin at 1526 Reported and signed by: Deacon Holley M.D. PAGE 1 Signed Report (CONTINUED) Name: NANCY EASTON [facility] : 1955 Age/S: 64 / M [address] [facility] Unit #: [id number] Loc: [place] [address] Phys: Dante Woodward DO Acct: [id number] Dis Date: Status: REG CLI PHONE #: [phone] Exam Date: 01/10/2020 1047 FAX #: [phone] Reason: . EXAMS: CPT CODE: [id number] [place] [id number] <Continued> CC: Dante Woodward DO; Kwan Acosta Technologist:Jose Alberto Mcduffie RT(R),(MR),(CT) CTDI: DLP: Trnscb Date/Time: 01/10/2020 (152) t.SDR.VTL Orig Print D/T: S: 01/10/2020 (6304) PAGE 2 Signed Report CREATININE W ESTIMATED GFR 2020-01-10 09:13:00 Test Item BEDSIDE CREATININE (test code = CREATBED) mg/dL 0.7-1.3 N GLOMERULAR FILTRATION RATE POC (test code = GFRBED) 59 >6 0 CREATININE W ESTIMATED [id number] 09:13:00* Test Item Value Reference Range Interpretation Comments BEDSIDE CREATININE (test code = CREATBED) 1.22 mg/dL 0.7-1.3 N GLOMERULAR FILTRATION RATE POC (test code = GFRBED) > 60 >6 0 H Previously reported result: 59 Edited by: ERIK on 01/10/20:17099101/10/20 0913: GFRBED previously reported as: 59 Prothrombin [id number] 06:12:00* Test Item Value Reference Range Interpretation Comments Prothrombin Time (test code = 5902-2) 28.3 11.9-14.5 H [facility] International Ratio 2019-10-29 06:12:00* Test Item Value Reference Range Interpretation Comments Prothromb Time International Ratio (test code = 6301-6) 2.44 Oral Anticoagulant Therapy INR Values:1. Low Intensity Therapy 1.5 - 2.02 . Moderate Intensity Therapy 2.0 - 3.03. High Intensity Therapy(1) 2.5 - 3. 54. High Intensity Therapy(2) 3.0 - 4.05. Panic Value INR > 5.0 [facility] [id number] 06:11:00* Test Item Value Reference Range Interpretation Comments Sodium Level (test code = 2951-2) 136 136-145 [facility]assium [id number] 06:11:00* Test Item Value Reference Range Interpretation Comments Potassium Level (test code = 2823-3) 4.3 3.5-5.1 [facility] PasoChloride [id number] 06:11:00* Test Item Value Reference Range Interpretation Comments Chloride Level (test code = 2075-0) 103 98-107 [facility] PasoCarbon Dioxide [id number] 06:11:00* Test Item Value Reference Range Interpretation Comments Carbon Dioxide Level (test code = 2028-9) 31 22-29 H [facility] PasoAnion [id number] 06:11:00* Test Item Value Reference Range Interpretation Comments Anion Gap (test code = 76418-5) 6.3 8-16 L [facility] PasoBlood Urea [id number] 06:11:00* Test Item Value Reference Range Interpretation Comments Blood Urea Nitrogen (test code = 3094-0) 5 7-26 L [facility] PasoCreatinine2020-03-16 06:11:00* Test Item Value Reference Range Interpretation Comments Creatinine (test code = 2160-0) 0.81 0.72-1.25 [facility] PasoBUN/Creatinine Mfbbi9599-80-49 06:11:00* Test Item Value Reference Range Interpretation Comments BUN/Creatinine Ratio (test code = 3097-3) 6 6-25 [facility] PasoEstimat Glomerular Filtration Rate 2019-10-29 06:11:00* Test Item Value Reference Range Interpretation Comments Estimat Glomerular Filtration Rate (test code = 822937311) > 60 >60 Ranges were taken from the National Kidney Disease Education Program and the [facility] Kid[facility] Foundation literature.Reference ranges:60 or greater: Hqwrwl91-01 ( for 3 consecutive months): Chronic kidney disease 15 or less: Kidney failureUniversity Medical Center of El PasoGlucose Miuec8456-93-18 06:11:00* Test Item Value Reference Range Interpretation Comments Glucose Level (test code = NCA0954) 90 74-118 [facility] PasoCalcium [id number] 06:11:00* Test Item Value Reference Range Interpretation Comments Calcium Level (test code = 46390-2) 8.4 8.4-10.2 [facility] PasoTotal Pqimqtozb1089-55-67 06:11:00* Test Item Value Reference Range Interpretation Comments Total Bilirubin (test code = 1975-2) 1.1 0.2-1.2 [facility] PasoAspartate Amino Transf (AST/SGOT) 2019-10-29 06:11:00* Test Item Value Reference Range Interpretation Comments Aspartate Amino Transf (AST/SGOT) (test code = Aspartate Amino Transf (AST/SGOT)) 19 5-34 [facility] PasoAlanine Aminotransferase (ALT/SGPT) 2019-10-29 06:11:00* Test Item Value Reference Range Interpretation Comments Alanine Aminotransferase (ALT/SGPT) (test code = 1742-6) 9 0-55 [facility] PasoTotal [id number] 06:11:00* Test Item Value Reference Range Interpretation Comments Total Protein (test code = 2885-2) 5.0 6.5-8.1 L [facility] PasoAlbumin2020-03-16 06:11:00* Test Item Value Reference Range Interpretation Comments Albumin (test code = 1751-7) 2.7 3.5-5.0 L [facility] PasoGlobulin2020-03-16 06:11:00* Test Item Value Reference Range Interpretation Comments Globulin (test code = 55085-0) 2.3 2.3-3.5 [facility] PasoAlbumin/Globulin [id number] 06:11:00 * Test Item Value Reference Range Interpretation Comments Albumin/Globulin Ratio (test code = 1759-0) 1.2 0.8-2.0 [facility] PasoAlkaline Kdfektswemf1867-60-64 06:11:00* Test Item Value Reference Range Interpretation Comments Alkaline Phosphatase (test code = 6768-6) 83 40-150 [facility] PasoWhite Blood Lpapj0183-04-03 05:49:00* Test Item Value Reference Range Interpretation Comments White Blood Count (test code = 6690-2) 3.65 4.8-10.8 L [facility] PasoRed Blood Pobzr0058-07-58 05:49:00* Test Item Value Reference Range Interpretation Comments Red Blood Count (test code = 789-8) 3.56 4.3-5.7 L [facility] PasoHemoglobin2020-03-16 05:49:00* Test Item Value Reference Range Interpretation Comments Hemoglobin (test code = 89066-1) 11.6 14.0-18.0 L [facility] PasoHematocrit2020-03-16 05:49:00* Test Item Value Reference Range Interpretation Comments Hematocrit (test code = 4544-3) 35.5 38.2-49.6 L [facility] PasoMean Corpuscular Kmozmh2584-19-66 05:49:00* Test Item Value Reference Range Interpretation Comments Mean Corpuscular Volume (test code = 787-2) 99.7 81-99 H [facility] PasoMean Corpuscular Thlewbljhk3632-30-45 05:49:00* Test Item Value Reference Range Interpretation Comments Mean Corpuscular Hemoglobin (test code = 785-6) 32.6 28-32 H [facility] PasoMean Corpuscular Hemoglobin Concent 2019-10-29 05:49:00* Test Item Value Reference Range Interpretation Comments Mean Corpuscular Hemoglobin Concent (test code = 786-4) 32.7 31-35 [facility] PasoRed Cell Distribution [id number] 05:49:00* Test Item Value Reference Range Interpretation Comments Red Cell Distribution Width (test code = 23780-9) 15.0 11.7 -14.4 H [facility] PasoPlatelet Ogqsu2252-95-40 05:49:00* Test Item Value Reference Range Interpretation Comments Platelet Count (test code = 777-3) 133 140-360 L [facility] PasoNeutrophils (%) (Auto)2019-10-29 05:49:00 * Test Item Value Reference Range Interpretation Comments Neutrophils (%) (Auto) (test code = 62297-4) 65.7 38.7-80.0 [facility] PasoLymphocytes (%) (Auto)2019-10-29 05:49:00 * Test Item Value Reference Range Interpretation Comments Lymphocytes (%) (Auto) (test code = 736-9) 19.5 18.0-39.1 [facility] PasoMonocytes (%) (Auto)2019-10-29 05:49:00* Test Item Value Reference Range Interpretation Comments Monocytes (%) (Auto) (test code = 5905-5) 7.9 4.4-11.3 [facility] PasoEosinophils (%) (Auto)2019-10-29 05:49:00 * Test Item Value Reference Range Interpretation Comments Eosinophils (%) (Auto) (test code = 713-8) 5.8 0.0-6.0 [facility] PasoBasophils (%) (Auto)2019-10-29 05:49:00* Test Item Value Reference Range Interpretation Comments Basophils (%) (Auto) (test code = 706-2) 0.8 0.0-1.0 [facility] PasoIM GRANULOCYTES %2019-10-29 05:49:00* Test Item Value Reference Range Interpretation Comments IM GRANULOCYTES % (test code = IM GRANULOCYTES %) 0.3 0.0- 1.0 [facility] PasoNeutrophils # (Auto)2019-10-29 05:49:00* Test Item Value Reference Range Interpretation Comments Neutrophils # (Auto) (test code = 751-8) 2.4 2.1-6.9 [facility] PasoLymphocytes # (Auto)2019-10-29 05:49:00* Test Item Value Reference Range Interpretation Comments Lymphocytes # (Auto) (test code = 39241-0) 0.7 1.0-3.2 L [facility] PasoMonocytes # (Auto)2019-10-29 05:49:00* Test Item Value Reference Range Interpretation Comments Monocytes # (Auto) (test code = 742-7) 0.3 0.2-0.8 [facility] PasoEosinophils # (Auto)2019-10-29 05:49:00* Test Item Value Reference Range Interpretation Comments Eosinophils # (Auto) (test code = 711-2) 0.2 0.0-0.4 [facility] PasoBasophils # (Auto)2019-10-29 05:49:00* Test Item Value Reference Range Interpretation Comments Basophils # (Auto) (test code = 704-7) 0.0 0.0-0.1 [facility] PasoAbsolute Immature Granulocyte (auto 2019-10-29 05:49:00* Test Item Value Reference Range Interpretation Comments Absolute Immature Granulocyte (auto (laura t code = Absolute Immature Granulocyte (auto) 0.01 0-0.1 [facility] PasoBllifec[facility] leukocytes automated count (number/volume)2019-10-29 05:20:00* Test Item Value Reference Range Interpretation Comments White Blood Count (test code = 6690-2) 3.65 4.8-10.8 [facility] PasoBlood erythrocytes automated count (number/volume)2019-10-29 05:20:00* Test Item Value Reference Range Interpretation Comments Red Blood Count (test code = 789-8) 3.56 4.3-5.7 [facility] PasoBlood hemoglobin measurement (moles/volume)2019-10-29 05:20:00* Test Item Value Reference Range Interpretation Comments Hemoglobin (test code = 71007-8) 11.6 14.0-18.0 [facility] PasoAutomated blood hematocrit (volume fraction)2019-10-29 05:20:00* Test Item Value Reference Range Interpretation Comments Hematocrit (test code = 4544-3) 35.5 38.2-49.6 [facility] PasoAutomated erythrocyte mean corpuscular [id number] 05:20:00* Test Item Value Reference Range Interpretation Comments Mean Corpuscular Volume (test code = 787-2) 99.7 81-99 [facility] PasoAutomated erythrocyte mean corpuscular hemoglobin (mass per erythrocyte)2019-10-29 05:20:00* Test Item Value Reference Range Interpretation Comments Mean Corpuscular Hemoglobin (test code = 785-6) 32.6 28-32 [facility] PasoAutomated erythrocyte mean corpuscular hemoglobin concentration measurement (mass/volume)2019-10-29 05:20:00* Test Item Value Reference Range Interpretation Comments Mean Corpuscular Hemoglobin Concent (test code = 786-4) 32.7 31-35 [facility] PasoRDW LkpGt-Ioy5383-84-16 05:20:00* Test Item Value Reference Range Interpretation Comments Red Cell Distribution Width (test code = 57167-8) 15.0 11.7 -14.4 [facility] PasoAutomated blood platelet count (count/volume)2019-10-29 05:20:00* Test Item Value Reference Range Interpretation Comments Platelet Count (test code = 777-3) 133 140-360 [facility] PasoAutomated blood segmented neutrophil count as percentage of total kxpjspledx4993-04-94 05:20:00* Test Item Value Reference Range Interpretation Comments Neutrophils (%) (Auto) (test code = 44357-8) 65.7 38.7-80.0 [facility] PasoAutomated blood lymphocyte count as percentage ot total oomdicezer0783-29-03 05:20:00* Test Item Value Reference Range Interpretation Comments Lymphocytes (%) (Auto) (test code = 736-9) 19.5 18.0-39.1 [facility] PasoAutom[facility] blood monocyte count as percentage of total itoumwqtsn2832-40-92 05:20:00* Test Item Value Reference Range Interpretation Comments Monocytes (%) (Auto) (test code = 5905-5) 7.9 4.4-11.3 [facility] Paso[facility] blood eosinophil count as percentage of total kqfmfrvcxa4119-41-49 05:20:00* Test Item Value Reference Range Interpretation Comments Eosinophils (%) (Auto) (test code = 713-8) 5.8 0.0-6.0 [facility] PasoAutom[facility] blood basophil count as percentage of total enanoqzekk9542-65-84 05:20:00* Test Item Value Reference Range Interpretation Comments Basophils (%) (Auto) (test code = 706-2) 0.8 0.0-1.0 [facility] PasoFluoroscopic procedure less than one hour qiizrrow7155-62-10 05:20:00* Test Item Value Reference Range Interpretation Comments IM GRANULOCYTES % (test code = IM GRANULOCYTES %) 0.3 0.0- 1.0 [facility] PasoAutom[facility] blood neutrophil count 2019-10-29 05:20:00* Test Item Value Reference Range Interpretation Comments Neutrophils # (Auto) (test code = 751-8) 2.4 2.1-6.9 [facility] PasoBlood lymphocytes count (number/volume) 2019-10-29 05:20:00* Test Item Value Reference Range Interpretation Comments Lymphocytes # (Auto) (test code = 18847-9) 0.7 1.0-3.2 [facility]Bll[facility] monocytes automated count (number/volume)2019-10-29 05:20:00* Test Item Value Reference Range Interpretation Comments Monocytes # (Auto) (test code = 742-7) 0.3 0.2-0.8 [facility] PasoAutom[facility] blood eosinophil count 2019-10-29 05:20:00* Test Item Value Reference Range Interpretation Comments Eosinophils # (Auto) (test code = 711-2) 0.2 0.0-0.4 [facility] PasoAutomated blood basophil count (count/volume)2019-10-29 05:20:00* Test Item Value Reference Range Interpretation Comments Basophils # (Auto) (test code = 704-7) 0.0 0.0-0.1 [facility] PasoFluoroscopic procedure less than one hour rxvxnycj9472-07-92 05:20:00* Test Item Value Reference Range Interpretation Comments Absolute Immature Granulocyte (auto (laura t code = Absolute Immature Granulocyte (auto) 0.01 0-0.1 [facility] PasoProthrombin time (PT) in platelet poor plasma by coagulation hblok3991-52-38 05:20:00* Test Item Value Reference Range Interpretation Comments Prothrombin Time (test code = 5902-2) 28.3 11.9-14.5 [facility] PasoINR in Platelet poor plasma by Coagulation caelv1992-89-58 05:20:00* Test Item Value Reference Range Interpretation Comments Prothromb Time International Ratio (test code = 6301-6) 2.44 Oral Anticoagulant Therapy INR Values:1. Low Intensity Therapy 1.5 - 2.02 . Moderate Intensity Therapy 2.0 - 3.03. High Intensity Therapy(1) 2.5 - 3. 54. High Intensity Therapy(2) 3.0 - 4.05. Panic Value INR > 5.0 [facility] Southerum or plasma sodium measurement (moles/volume)2019-10-29 05:20:00* Test Item Value Reference Range Interpretation Comments Sodium Level (test code = 2951-2) 136 136-145 [facility] Southerum or plasma potassium measurement (moles/volume)2019-10-29 05:20:00* Test Item Value Reference Range Interpretation Comments Potassium Level (test code = 2823-3) 4.3 3.5-5.1 [facility] Southerum or plasma chloride measurement (moles/volume)2019-10-29 05:20:00* Test Item Value Reference Range Interpretation Comments Chloride Level (test code = 2075-0) 103 98-107 [facility] Southerum or plasma carbon dioxide, total measurement (moles/volume)2019-10-29 05:20:00* Test Item Value Reference Range Interpretation Comments Carbon Dioxide Level (test code = 2028-9) 31 22-29 [facility] Southerum or plasma anion rfx6817-86-55 05:20:00* Test Item Value Reference Range Interpretation Comments Anion Gap (test code = 19490-2) 6.3 8-16 [facility]herum or plasma urea nitrogen measurement (mass/volume)2019-10-29 05:20:00* Test Item Value Reference Range Interpretation Comments Blood Urea Nitrogen (test code = 3094-0) 5 7-26 [facility]herum or plasma creatinine measurement (mass/volume)2019-10-29 05:20:00* Test Item Value Reference Range Interpretation Comments Creatinine (test code = 2160-0) 0.81 0.72-1.25 [facility]herum or plasma urea nitrogen/creatinine mass avnzp6304-00-18 05:20:00* Test Item Value Reference Range Interpretation Comments BUN/Creatinine Ratio (test code = 3097-3) 6 6-25 [facility] PasoEstimated glomerular filtration rate (GFR) ytuhshqiodmma0358-06-79 05:20:00* Test Item Value Reference Range Interpretation Comments Estimat Glomerular Filtration Rate (test code = 948800487) > 60 >60 Ranges were taken from the National Kidney Disease Education Program and the [facility] Kidney Foundation literature.Reference ranges:60 or greater: Ghxzne89-59 ( for 3 consecutive months): Chronic kidney disease 15 or less: Kidney failureUniversity [facility] of [facility] PasoGlucose ssyrnfbhxac5227-78-60 05:20:00* Test Item Value Reference Range Interpretation Comments Glucose Level (test code = XWN5994) 90 74-118 [facility]herum or plasma calcium measurement (mass/volume)2019-10-29 05:20:00* Test Item Value Reference Range Interpretation Comments Calcium Level (test code = 94334-1) 8.4 8.4-10.2 [facility]herum or plasma total bilirubin measurement (mass/volume)2019-10-29 05:20:00* Test Item Value Reference Range Interpretation Comments Total Bilirubin (test code = 1975-2) 1.1 0.2-1.2 [facility] PasoFluoroscopic procedure less than one hour gngqerks6754-66-41 05:20:00* Test Item Value Reference Range Interpretation Comments Aspartate Amino Transf (AST/SGOT) (test code = Aspartate Amino Transf (AST/SGOT)) 19 5-34 [facility]herum or plasma alanine aminotransferase measurement (enzymatic activity/volume)2019-10-29 05:20:00* Test Item Value Reference Range Interpretation Comments Alanine Aminotransferase (ALT/SGPT) (test code = 1742-6) 9 0-55 [facility] or plasma protein measurement (mass/volume)2019-10-29 05:20:00* Test Item Value Reference Range Interpretation Comments Total Protein (test code = 2885-2) 5.0 6.5-8.1 [facility] or plasma albumin measurement (mass/volume)2019-10-29 05:20:00* Test Item Value Reference Range Interpretation Comments Albumin (test code = 1751-7) 2.7 3.5-5.0 [facility] PasoPlasma globulin measurement (mass/volume) 2019-10-29 05:20:00* Test Item Value Reference Range Interpretation Comments Globulin (test code = 99659-6) 2.3 2.3-3.5 [facility] or plasma albumin/globulin mass hvxbs2060-22-82 05:20:00* Test Item Value Reference Range Interpretation Comments Albumin/Globulin Ratio (test code = 1759-0) 1.2 0.8-2.0 [facility]herum or plasma alkaline phosphatase measurement (enzymatic activity/volume)2019-10-29 05:20:00* Test Item Value Reference Range Interpretation Comments Alkaline Phosphatase (test code = 6768-6) 83 40-150 [facility] PasoBlood Jwishuv0279-76-51 19:26:00* Test Item Value Reference Range Interpretation Comments Blood Culture (test code = 24710520) NO GROWTH AFTER 24 HOURS [facility] PasoCreatine Bgkfbw7745-06-24 06:23:00* Test Item Value Reference Range Interpretation Comments Creatine Kinase (test code = 2157-6) 30 30-200 [facility] PasoCreatine Kinase XV8874-92-98 06:23:00* Test Item Value Reference Range Interpretation Comments Creatine Kinase MB (test code = 44303-2) 1.30 0-5.0 [facility] PasoTroponin F2169-30-82 06:23:00* Test Item Value Reference Range Interpretation Comments Troponin I (test code = NBO1166) 0.025 0-0.300 [facility] PasoActivated Partial Thromboplast Time 2019-10-28 05:44:00* Test Item Value Reference Range Interpretation Comments Activated Partial Thromboplast Time (test code = 44955-1) 74.6 23.8-35.5 H [facility] PasoActivated partial thromboplastin time (aPTT) in platelet poor plasma by coagulation ltgpq8789-22-40 04:45:00* Test Item Value Reference Range Interpretation Comments Activated Partial Thromboplast Time (test code = 25803-3) 74.6 23.8-35.5 [facility] Southerum or plasma creatine kinase measurement (enzymatic activity/volume)2019-10-28 04:45:00* Test Item Value Reference Range Interpretation Comments Creatine Kinase (test code = 2157-6) 30 30-200 [facility]herum or plasma creatine kinase MB measurement (mass/volume)2019-10-28 04:45:00* Test Item Value Reference Range Interpretation Comments Creatine Kinase MB (test code = 71126-7) 1.30 0-5.0 [facility] PasoTroponin I measurement by highly sensitive enzyme ccbpcrqipet9588-80-48 04:45:00* Test Item Value Reference Range Interpretation Comments Troponin I (test code = 69141-0) 0.025 0-0.300 [facility] PasoUrine Cpcer1068-93-93 18:15:00* Test Item Value Reference Range Interpretation Comments Urine Color (test code = 5778-6) YELLOW YELLOW [facility] PasoUrine Bafjypj6517-82-71 18:15:00* Test Item Value Reference Range Interpretation Comments Urine Clarity (test code = 78314-3) HAZY CLEAR [facility] PasoUrine Specific Hbpqakm0997-85-10 18:15:00 * Test Item Value Reference Range Interpretation Comments Urine Specific Cullen (test code = 5811-5) 1.015 1.010-1.02 5 [facility] PasoUrine cA9000-99-55 18:15:00* Test Item Value Reference Range Interpretation Comments Urine pH (test code = 58479-9) 5 5-7 [facility] Leukocyte Xjafuzvm1213-39-81 18:15:00* Test Item Value Reference Range Interpretation Comments Urine Leukocyte Esterase (test code = 5799-2) NEGATIVE NEGATIVE [facility] PasoU[facility] Rddrgch3649-39-06 18:15:00* Test Item Value Reference Range Interpretation Comments Urine Nitrite (test code = 62916-9) NEGATIVE NEGATIVE [facility] PasoUrine Ueqgang9191-54-37 18:15:00* Test Item Value Reference Range Interpretation Comments Urine Protein (test code = 5804-0) NEGATIVE NEGATIVE [facility] PasoU[facility] Glucose (UA)2019-10-27 18:15:00* Test Item Value Reference Range Interpretation Comments Urine Glucose (UA) (test code = 2349-9) NEGATIVE NEGATIVE [facility] PasoU[facility] Eigjtqi1388-54-51 18:15:00* Test Item Value Reference Range Interpretation Comments Urine Ketones (test code = 35630-7) NEGATIVE NEGATIVE [facility] PasoU[facility] Lfyifyssgjoh0398-50-88 18:15:00* Test Item Value Reference Range Interpretation Comments Urine Urobilinogen (test code = 81480-3) 0.2 0.2-1 [facility] PasoUrine Nohhaznbw5577-66-42 18:15:00* Test Item Value Reference Range Interpretation Comments Urine Bilirubin (test code = 1978-6) NEGATIVE NEGATIVE [facility] Paso[facility] Tdpvn9453-74-18 18:15:00* Test Item Value Reference Range Interpretation Comments Urine Blood (test code = 97348-3) NEGATIVE NEGATIVE [facility] Paso[facility] EVV2832-06-86 18:15:00* Test Item Value Reference Range Interpretation Comments Urine WBC (test code = 5821-4) 0-5 0-5 [facility] OAE1976-86-18 18:15:00* Test Item Value Reference Range Interpretation Comments Urine RBC (test code = 28689-1) 0-5 0-5 [facility] Ylvwubaz7451-92-62 18:15:00* Test Item Value Reference Range Interpretation Comments Urine Bacteria (test code = 90603-4) FEW NONE [facility] Epithelial Rxdby5434-73-10 18:15:00 * Test Item Value Reference Range Interpretation Comments Urine Epithelial Cells (test code = 94050-8) FEW NONE [facility] PasoCT ABDOMEN/PELVIS [id number] 17:45:00 [facility] [address] [place] [address] Patient Name: NANCY EASTON MR #: [id number] : 1955 Age/Sex: 64/M Req #: [id number] Adm Physician: Ordered by: EDITH NICHOLSON MD Report #: [id number] Location: ER Room/Bed: Procedure: [id number] CT/ CT ABDOMEN/PELVIS W Exam Date: 10/27/19 Exam Time: 1 620 REPORT STATUS: Signed EXAMIN ATION: CT of the chest, abdomen and pelvis with contrast. TECHNIQUE: Spi ral CT images of the chest, abdomen and pelvis were performed from the lung ap ices to the lesser trochanters after the intravenous administration of 100 cc of Isovue 370 and the oral administration of water. Coronal and sagittal refor matted images were obtained. COMPARISON: None. CLINICAL HISTORY:No h istory of trauma. Mass in the left scapular region/right posterior chest, sore ness for the last week, patient on anticoagulation DISCUSSION: EST: LINES/TUBES: None. LUNGS AND AIRWAYS: 4-5 mm pulmonary nodule in the lateral left lower lobe (series 4, image 122). No other pulmonary no dules. No masses or consolidation. Airways are clear, without endobronchial le sions. PLEURA: No effusion or pneumothorax. HEART AND MEDIASTINUM: Th e thyroid gland is normal. The heart and pericardium are within normal limits. Aortic valve replacement. Atherosclerotic disease of the thoracic aorta, with prominent soft plaque noted at the arch and descending aorta. Small penetrati ng ulcer in the descending aorta (series 102, image 86). No periaortic hematom a. LYMPH NODES: No significant mediastinal, hilar or axillary lymphadenopat hy is seen. BONES AND SOFT TISSUES: No bony destructive lesions. Mild bi lateral gynecomastia, right greater than left. Moderate thickening with are a of heterogeneous increased density measuring approximately 8.1 x 4.7 x 11.6 cm in the region of the right latissimus dorsi/serratus muscle inferior to the scapular tip (series 102, image 76), consistent with a hematoma. ABDO MEN/PELVIS: HEPATOBILIARY: No focal hepatic lesions. No intra or extrahepa tic biliary ductal dilation. GALLBLADDER: No radio-opaque stones or sludg e. No wall thickening. SPLEEN: Mild splenomegaly, measuring 13.1 cm in AP diameter. PANCREAS: No focal masses or ductal dilatation. ADRENALS: No adrenal nodules. KIDNEYS/URETERS: No hydronephrosis, stones, or solid mass lesions. PELVIC ORGANS/BLADDER: Bladder and prostate are unremarkable. PERITONEUM/RETROPERITONEUM: No free air or fluid. LYMPH NODES: No intra-a bdominal,retroperitoneal, pelvic or inguinal lymphadenopathy. VESSELS: Th e celiac trunk,superior and inferior mesenteric and bilateral renal arteries are patent The portal, superior mesenteric and splenic veins are patent. Athe rosclerotic disease of the abdominal aorta with soft and calcified plaque pred ominantly in the distal portion extending to bilateral iliac vessels. GI TRACT: No bowel dilation or evidence of obstruction. No pericolonic inflammat ory changes. BONES AND SOFT TISSUES: No aggressive lytic lesions. Degenerat ed discs in the lower thoracic and lumbosacral spine with associated osteophyt osis. Soft tissues are grossly unremarkable. IMPRESSION: 1. Large zack kaela in the region of the right latissimus dorsi/serratus muscles inferior to the scapular tip. No active contrast extravasation. No other hematoma or evide nce of internal bleeding. 2. 4-5 mm pulmonary nodule in the lateral left lo wer lobe. If patient is low risk, no further follow-up is indicated per [employer] 2017 guidelines. 3. Mild splenomegaly. Signed by: Dr. Jim Leong M.D. on 10/27/2019 5:56 PM Dictated By: VIDAL LEONG MD 55 Transcribed By: Kyree CARTER on 10/27/191755 COPY TO: EDITH NICHOLSON MD CT CHEST W 2019-10-27 17:45:[address], [place], [place] [address] Patient Name: NANCY EASTON MR #: [id number] : 1955 Age/Sex: 64/M Req #: [id number] [facility] Physician: Ordered by: EDITH NICHOLSON MD Report #: [id number] Location: ER Room/Bed: Procedure: [id number] CT/ CT CHEST W Exam Date: 10/27/19 Exam Time: 1620 REPORT STATUS: Signed EXAMINATION: CT of the chest, abdomen and pelvis with contrast. TECHNIQUE: Spiral CT im ages of the chest, abdomen and pelvis were performed from the lung apices to t he lesser trochanters after the intravenous administration of 100 cc of Isovue 370 and the oral administration of water. Coronal and sagittal reformatted im ages were obtained. COMPARISON: None. CLINICAL HISTORY:No history of trauma. Mass in the left scapular region/right posterior chest, soreness for the last week, patient on anticoagulation DISCUSSION: CHEST: LINES/TUBES: None. LUNGS AND AIRWAYS: 4-5 mm pulmonary nodule in the l ateral left lower lobe (series 4, image 122). No other pulmonary nodules. No masses or consolidation. Airways are clear, without endobronchial lesions. PLEURA: No effusion or pneumothorax. HEART AND MEDIASTINUM: The thyroid gland is normal. The heart and pericardium are within normal limits. Aortic v alve replacement. Atherosclerotic disease of the thoracic aorta, with prominen t soft plaque noted at the arch and descending aorta. Small penetrating ulcer in the descending aorta (series 102, image 86). No periaortic hematoma. L YMPH NODES: No significant mediastinal, hilar or axillary lymphadenopathy is s een. BONES AND SOFT TISSUES: No bony destructive lesions. Mild bilateral gynecomastia, right greater than left. Moderate thickening with area of hete rogeneous increased density measuring approximately 8.1 x 4.7 x 11.6 cm in the region of the right latissimus dorsi/serratus muscle inferior to the scapular tip (series 102, image 76), consistent with a hematoma. ABDOMEN/PELVI S: HEPATOBILIARY: No focal hepatic lesions. No intra or extrahepatic bilia ry ductal dilation. GALLBLADDER: No radio-opaque stones or sludge. No wa ll thickening. SPLEEN: Mild splenomegaly, measuring 13.1 cm in AP diameter. PANCREAS: No focal masses or ductal dilatation. ADRENALS: No adrenal nodules. KIDNEYS/URETERS: No hydronephrosis, stones, or solid mass lesions. PELVIC ORGANS/BLADDER: Bladder and prostate are unremarkable. PERITON EUM/RETROPERITONEUM: No free air or fluid. LYMPH NODES: No intra-abdominal, retroperitoneal, pelvic or inguinal lymphadenopathy. VESSELS: The celiac trunk,superior and inferior mesenteric and bilateral renal arteries are paten t The portal, superior mesenteric and splenic veins are patent. Atherosclerot ic disease of the abdominal aorta with soft and calcified plaque predominantly in the distal portion extending to bilateral iliac vessels. GI TRACT: No bowel dilation or evidence of obstruction. No pericolonic inflammatory ozuna es. BONES AND SOFT TISSUES: No aggressive lytic lesions. Degenerated discs in the lower thoracic and lumbosacral spine with associated osteophytosis. Sof t tissues are grossly unremarkable. IMPRESSION: 1. Large hematoma in t he region of the right latissimus dorsi/serratus muscles inferior to the scapu lar tip. No active contrast extravasation. No other hematoma or evidence of in ternal bleeding. 2. 4-5 mm pulmonary nodule in the lateral left lower lobe. If patient is low risk, no further follow-up is indicated per [employer] et[employer] 2017 guidelines. 3. Mild splenomegaly. Signed by: Dr. Vidal dixon M.D. on 10/27/2019 5:56 PM Dictated By: VIDAL LEONG MD Electron ically Signed By: VIDAL LEONG MD on 10/27/191755 Transcribed By: REBECCA on 10/27/191755 COPY TO: EDITH NICHOLSON MD Urine color bvvtqixghkudi5786-67-01 17:29:00* Test Item Value Reference Range Interpretation Comments Urine Color (test code = 5778-6) YELLOW YELLOW [facility] exfznkc7133-93-10 17:29:00* Test Item Value Reference Range Interpretation Comments Urine Clarity (test code = 29947-6) HAZY CLEAR [facility]pecific gravity of Urine by Test strip 2019-10-27 17:29:00* Test Item Value Reference Range Interpretation Comments Urine Specific Cullen (test code = 5811-5) 1.015 1.010-1.02 5 [facility] pH measurement by automated test plixm9533-97-68 17:29:00* Test Item Value Reference Range Interpretation Comments Urine pH (test code = 86206-1) 5 5-7 [facility] PasoU[facility] leukocyte esterase detection by qhnzlqld4326-71-32 17:29:00* Test Item Value Reference Range Interpretation Comments Urine Leukocyte Esterase (test code = 5799-2) NEGATIVE NEGATIVE [facility] PasoUrine nitrite tdsbckxbp2289-36-53 17:29:00* Test Item Value Reference Range Interpretation Comments Urine Nitrite (test code = 86385-4) NEGATIVE NEGATIVE [facility] Paso[facility] protein measurement by test strip (mass/volume)2019-10-27 17:29:00* Test Item Value Reference Range Interpretation Comments Urine Protein (test code = 5804-0) NEGATIVE NEGATIVE [facility] PasoU[facility] glucose xghzzpuvw9996-71-56 17:29:00* Test Item Value Reference Range Interpretation Comments Urine Glucose (UA) (test code = 2349-9) NEGATIVE NEGATIVE [facility] PasoUrine ketones detection by automated test auaqs8484-10-51 17:29:00* Test Item Value Reference Range Interpretation Comments Urine Ketones (test code = 69035-3) NEGATIVE NEGATIVE [facility] PasoUrine urobilinogen measurement by test strip (mass/volume)2019-10-27 17:29:00* Test Item Value Reference Range Interpretation Comments Urine Urobilinogen (test code = 07785-8) 0.2 0.2-1 [facility] total bilirubin measurement (mass/volume)2019-10-27 17:29:00* Test Item Value Reference Range Interpretation Comments Urine Bilirubin (test code = 1978-6) NEGATIVE NEGATIVE [facility] PasoU[facility] erythrocytes rmcrantvw8071-51-54 17:29:00* Test Item Value Reference Range Interpretation Comments Urine Blood (test code = 87111-1) NEGATIVE NEGATIVE [facility] PasoAutomated urine sediment leukocyte count by microscopy (number/high power field)2019-10-27 17:29:00* Test Item Value Reference Range Interpretation Comments Urine WBC (test code = 5821-4) 0-5 0-5 [facility] PasoErythrocytes detection in urine sediment by light tkctwjnofz8077-42-95 17:29:00* Test Item Value Reference Range Interpretation Comments Urine RBC (test code = 92934-8) 0-5 0-5 [facility] PasoBacteria detection in urine sediment by light yflctayuex9299-63-19 17:29:00* Test Item Value Reference Range Interpretation Comments Urine Bacteria (test code = 16959-4) FEW NONE [facility] PasoEpithelial cells detection in urine sediment by light lfxfboukgc8832-90-88 17:29:00* Test Item Value Reference Range Interpretation Comments Urine Epithelial Cells (test code = 77700-4) FEW NONE [facility] PasoBlood qmfbudd8117-19-09 17:29:00* Test Item Value Reference Range Interpretation Comments Blood Culture (test code = 82470116) NO GROWTH AFTER 5 DAYS, FINAL REPORT [facility] PasoB-Type Natriuretic Cmdgepm5159-97-42 16:42:00* Test Item Value Reference Range Interpretation Comments B-Type Natriuretic Peptide (test code = 16623-8) 74.6 0-100 [facility] PasoMagnesium Zqwlr9795-10-12 16:17:00* Test Item Value Reference Range Interpretation Comments Magnesium Level (test code = 57265-2) 1.8 1.3-2.1 [facility] PasoLipase2020-03-14 16:17:00* Test Item Value Reference Range Interpretation Comments Lipase (test code = 3040-3) 9 8-78 [facility] Southerum or plasma magnesium measurement (mass/volume)2019-10-27 15:23:00* Test Item Value Reference Range Interpretation Comments Magnesium Level (test code = 70832-0) 1.8 1.3-2.1 [facility] [id number] 15:23:00* Test Item Value Reference Range Interpretation Comments B-Type Natriuretic Peptide (test code = 21830-9) 74.6 0-100 [facility] or plasma lipase measurement (enzymatic activity/volume)2019-10-27 15:23:00* Test Item Value Reference Range Interpretation Comments Lipase (test code = 3040-3) 9 8-78 [facility] [id number] 17:24:00* Test Item Value Reference Range Interpretation Comments PROTHROMBIN TIME PATIENT (test code = PTP) 65.5 seconds 9.0-14.0 H INTERNATIONAL NORMAL RATIO (test code = INR) 5.6 0.8-1.2 HH Results called to [id number] by IVORY 03/22/19 1723Critical results verified and read back by Nurse? YThe therapeutic range for oral anticoagulant therapy formost indications is an international normalized ratio (INR)of between 2.0 and 3.0. The recommended therapeutic INRrange for various clinical situations is listed below: Clinical Situation INR range Pulmonary embolism treatment (2.0-3.0)Venous thrombosis treatmentVenous thrombosis prophylaxis (high risk surgery)Prevention of systemic embolism from: Acute myocardial infarction Valvular heart disease Atrial fibrillation Mechanical prosthetic heart valves (2.5-3.5) IS PATIENT ON ANTICOAGULANTS? YLIST ANTICOAGULANTS COUMADINTHROMBOPLASTIN TIME [id number] 17:24:00* Test Item Value Reference Range Interpretation Comments THROMBOPLASTIN TIME PARTIAL (test code = PTT) 64.4 seconds 25.0-36. 5 H RESULT VERIFIED BY REPEAT ANALYSIS IS PATIENT ON ANTICOAGULANTS? YLIST ANTICOAGULANTS COUMADINBASIC METABOLIC PANEL 2019-03-22 16:48:00* Test Item Value Reference Range Interpretation Comments SODIUM (test code = NA) 144 mmol/L 136-145 N POTASSIUM (test code = K) 3.9 mmol/L 3.5-5.1 N CHLORIDE (test code = CL) 109.0 mmol/L 98-107 H CARBON DIOXIDE (test code = CO2) 26.0 mmol/L 21-32 N ANION GAP (test code = GAP) 12.9 10-20 N GLUCOSE (test code = GLU) 114 mg/dL 74-106 H BLOOD UREA NITROGEN (test code = BUN) 12 mg/dL 7-18 N GLOMERULAR FILTRATION RATE (test code = GFR) > 60 mL/min >=60 Estimated GFR by using Modified MDRD formula.Chronic kidney disease is defined as either kidney damageor GFR <60 mL/min/1.73 m2 for >3 months. CREATININE (test code = CREAT) 1.00 mg/dL 0.7-1.3 N BUN/CREATININE RATIO (test code = BUN/CREA) 12.3 10-20 N CALCIUM (test code = CA) 8.5 mg/dL 8.5-10.1 N - CT C-SPINE W/O [id number] 16:42:00 Name: NANCY EASTON [facility] : 1955 Age/S: 64 / M [address] [facility] Unit #: [id number] Loc: [place] [address] Phys: Ceci Marinelli MD Acct: [id number] Dis Date: Status: REG ER PHONE #: [phone] Exam Date: 03/22/2019 1635 FAX #: [phone] Reason: fall EXAMS: CPT CODE: [id number] CT C-SPINE W/O CONTRAST 07518 REASON FOR EXAM: fall EXAM ORDER DATE: 03/22/2019 4:11 PM Ordering M.Nancy: Ceci Marinelli MD PROCEDURE: - CT C-SPINE W/O CONTRAST FINDINGS: CT images of the cervical spine were obtained without IV contrast at 2.5mm. Reconstructed coronal and sagittal images were also provided. Dose modulation, iterative reconstruction, and/or weight based adjustment of the MA/KV was utilized to reduce the radiation dose to as low as reasonably achievable. The osseous structures are intact. O steophytes are seen at C5-C7 The central canal is patent. Minimal narrowing of C6-7 disc space IMPRESSION: Degenerat joanne changes and disc disease most pronounced at C6-7 Electro nically Signed by Trevor Holley on 03/22/2019 at 1642 Rep orted and signed by: Deacon Holley M.D. CC: Ceci Marinelli MD Technologist:Martha Domingo RT(R); YOLANDA Evans CTDI: DLP: Trnscb Date/Time: 03/22/2019 (1642) t.SDR.VTL Orig Print D/T: S: 03/22/2019 (0228) PAGE 1 Signed Report - CT MAXIFAC W/O [id number] 16:41:00 Name: NANCY EASTON MIKE [facility] : 1955 Age/S: 64 / M [address] [facility] Unit #: [id number] Loc: [place] [address] Phys: Ceci Marinelli MD Acct: [id number] Dis Date: Status: REG ER PHONE #: [phone] Exam Date: 03/22/2019 1635 FAX #: [phone] Reason: fall, swelling to R jaw, broken teeth EXAMS: CPT CODE: [id number] [place]IFAC [place] [address] REASON FOR EXAM: fall, swelling to R jaw, broken teeth EXAM ORDER DATE: 03/22/2019 4:11 PM Ordering Trevor: Ceci Marinelli MD PROCEDURE: - CT MAXIFAC W/O CNT FINDINGS: CT images of the face were obtained without IV contrast at 2.5 mm thickness. Dose modulation, iterative reconstruction, and/or weight based adjustment of the MA/KV was utilized to reduce the radiation dose to as low as reasonably achievable. The globes are intact. The orbital tracey are unremarkable without evidence of orbital blowout fracture. The nasal bone is unremarkable. The mandibles are within normal limits. No evidence of facial fracture The visualized paranasal sinuses are well aerated IMPRESSION: Moderate soft tissue swelling in the right mandible with displaced broken teeth. No evidence of facial fracture at 1641 Reported and signed by: Deacon Holley M.D. CC: Ceci Marinelli MD Technologist:Martha Domingo RT(R); YOLANDA Evans CTDI: DLP: Trnscb Date/Time: 03/22/2019 (1641) tNOBLER.VTL Orig Print D/T: S: 03/22/2019 (4644) PAGE 1 Signed Report CBC W/AUTO [id number] 16:39:00* Test Item Value Reference Range Interpretation Comments WHITE BLOOD CELL (test code = WBC) 9.2 K/mm3 4.5-12.5 N RED BLOOD CELL (test code = RBC) 4.99 mill/mm3 4.0-5.8 N HEMOGLOBIN (test code = HGB) 16.5 gram/dL 13.0-17.5 N HEMATOCRIT (test code = HCT) 47.4 % 42.0-52.0 N MEAN CELL VOLUME (test code = MCV) 95.0 fL 80-98 N MEAN CELL HGB (test code = MCH) 33.1 picogram 27.0-33.0 H MEAN CELL HGB CONCETRATION (test code = MCHC) 34.8 gram/dL 33.0-36. 0 N RED CELL DISTRIBUTION WIDTH (test code = RDW) 14.6 % 11.6-16. 2 N RED CELL DISTRIBUTION WIDTH SD (test code = RDW-SD) 50.8 fL 37 .0-51.0 N PLATELET COUNT (test code = PLT) 160 K/mm3 150-450 N MEAN PLATELET VOLUME (test code = MPV) 8.9 fL 6.7-11.0 N NEUTROPHIL % (test code = NT%) 84.1 % 39.0-69.0 H IMMATURE GRANULOCYTE % (test code = IG%) 0.5 % 0.0-5.0 N LYMPHOCYTE % (test code = LY%) 8.4 % 25.0-55.0 L MONOCYTE % (test code = MO%) 5.5 % 0.0-10.0 N EOSINOPHIL % (test code = EO%) 1.0 % 0.0-5.0 N BASOPHIL % (test code = BA%) 0.5 % 0.0-1.0 N NUCLEATED RBC % (test code = NRBC%) 0.0 % 0-0 N NEUTROPHIL # (test code = NT#) 7.72 K/mm3 1.8-7.7 H IMMATURE GRANULOCYTE # (test code = IG#) 0.05 x10 3/uL 0-0.03 H LYMPHOCYTE # (test code = LY#) 0.77 K/mm3 1.0-5.0 L MONOCYTE # (test code = MO#) 0.51 K/mm3 0-0.8 N EOSINOPHIL # (test code = EO#) 0.09 K/mm3 0.0-0.5 N BASOPHIL # (test code = BA#) 0.05 K/mm3 0.0-0.2 N NUCLEATED RBC # (test code = NRBC#) 0.00 K/mm3 0.0-0.1 N MANUAL DIFF REQUIRED (test code = MDIFF) NO - CT HEAD/BRAIN W/O [id number] 16:37:00 Name: RUSTAMNANCY MIKE [facility] : 1955 Age/S: 64 / M [address] [facility] Unit #: [id number] Loc: [place] [address] Phys: Ceci Marinelli MD Acct: [id number] Dis Date: Status: REG ER PHONE #: [phone] Exam Date: 03/22/2019 1635 FAX #: [phone] Reason: fall EXAMS: CPT CODE: [id number] CT HEAD/BRAIN W/O CONT [id number] REASON FOR EXAM: fall EXAM ORDER DATE: 03/22/2019 4:11 PM Ordering M.D.: Ceci Marinelli MD PROCEDURE: - CT HEAD/BRAIN W/O CONT COMPARISON: FINDINGS: CT images of the brain were obtained without IV contrast. Dose modulation, iterative reconstruction, and/or weight based adjustment of the MA/KV was utilized to reduce the radiation dose to as low as reasonably achievable. The brain parenchyma is within normal limits. The bill-white matter delineation is unremarkable. The ventricles, cisterns, and sulci are unremarkable. There is no evidence of hemorrhage, mass, mass effect. There is no evidence of acute or old infarct. The calvarium is intact. IMPRESSION: Unremarkable brain. at 1637 Reported and signed by: Deacon Holley M.D. CC: Ceci Marinelli MD Technologist:Martha Domingo RT(R); YOLANDA Evans CTDI: DLP: Trnscb Date/Time: 03/22/2019 (1637) PiterRLudmilaVTL Orig Print D/T: S: 03/22/2019 (6396) PAGE 1 Signed Report CBC W/AUTO [id number] 16:36:00* Test Item Value Reference Range Interpretation Comments WHITE BLOOD CELL (test code = WBC) K/mm3 4.5-12.5 RED BLOOD CELL (test code = RBC) mill/mm3 4.0-5.8 HEMOGLOBIN (test code = HGB) 16.5 gram/dL 13.0-17.5 N HEMATOCRIT (test code = HCT) 47.4 % 42.0-52.0 N MEAN CELL VOLUME (test code = MCV) fL 80-98 MEAN CELL HGB (test code = MCH) picogram 27.0-33.0 MEAN CELL HGB CONCETRATION (test code = MCHC) gram/dL 33.0-36. 0 RED CELL DISTRIBUTION WIDTH (test code = RDW) % 11.6-16. 2 RED CELL DISTRIBUTION WIDTH SD (test code = RDW-SD) fL 37 .0-51.0 PLATELET COUNT (test code = PLT) K/mm3 150-450 MEAN PLATELET VOLUME (test code = MPV) fL 6.7-11.0 NEUTROPHIL % (test code = NT%) % 39.0-69.0 IMMATURE GRANULOCYTE % (test code = IG%) % 0.0-5.0 LYMPHOCYTE % (test code = LY%) % 25.0-55.0 MONOCYTE % (test code = MO%) % 0.0-10.0 EOSINOPHIL % (test code = EO%) % 0.0-5.0 BASOPHIL % (test code = BA%) % 0.0-1.0 NEUTROPHIL # (test code = NT#) K/mm3 1.8-7.7 LYMPHOCYTE # (test code = LY#) K/mm3 1.0-5.0 MONOCYTE # (test code = MO#) K/mm3 0-0.8 EOSINOPHIL # (test code = EO#) K/mm3 0.0-0.5 BASOPHIL # (test code = BA#) K/mm3 0.0-0.2 RESPIRATORY VIRUS PANEL [id number] 22:06:00* Test Item Value Reference Range Interpretation Comments RSV A PCR (test code = RSV A) Negative Negative RSV B PCR (test code = RSV B) Negative Negative INFLUENZA A PCR (test code = FLUAPCR) Negative Negative INFLUENZA B PCR (test code = FLUBPCR) Negative Negative PARAINFLUENZA TYPE 1 PCR (test code = PIF1) Negative Negative PARAINFLUENZA TYPE 2 PCR (test code = PIF2) Negative Negative PARAINFLUENZA TYPE 3 PCR (test code = PIF3) Negative Negative RHINOVIRUS PCR (test code = RHINO) Positive Negative A METAPNEUMOVIRUS PCR (test code = METAPNEU) Negative Negative ADENOVIRUS PCR (test code = ADENOPCR) Negative Negative Performed At: [facility] [id number] Sanjai MD Ph:[phone] PROTHROMBIN [id number] 04:43:00* Test Item Value Reference Range Interpretation Comments PROTHROMBIN TIME PATIENT (test code = PTP) 27.9 seconds 9.0-14.0 H INTERNATIONAL NORMAL RATIO (test code = INR) 2.4 0.8-1.2 H The therapeutic range for oral anticoagulant therapy formost indications is an international normalized ratio (INR)of between 2.0 and 3.0. The recommended therapeutic INRrange for various clinical situations is listed below: Clinical Situation INR range Pulmonary e mbolism treatment (2.0-3.0)Venous thrombosis treatmentVenous thrombosis prophylaxis (high risk surgery)Prevention of systemic embolism from: Acute myocardial infarction Valvular heart disease Atrial fibrillation Mechanical prosthetic heart valves (2.5-3.5) IS PATIENT ON ANTICOAGULANTS? YLIST ANTICOAGULANTS COUMADINALPHA 1 [id number] 14:10:00* Test Item Value Reference Range Interpretation Comments ALPHA 1 ANTITRYPSIN (test code = [id number]) 139 mg/dL 90-200 Performed At: [facility] [facility] [address] [place], [place] [id number] TIMOTEO PENA Ph:[phone] PROTHROMBIN [id number] 07:16:00* Test Item Value Reference Range Interpretation Comments PROTHROMBIN TIME PATIENT (test code = PTP) 22.7 seconds 9.0-14.0 H INTERNATIONAL NORMAL RATIO (test code = INR) 1.9 0.8-1.2 H The therapeutic range for oral anticoagulant therapy formost indications is an international normalized ratio (INR)of between 2.0 and 3.0. The recommended therapeutic INRrange for various clinical situations is listed below: Clinical Situation INR range Pulmonary e mbolism treatment (2.0-3.0)Venous thrombosis treatmentVenous thrombosis prophylaxis (high risk surgery)Prevention of systemic embolism from: Acute myocardial infarction Valvular heart disease Atrial fibrillation Mechanical prosthetic heart valves (2.5-3.5) IS PATIENT ON ANTICOAGULANTS? YLIST ANTICOAGULANTS COUMADINPROTHROMBIN TIME 2019-01-02 18:00:00* Test Item Value Reference Range Interpretation Comments PROTHROMBIN TIME PATIENT (test code = PTP) 24.3 seconds 9.0-14.0 H INTERNATIONAL NORMAL RATIO (test code = INR) 2.1 0.8-1.2 H The therapeutic range for oral anticoagulant therapy formost indications is an international normalized ratio (INR)of between 2.0 and 3.0. The recommended therapeutic INRrange for various clinical situations is listed below: Clinical Situation INR range Pulmonary e mbolism treatment (2.0-3.0)Venous thrombosis treatmentVenous thrombosis prophylaxis (high risk surgery)Prevention of systemic embolism from: Acute myocardial infarction Valvular heart disease Atrial fibrillation Mechanical prosthetic heart valves (2.5-3.5) IS PATIENT ON ANTICOAGULANTS? YLIST ANTICOAGULANTS COUMADINCBC W/AUTO DIFF 2019-01-02 10:06:00* Test Item Value Reference Range Interpretation Comments WHITE BLOOD CELL (test code = WBC) 4.9 K/mm3 4.5-12.5 N RED BLOOD CELL (test code = RBC) 5.14 mill/mm3 4.0-5.8 N HEMOGLOBIN (test code = HGB) 16.1 gram/dL 13.0-17.5 N HEMATOCRIT (test code = HCT) 49.3 % 42.0-52.0 N MEAN CELL VOLUME (test code = MCV) 95.9 fL 80-98 N MEAN CELL HGB (test code = MCH) 31.3 picogram 27.0-33.0 N MEAN CELL HGB CONCETRATION (test code = MCHC) 32.7 gram/dL 33.0-36. 0 L RED CELL DISTRIBUTION WIDTH (test code = RDW) 14.6 % 11.6-16. 2 N RED CELL DISTRIBUTION WIDTH SD (test code = RDW-SD) 51.8 fL 37 .0-51.0 H PLATELET COUNT (test code = PLT) 156 K/mm3 150-450 N MEAN PLATELET VOLUME (test code = MPV) 9.9 fL 6.7-11.0 N NEUTROPHIL % (test code = NT%) 91.1 % 39.0-69.0 H IMMATURE GRANULOCYTE % (test code = IG%) 0.6 % 0.0-5.0 N LYMPHOCYTE % (test code = LY%) 5.7 % 25.0-55.0 L MONOCYTE % (test code = MO%) 2.6 % 0.0-10.0 N EOSINOPHIL % (test code = EO%) 0.0 % 0.0-5.0 N BASOPHIL % (test code = BA%) 0.0 % 0.0-1.0 N NUCLEATED RBC % (test code = NRBC%) 0.0 % 0-0 N NEUTROPHIL # (test code = NT#) 4.50 K/mm3 1.8-7.7 N IMMATURE GRANULOCYTE # (test code = IG#) 0.03 x10 3/uL 0-0.03 N LYMPHOCYTE # (test code = LY#) 0.28 K/mm3 1.0-5.0 L MONOCYTE # (test code = MO#) 0.13 K/mm3 0-0.8 N EOSINOPHIL # (test code = EO#) 0.00 K/mm3 0.0-0.5 N BASOPHIL # (test code = BA#) 0.00 K/mm3 0.0-0.2 N NUCLEATED RBC # (test code = NRBC#) 0.00 K/mm3 0.0-0.1 N MANUAL DIFF REQUIRED (test code = MDIFF) NO B-TYPE NATRIURETIC [id number] 09:50:00* Test Item Value Reference Range Interpretation Comments B-TYPE NATRIURETIC PEPTIDE (test code = BNP) 148.34 pgram/mL 0-100 H PROTHROMBIN [id number] 09:38:00* Test Item Value Reference Range Interpretation Comments PROTHROMBIN TIME PATIENT (test code = PTP) 29.3 seconds 9.0-14.0 H INTERNATIONAL NORMAL RATIO (test code = INR) 2.5 0.8-1.2 H The therapeutic range for oral anticoagulant therapy formost indications is an international normalized ratio (INR)of between 2.0 and 3.0. The recommended therapeutic INRrange for various clinical situations is listed below: Clinical Situation INR range Pulmonary e mbolism treatment (2.0-3.0)Venous thrombosis treatmentVenous thrombosis prophylaxis (high risk surgery)Prevention of systemic embolism from: Acute myocardial infarction Valvular heart disease Atrial fibrillation Mechanical prosthetic heart valves (2.5-3.5) IS PATIENT ON ANTICOAGULANTS? YLIST ANTICOAGULANTS COUMADINCOMPREHENSIVE METABOLIC [id number] 08:28:00* Test Item Value Reference Range Interpretation Comments SODIUM (test code = NA) 137 mmol/L 136-145 N POTASSIUM (test code = K) 4.6 mmol/L 3.5-5.1 N CHLORIDE (test code = CL) 103.0 mmol/L 98-107 N CARBON DIOXIDE (test code = CO2) 28.0 mmol/L 21-32 N ANION GAP (test code = GAP) 10.6 10-20 N GLUCOSE (test code = GLU) 122 mg/dL 74-106 H BLOOD UREA NITROGEN (test code = BUN) 22 mg/dL 7-18 H GLOMERULAR FILTRATION RATE (test code = GFR) > 60 mL/min >=60 Estimated GFR by using Modified MDRD formula.Chronic kidney disease is defined as either kidney damageor GFR <60 mL/min/1.73 m2 for >3 months. CREATININE (test code = CREAT) 1.10 mg/dL 0.7-1.3 N BUN/CREATININE RATIO (test code = BUN/CREA) 20.0 10-20 N TOTAL PROTEIN (test code = PROT) 6.4 gram/dL 6.4-8.2 N ALBUMIN (test code = ALB) 3.4 g/dL 3.4-5.0 N GLOBULIN (test code = GLOB) 3.0 gram/dL 2.7-4.2 N ALBUMIN/GLOBULIN RATIO (test code = A/G) 1.1 0.75-1.50 N CALCIUM (test code = CA) 8.4 mg/dL 8.5-10.1 L BILIRUBIN TOTAL (test code = BILT) 0.50 mg/dL 0.0-1.0 N SGOT/AST (test code = AST) 29 IUnit/L 15-37 N SGPT/ALT (test code = ALT) 41 IUnit/L 12-78 N ALKALINE PHOSPHATASE TOTAL (test code = ALKP) 79 IUnit/L 45-117 N Note change in reference range due to change in reagent. COMPREHENSIVE METABOLIC [id number] 08:14:00* Test Item Value Reference Range Interpretation Comments SODIUM (test code = NA) 137 mmol/L 136-145 N POTASSIUM (test code = K) 4.6 mmol/L 3.5-5.1 N CHLORIDE (test code = CL) 103.0 mmol/L 98-107 N CARBON DIOXIDE (test code = CO2) mmol/L 21-32 ANION GAP (test code = GAP) 10-20 GLUCOSE (test code = GLU) mg/dL 74-106 BLOOD UREA NITROGEN (test code = BUN) mg/dL 7-18 GLOMERULAR FILTRATION RATE (test code = GFR) mL/min >=60 CREATININE (test code = CREAT) mg/dL 0.7-1.3 BUN/CREATININE RATIO (test code = BUN/CREA) 10-20 TOTAL PROTEIN (test code = PROT) gram/dL 6.4-8.2 ALBUMIN (test code = ALB) g/dL 3.4-5.0 GLOBULIN (test code = GLOB) gram/dL 2.7-4.2 ALBUMIN/GLOBULIN RATIO (test code = A/G) 0.75-1.50 CALCIUM (test code = CA) mg/dL 8.5-10.1 BILIRUBIN TOTAL (test code = BILT) mg/dL 0.0-1.0 SGOT/AST (test code = AST) IUnit/L 15-37 SGPT/ALT (test code = ALT) IUnit/L 12-78 ALKALINE PHOSPHATASE TOTAL (test code = ALKP) IUnit/L 45-117 PROTHROMBIN [id number] 18:16:00* Test Item Value Reference Range Interpretation Comments PROTHROMBIN TIME PATIENT (test code = PTP) 37.1 seconds 9.0-14.0 H INTERNATIONAL NORMAL RATIO (test code = INR) 3.2 0.8-1.2 H The therapeutic range for oral anticoagulant therapy formost indications is an international normalized ratio (INR)of between 2.0 and 3.0. The recommended therapeutic INRrange for various clinical situations is listed below: Clinical Situation INR range Pulmonary e mbolism treatment (2.0-3.0)Venous thrombosis treatmentVenous thrombosis prophylaxis (high risk surgery)Prevention of systemic embolism from: Acute myocardial infarction Valvular heart disease Atrial fibrillation Mechanical prosthetic heart valves (2.5-3.5) IS PATIENT ON ANTICOAGULANTS? YLIST ANTICOAGULANTS COUMADIN- CT CHEST W/O [id number] 08:14:00 Name: RUSTAMNANCY MIKE [facility] : 1955 Age/S: 63 / M [address] [facility] Unit #: [id number] Loc: [place] [address] Phys: Riaz Drake MD Acct: [id number] Dis Date: Status: ADM IN PHONE #: [phone] Exam Date: 01/01/2019 0753 FAX #: [phone] Reason: SOB EXAMS: CPT CODE: [id number] CT CHEST W/O CONTRAST 10398 TECHNIQUE: - CT CHEST W/O CONTRAST . This exam was performed using one or more of the following dose reduction techniques: Automated exposure control, adjustment of the mA and/ or kV according to patient size or use of iterative reconstruction technique. COMPARISON: Chest x-ray 12/31/2018 HISTORY: 63 years Male SOB FINDINGS: Lungs: Atelectasis right midlung field. Mediastinum and Aria: No significant lymphadenopathy. No mediastinal or hilar mass. Median sternotomy. Pleura: No calcifications, effusion, thickening, or pneumothorax. Cardiovascular: Age appropriate. No significant abnormalities. Visualized Upper Abdomen: No significant findings. Chest wall and bony structures: No abnormalities. IMPRESSION: Atelectasis right midlung field. at 0814 Reported and signed by: Riaz Potter M.D. CC: Riaz Drake Technologist:Concepcion Lorenzo RT(R),CT CTDI: DLP: Trnscb Date/Time: 01/01/2019 (08) Jay Orig Print D/T: S: 01/01/2019 (4491) PAGE 1 Signed Report [id number] 22:48:00* Test Item Value Reference Range Interpretation Comments TROPONIN-I (test code = TROPI) <0.015 ng/mL 0-0.045 N COMMENTS TO PULP ROLLER: COLLECT 3 HOURS AFTER PREVIOUS [id number] 20:05:00* Test Item Value Reference Range Interpretation Comments TROPONIN-I (test code = TROPI) <0.015 ng/mL 0-0.045 N COMMENTS TO PULP ROLLER: COLLECT 3 HOURS AFTER PREVIOUS SAMPLEARTERIAL BLOOD [id number] 15:45:00* Test Item Value Reference Range Interpretation Comments ARTERIAL BLOOD GAS PH (test code = PHA) 7.34 7.35-7.45 L ARTERIAL BLOOD GAS PCO2 (test code = PCO2A) 44.5 mm Hg 35-45 N ARTERIAL BLOOD GAS PO2 (test code = PO2A) 261.0 mmHg 80-100 H BICARBONATE TOTAL HCO3 (test code = HCO3) 23.7 mmol/L 23.0-27.0 N BASE EXCESS (test code = LASHELL) -2.2 mmol/L -3.0-5.0 N ABG O2 SATURATION (test code = SATA) 99.1 % 90.0-98.0 H ABG TYPE (test code = TYPEA) Arterial FIO2 (test code = FIO2A) 50.0 ABG VENT MODE (test code = MODEA) BiPAP ABG VENT RESP RATE (test code = RRA) 12.0 per min ABG PEEP (test code = PEEPA) 5.0 cmH2O ABG SITE (test code = SITEA) Rt RADIAL ARTERY MODIFIED ALLENS (test code = MODALL) Yes CHECK PERFORMED HEMATOCRIT (test code = HCT/ABG) 52 % 42-52 N TOTAL HGB (test code = THB) 17.8 gram/dL 13.0-17.5 H HGB O2 SAT (test code = HBOSAT) 97.8 % 94.00-98.00 N CARBOXYHEMOGLOBIN (test code = HOHGBT) 0.7 %totalHg 0.5-1.5 N METHEMOGLOBIN (test code = METHGB) 0.6 % 0.0-1.50 N O2 CONTENT (test code = O2CT) 25.0 % vol 18.0-22.0 H B-TYPE NATRIURETIC [id number] 15:35:00* Test Item Value Reference Range Interpretation Comments B-TYPE NATRIURETIC PEPTIDE (test code = BNP) 110.84 pgram/mL 0-100 H - XR CHEST 1 [id number] 15:27:00 FAX: Jose Brunson MD [phone] [place]: St: ADM Name: NANCY BECKWITH [facility] : [birth year] Age/S: 63/M [address] [facility] Unit #: [id number] Loc: [place] [address] Phys: Jose Brunson MD Acct: [id number] Dis Date: Status: ADM IN PHONE #: [phone] Exam Date: 12/31/2018 1552 FAX #: [phone] Reason: Shortness of Breath EXAMS: CPT CODE: [id number] XR CHEST 1 V 12006 REASON FOR EXAM: Shortness of Breath Exam Order Date: 12/31/2018 2:05 PM Ordering M.D.: Jose Brunson MD PROCEDURE: - XR CHEST 1 V COMPARISON: 2 view chest x-ray December 29, 2018 FINDINGS: The lungs are hyperinflated. There is mild subsegmental atelectasis in the damian ng bases. Otherwise lungs are clear. Cardiomediastinal silhouette is mildly prominent but unchanged from the previous exam.. The mediastinal contours are within normal limits. Sternotomy wires, degenerative changes of the spine, and other musculoskeletal findings are unchanged. The visualized upper abdomen is within normal limits. IMPRESSION: Hyperinflation of the lungs may represent an air-trapping process. Please correlate clinically. No acute cardiac pulmonary findings however. Electronically Signed by Rico Barney MD on 12/31 at 1527 Reported and signed by: Rico Barney MD CC: Jose Brunson MD Technologist: Davon TOLEDO) Trnscrd Date/Time/By: 12/31/2018 (3864) : By: [email or web address] Orig Print D/T: S: 12/31/2018 (4893) PAGE 1 Signed Report BASIC METABOLIC [id number] 15:16:00* Test Item Value Reference Range Interpretation Comments SODIUM (test code = NA) 141 mmol/L 136-145 N POTASSIUM (test code = K) 4.8 mmol/L 3.5-5.1 N CHLORIDE (test code = CL) 108.0 mmol/L 98-107 H CARBON DIOXIDE (test code = CO2) 26.0 mmol/L 21-32 N ANION GAP (test code = GAP) 11.8 10-20 N GLUCOSE (test code = GLU) 99 mg/dL 74-106 N BLOOD UREA NITROGEN (test code = BUN) 17 mg/dL 7-18 N GLOMERULAR FILTRATION RATE (test code = GFR) > 60 mL/min >=60 Estimated GFR by using Modified MDRD formula.Chronic kidney disease is defined as either kidney damageor GFR <60 mL/min/1.73 m2 for >3 months. CREATININE (test code = CREAT) 1.20 mg/dL 0.7-1.3 N BUN/CREATININE RATIO (test code = BUN/CREA) 14.2 10-20 N CALCIUM (test code = CA) 8.2 mg/dL 8.5-10.1 L [id number] 15:16:00* Test Item Value Reference Range Interpretation Comments TROPONIN-I (test code = TROPI) <0.015 ng/mL 0-0.045 N [id number] 15:07:00* Test Item Value Reference Range Interpretation Comments D-DIMER (test code = DDIMER) 71.00 ng/mLFEU 0-500 N Clinical Cut-off value for D-Dimer is 500 ng/mL FEU. Comment: The [employer] D-Dimer assay is intended for use asan aid in the diagnosis of venous thromboembolism (VTE)[deep vein thrombosis (DVT) or pulmonary embolism (PE)].The measurement of D-Dimer should not be used as an aid inthe diagnosis of VTE, in patient with: -Therapeutic dose anticoagulant therapy for >24 hours -Fibrinolytic therapy within previous 7 days -Trauma or surgery within previous 4 weeks -Disseminated malignancies -Aortic aneurysm -Sepsis, severe infections, pneumonia, severe skin infections -Liver cirrhosis - BASIC METABOLIC [id number] 15:06:00* Test Item Value Reference Range Interpretation Comments SODIUM (test code = NA) 141 mmol/L 136-145 N POTASSIUM (test code = K) 4.8 mmol/L 3.5-5.1 N CHLORIDE (test code = CL) 108.0 mmol/L 98-107 H CARBON DIOXIDE (test code = CO2) mmol/L 21-32 ANION GAP (test code = GAP) 10-20 GLUCOSE (test code = GLU) mg/dL 74-106 BLOOD UREA NITROGEN (test code = BUN) mg/dL 7-18 GLOMERULAR FILTRATION RATE (test code = GFR) mL/min >=60 CREATININE (test code = CREAT) mg/dL 0.7-1.3 BUN/CREATININE RATIO (test code = BUN/CREA) 10-20 CALCIUM (test code = CA) mg/dL 8.5-10.1 [id number] 15:06:00* Test Item Value Reference Range Interpretation Comments TROPONIN-I (test code = TROPI) ng/mL 0-0.045 CBC W/O [id number] 14:54:00* Test Item Value Reference Range Interpretation Comments WHITE BLOOD CELL (test code = WBC) 8.7 K/mm3 4.5-12.5 N RED BLOOD CELL (test code = RBC) 5.38 mill/mm3 4.0-5.8 N HEMOGLOBIN (test code = HGB) 17.0 gram/dL 13.0-17.5 N HEMATOCRIT (test code = HCT) 50.3 % 42.0-52.0 N MEAN CELL VOLUME (test code = MCV) 93.5 fL 80-98 N MEAN CELL HGB (test code = MCH) 31.6 picogram 27.0-33.0 N MEAN CELL HGB CONCETRATION (test code = MCHC) 33.8 gram/dL 33.0-36. 0 N RED CELL DISTRIBUTION WIDTH (test code = RDW) 15.1 % 11.6-16. 2 N PLATELET COUNT (test code = PLT) 187 K/mm3 150-450 N MEAN PLATELET VOLUME (test code = MPV) 9.4 fL 6.7-11.0 N - XR CHEST 2 [id number] 15:30:00 FAX: LUIS ANTONIO SU NP [place]: St: REG Name: NANCY BECKWITH [facility] : [birth year] Age/S: 63/M [address] [facility] Unit #: [id number] Loc: [place] [address] Phys: LUIS ANTONIO SU NP Acct: [id number] Dis Date: Status: REG ER PHONE #: [phone] Exam Date: 12/29/2018 1455 FAX #: [phone] Reason: SOB EXAMS: CPT CODE: [id number] XR CHEST 2 V 48273 TECHNIQUE - XR CHEST 2 V . COMPARISON: Single view chest 03/30/2018 HISTORY: 63 years Male SOB FINDINGS: L ungs: Increased markings. Slight prominence of the pulmonary vascularity. Lungs are normal in volume. Mediastinum and aria: No enlargement o r other mass. Mediastinotomy. Cardiovascular structures: See abov e. Pleura/CP angles: Clear. No pneumothorax. Bones: No osseous abnormalities. Soft tissues: No abnormalities. Tubes and lines: None. Other: None. IMPRES CHENG: Increased markings. Slight prominence of the pulmonary vascularity . at 1530 Reported and signed by: Riaz Potter M.D. CC: LUIS ANTONIO GUTIERREZ NP Technologist: Mary Jo PAIGE(Mary Jo) Trnscrd Date/Time/By: 12/29/2018 (1530) : By: Jay Orig Print D/T: S: 12/29/2018 (5996) PAGE 1 Signed Report B- TYPE NATRIURETIC [id number] 15:03:00* Test Item Value Reference Range Interpretation Comments B-TYPE NATRIURETIC PEPTIDE (test code = BNP) 82.11 pgram/mL 0-100 N BASIC METABOLIC [id number] 14:48:00* Test Item Value Reference Range Interpretation Comments SODIUM (test code = NA) 140 mmol/L 136-145 N POTASSIUM (test code = K) 4.5 mmol/L 3.5-5.1 N CHLORIDE (test code = CL) 105.0 mmol/L 98-107 N CARBON DIOXIDE (test code = CO2) 29.0 mmol/L 21-32 N ANION GAP (test code = GAP) 10.5 10-20 N GLUCOSE (test code = GLU) 90 mg/dL 74-106 N BLOOD UREA NITROGEN (test code = BUN) 8 mg/dL 7-18 N GLOMERULAR FILTRATION RATE (test code = GFR) > 60 mL/min >=60 Estimated GFR by using Modified MDRD formula.Chronic kidney disease is defined as either kidney damageor GFR <60 mL/min/1.73 m2 for >3 months. CREATININE (test code = CREAT) 1.10 mg/dL 0.7-1.3 N BUN/CREATININE RATIO (test code = BUN/CREA) 7.3 10-20 L CALCIUM (test code = CA) 8.4 mg/dL 8.5-10.1 L [id number] 14:48:00* Test Item Value Reference Range Interpretation Comments TROPONIN-I (test code = TROPI) <0.015 ng/mL 0-0.045 N BASIC METABOLIC [id number] 14:39:00* Test Item Value Reference Range Interpretation Comments SODIUM (test code = NA) 140 mmol/L 136-145 N POTASSIUM (test code = K) 4.5 mmol/L 3.5-5.1 N CHLORIDE (test code = CL) 105.0 mmol/L 98-107 N CARBON DIOXIDE (test code = CO2) mmol/L 21-32 ANION GAP (test code = GAP) 10-20 GLUCOSE (test code = GLU) mg/dL 74-106 BLOOD UREA NITROGEN (test code = BUN) mg/dL 7-18 GLOMERULAR FILTRATION RATE (test code = GFR) mL/min >=60 CREATININE (test code = CREAT) mg/dL 0.7-1.3 BUN/CREATININE RATIO (test code = BUN/CREA) 10-20 CALCIUM (test code = CA) mg/dL 8.5-10.1 [id number] 14:39:00* Test Item Value Reference Range Interpretation Comments TROPONIN-I (test code = TROPI) ng/mL 0-0.045 CBC W/O [id number] 14:35:00* Test Item Value Reference Range Interpretation Comments WHITE BLOOD CELL (test code = WBC) 4.7 K/mm3 4.5-12.5 N RED BLOOD CELL (test code = RBC) 5.46 mill/mm3 4.0-5.8 N HEMOGLOBIN (test code = HGB) 17.2 gram/dL 13.0-17.5 N HEMATOCRIT (test code = HCT) 51.9 % 42.0-52.0 N MEAN CELL VOLUME (test code = MCV) 95.1 fL 80-98 N MEAN CELL HGB (test code = MCH) 31.5 picogram 27.0-33.0 N MEAN CELL HGB CONCETRATION (test code = MCHC) 33.1 gram/dL 33.0-36. 0 N RED CELL DISTRIBUTION WIDTH (test code = RDW) 15.1 % 11.6-16. 2 N PLATELET COUNT (test code = PLT) 159 K/mm3 150-450 N MEAN PLATELET VOLUME (test code = MPV) 9.3 fL 6.7-11.0 N Activated Partial Thromboplast [id number] 05:21:00* Test Item Value Reference Range Interpretation Comments Activated Partial Thromboplast Time (test code = 31394-8) 58.3 23.8-35.5 H VERIFIED PREVIOUS RESULTSSh[facility] Southodium Level 2018-06-12 05:17:00* Test Item Value Reference Range Interpretation Comments Sodium Level (test code = 2951-2) 140 136-145 [facility]assium Tehea5232-59-37 05:17:00* Test Item Value Reference Range Interpretation Comments Potassium Level (test code = 2823-3) 3.5 3.5-5.1 [facility] PasoChloride Ddrss8283-01-55 05:17:00* Test Item Value Reference Range Interpretation Comments Chloride Level (test code = 2075-0) 106 98-107 [facility] PasoCarbon Dioxide Uiqle6205-46-53 05:17:00* Test Item Value Reference Range Interpretation Comments Carbon Dioxide Level (test code = 2028-9) 28 22-29 [facility] PasoAnion [id number] 05:17:00* Test Item Value Reference Range Interpretation Comments Anion Gap (test code = 70921-1) 9.5 8-16 [facility] PasoBlood Urea Xpcqcwcr0799-63-84 05:17:00* Test Item Value Reference Range Interpretation Comments Blood Urea Nitrogen (test code = 3094-0) 12 7- [facility] PasoCreatinine2018-10-29 05:17:00* Test Item Value Reference Range Interpretation Comments Creatinine (test code = 2160-0) 0.96 0.72-1.25 [facility] PasoBUN/Creatinine Bliao9862-24-22 05:17:00* Test Item Value Reference Range Interpretation Comments BUN/Creatinine Ratio (test code = 3097-3) 13 02-06 [facility] PasoEstimat Glomerular Filtration Rate 2018-06-12 05:17:00* Test Item Value Reference Range Interpretation Comments Estimat Glomerular Filtration Rate (test code = 631500067) > 60 >60 Ranges were taken from the National Kidney Disease Education Program and the [facility] Kid[facility] Foundation literature.Reference ranges:60 or greater: Hvccwj77-95 ( for 3 consecutive months): Chronic kidney disease 15 or less: Kidney failureUniversity [facility] Center of El PasoGlucose Zgcua4159-70-89 05:17:00* Test Item Value Reference Range Interpretation Comments Glucose Level (test code = TMM6824) 99 74-118 [facility] PasoCalcium Cuxfz0022-54-46 05:17:00* Test Item Value Reference Range Interpretation Comments Calcium Level (test code = 08398-6) 8.6 8.4-10.2 [facility] PasoMagnesium Rjhyk5414-96-21 05:17:00* Test Item Value Reference Range Interpretation Comments Magnesium Level (test code = 97784-9) 2.0 1.3-2.1 [facility] PasoProthrombin Pamn6977-06-36 05:10:00* Test Item Value Reference Range Interpretation Comments Prothrombin Time (test code = 5902-2) 14.4 11.9-14.5 [facility] PasoProthromb Time International Ratio 2018-06-12 05:10:00* Test Item Value Reference Range Interpretation Comments Prothromb Time International Ratio (test code = 6301-6) 1.03 Oral Anticoagulant Therapy INR Values:1. Low Intensity Therapy 1.5 - 2.02 . Moderate Intensity Therapy 2.0 - 3.03. High Intensity Therapy(1) 2.5 - 3. 54. High Intensity Therapy(2) 3.0 - 4.05. Panic Value INR > 5.0 [facility] PasoWhite Blood Vfxfe9043-58-92 05:02:00* Test Item Value Reference Range Interpretation Comments White Blood Count (test code = 6690-2) 4.94 4.8-10.8 [facility] PasoRed Blood Eavtg6748-82-74 05:02:00* Test Item Value Reference Range Interpretation Comments Red Blood Count (test code = 789-8) 4.51 4.3-5.7 [facility] PasoHemoglobin2018-10-29 05:02:00* Test Item Value Reference Range Interpretation Comments Hemoglobin (test code = 29548-2) 14.1 14.0-18.0 [facility] PasoHematocrit2018-10-29 05:02:00* Test Item Value Reference Range Interpretation Comments Hematocrit (test code = 4544-3) 42.1 38.2-49.6 [facility] PasoMean Corpuscular Vbetwn7859-84-66 05:02:00* Test Item Value Reference Range Interpretation Comments Mean Corpuscular Volume (test code = 787-2) 93.3 81-99 [facility] PasoMean Corpuscular Dipcelkagw3260-00-93 05:02:00* Test Item Value Reference Range Interpretation Comments Mean Corpuscular Hemoglobin (test code = 785-6) 31.3 28-32 [facility] PasoMean Corpuscular Hemoglobin Concent 2018-06-12 05:02:00* Test Item Value Reference Range Interpretation Comments Mean Corpuscular Hemoglobin Concent (test code = 786-4) 33.5 31-35 [facility] PasoRed Cell Distribution Udpce3025-58-94 05:02:00* Test Item Value Reference Range Interpretation Comments Red Cell Distribution Width (test code = 08806-2) 14.7 11.7 -14.4 H [facility] PasoPlatelet Wzsav3092-90-09 05:02:00* Test Item Value Reference Range Interpretation Comments Platelet Count (test code = 777-3) 163 140-360 [facility] PasoNeutrophils (%) (Auto)2018-06-12 05:02:00 * Test Item Value Reference Range Interpretation Comments Neutrophils (%) (Auto) (test code = 23542-4) 62.4 38.7-80.0 [facility] PasoLymphocytes (%) (Auto)2018-06-12 05:02:00 * Test Item Value Reference Range Interpretation Comments Lymphocytes (%) (Auto) (test code = 736-9) 23.3 18.0-39.1 [facility] PasoMonocytes (%) (Auto)2018-06-12 05:02:00* Test Item Value Reference Range Interpretation Comments Monocytes (%) (Auto) (test code = 5905-5) 9.5 4.4-11.3 [facility] PasoEosinophils (%) (Auto)2018-06-12 05:02:00 * Test Item Value Reference Range Interpretation Comments Eosinophils (%) (Auto) (test code = 713-8) 4.0 0.0-6.0 [facility] PasoBasophils (%) (Auto)2018-06-12 05:02:00* Test Item Value Reference Range Interpretation Comments Basophils (%) (Auto) (test code = 706-2) 0.6 0.0-1.0 [facility] PasoIM GRANULOCYTES %2018-06-12 05:02:00* Test Item Value Reference Range Interpretation Comments IM GRANULOCYTES % (test code = IM GRANULOCYTES %) 0.2 0.0- 1.0 [facility] PasoNeutrophils # (Auto)2018-06-12 05:02:00* Test Item Value Reference Range Interpretation Comments Neutrophils # (Auto) (test code = 751-8) 3.1 2.1-6.9 [facility] PasoLymphocytes # (Auto)2018-06-12 05:02:00* Test Item Value Reference Range Interpretation Comments Lymphocytes # (Auto) (test code = 59865-1) 1.2 1.0-3.2 [facility] PasoMonocytes # (Auto)2018-06-12 05:02:00* Test Item Value Reference Range Interpretation Comments Monocytes # (Auto) (test code = 742-7) 0.5 0.2-0.8 [facility] PasoEosinophils # (Auto)2018-06-12 05:02:00* Test Item Value Reference Range Interpretation Comments Eosinophils # (Auto) (test code = 711-2) 0.2 0.0-0.4 [facility] PasoBasophils # (Auto)2018-06-12 05:02:00* Test Item Value Reference Range Interpretation Comments Basophils # (Auto) (test code = 704-7) 0.0 0.0-0.1 [facility] PasoAbsolute Immature Granulocyte (auto 2018-06-12 05:02:00* Test Item Value Reference Range Interpretation Comments Absolute Immature Granulocyte (auto (laura t code = Absolute Immature Granulocyte (auto) 0.01 0-0.1 [facility] PasoUS ABDOMEN KPFRZAD3913-88-30 16:18:00 [place] [address] Patient Name: NANCY EASTON MR #: [id number] : 1955 Age/Sex: 63/M Req #: [id number] Adm Physician: HERBERT GARCIA MD Ordered by: Randi Kingston [employer]UC[employer] DRIVER Report #: [id number] Location: MED/SURG2 Room/Bed: 200-1 Procedure: [id number] U S/US ABDOMEN LIMITED Exam Date: 06/08/18 Exam Time: 1535 REPORT STATUS: Signed EXAM: US ABDOMEN LIMITED INDICATION: ABD ABSCESS? COMPARISON: CT abdom en and pelvis 06/06/2018 TECHNIQUE: Transverse and sagittal images were perfor med of the anterior and lower abdominal wall. FINDINGS: 1.0 x 0.7 x 1. 8 cm nonvascular hypoechoic structure in the lower anterior abdominal wall at midline. IMPRESSION: Echographic findings may correlate with the fat -containing umbilical hernia seen on CT abdomen and pelvis on 06/06/2018. No n ew fluid collections. Signed by: Dr. Esha Bettencourt M.D. on 06/08 4:21 PM Dictated By: ESHA BETTENCOURT MD Electronically Sig yves By: ESHA BETTENCOURT MD on 06/08/18 1621 Transcribed By: REBECCA on 06/08/18 1621 COPY TO: RANDI KINGSTON NP Triglycerides Level 2018-06-07 06:02:00* Test Item Value Reference Range Interpretation Comments Triglycerides Level (test code = 2571-8) 86 0-149 [facility] PasoCholesterol Svofh0186-35-65 06:02:00* Test Item Value Reference Range Interpretation Comments Cholesterol Level (test code = 2093-3) 106 0-199 Less than 200 mg/dL Low Zhzq162 - 239 mg/dL Borderline Vaxc706 m g/dl and greater High Risk [facility] PasoLDL Nsbclxvawlf6797-42-12 06:02:00* Test Item Value Reference Range Interpretation Comments LDL Cholesterol (test code = 2089-1) 57 60-130 L [facility] PasoHDL Wsmdlltswse6280-28-01 06:02:00* Test Item Value Reference Range Interpretation Comments HDL Cholesterol (test code = 2085-9) 32 40-60 L [facility] PasoCholesterol/HDL Fsqzl1576-92-34 06:02:00 * Test Item Value Reference Range Interpretation Comments Cholesterol/HDL Ratio (test code = 9830-1) 3.3 3.9-4.7 L [facility] PasoCHEST SINGLE (PORTABLE)2018-06-06 16:01:00 [facility] [address] [place] [address] Patient Name: NANCY EASTON MR #: [id number] : 1955 Age/Sex: 63/M Req #: [id number] Adm Physician: Ordered by: TEMITOPE ATKINSON [employer] DRIVER Report #: [id number] Location: ER Room/Bed: Procedure: [id number] D X/CHEST SINGLE (PORTABLE) Exam Date: Exam Time: REPORT [...] acute osseous lesion. Soft tissues are unremarkable. St atus post median sternotomy. Surgical clips project over the left neck. UPPER ABDOMEN: No free air under the diaphragm. IMPRESSION: No acute ra diographic abnormality. Signed by: Dr. Bashir Escobedo MD on 06/06/2018 4:21 P M Dictated By: BASHIR ESCOBEDO MD 20 Transcribed By: REBECCA on 06/06/181620 COPY TO: Kyree ATKINSON NP Creatine Kinase [id number] 15:55:00* Test Item Value Reference Range Interpretation Comments Creatine Kinase MB (test code = 90686-9) 1.00 0-5.0 [facility] PasoTroponin [id number] 15:55:00* Test Item Value Reference Range Interpretation Comments Troponin I (test code = YSJ0790) < 0.001 0-0.300 [facility] PasoUrine AYU5105-69-28 15:49:00* Test Item Value Reference Range Interpretation Comments Urine WBC (test code = 5821-4) NONE 0-5 [facility] PasoUrine [id number] 15:49:00* Test Item Value Reference Range Interpretation Comments Urine RBC (test code = 46106-2) >50 0-5 H [facility] PasoUrine Wwclpubv1691-42-84 15:49:00* Test Item Value Reference Range Interpretation Comments Urine Bacteria (test code = 43246-1) FEW NONE [facility] PasoUrine Epithelial Fmslm5747-52-14 15:49:00 * Test Item Value Reference Range Interpretation Comments Urine Epithelial Cells (test code = 71359-3) NONE NONE [facility] PasoCT ABDOMEN/PELVIS [id number] 15:49:00 [facility] [address] [place] [address] Patient Name: NANCY EASTON MR #: [id number] : 1955 Age/Sex: 63/M Req #: [id number] Adm Physician: Ordered by: TEMITOPE ATKINSON [employer] DRIVER Report #: [id number] Location: ER Room/Bed: Procedure: [id number] C T/CT ABDOMEN/PELVIS WO Exam Date: Exam Time: REPORT STATUS: Signed EXAMINATION: CT of the abdomen and pelvis without contrast. TECHNIQUE: Helical CT images of the abdomen and pelvis were performed from the lung bases to the lesser tro chanters. No intravenous contrast was given per renal stone protocol. Rodriguez l and sagittal reformatted images were obtained.Dose modulation, iterative rec onstruction, and/or weight based adjustment of the mA/kV was utilized to reduc e the radiation dose to as low as reasonably achievable. COMPARISON: No ne. CLINICAL HISTORY:Abdominal pain, hematuria DISCUSSION: ABSENC E OF INTRAVENOUS CONTRAST DECREASES SENSITIVITY FOR DETECTION OF FOCAL LESIONS AND VASCULAR PATHOLOGY. ABDOMEN/PELVIS: LOWER THORAX: Unremarkable. HEPATOBILIARY:No focal hepatic lesions. No biliary ductal dilation. The gallbladder is normal. SPLEEN: No splenomegaly. PANCREAS: No focal ma sses or ductal dilatation. ADRENALS: No adrenal nodules. KIDNEYS/URETE RS: No hydronephrosis, stones, or solid mass lesions. PELVIC ORGANS/BLADDER : The bladder is normal. PERITONEUM/RETROPERITONEUM: No free air or fluid . LYMPH NODES: No intra-abdominal,retroperitoneal, pelvic or inguinal lym phadenopathy. VESSELS: Limited evaluation GI TRACT: No distention or w all thickening. BONES AND SOFT TISSUES: No bony destructive lesions. No so ft tissue abnormalities. IMPRESSION: No renal calculi. No CT find ing to explain patient's hematuria. Signed by: Dr. Luz Marina Holguin M.D. on 06/06/2018 3:56 PM Dictated By: LUZ MARINA HOLGUIN MD Electronically Tatyana d By: LUZ MARINA HOLGUIN MD on 06/06/181555 Transcribed By: REBECCA on 06/06/181555 COPY TO: TEMITOPE ATKINSON NP Total Vfjygxmqd8210-82-12 15:43:00* Test Item Value Reference Range Interpretation Comments Total Bilirubin (test code = 1975-2) 0.8 0.2-1.2 [facility] PasoAspartate Amino Transf (AST/SGOT) 2018-06-06 15:43:00* Test Item Value Reference Range Interpretation Comments Aspartate Amino Transf (AST/SGOT) (test code = Aspartate Amino Transf (AST/SGOT)) 26 5-34 [facility] PasoAlanine Aminotransferase (ALT/SGPT) 2018-06-06 15:43:00* Test Item Value Reference Range Interpretation Comments Alanine Aminotransferase (ALT/SGPT) (test code = 1742-6) 17 0-55 [facility] PasoTotal Iwrlnku0284-66-23 15:43:00* Test Item Value Reference Range Interpretation Comments Total Protein (test code = 2885-2) 6.2 6.5-8.1 L [facility] PasoAlbumin2018-10-23 15:43:00* Test Item Value Reference Range Interpretation Comments Albumin (test code = 1751-7) 3.4 3.5-5.0 L [facility] PasoGlobulin2018-10-23 15:43:00* Test Item Value Reference Range Interpretation Comments Globulin (test code = 82563-0) 2.8 2.3-3.5 [facility] PasoAlbumin/Globulin Aydbd5835-40-56 15:43:00 * Test Item Value Reference Range Interpretation Comments Albumin/Globulin Ratio (test code = 1759-0) 1.2 0.8-2.0 [facility] PasoAlkaline Rvtzibbuztr7499-63-47 15:43:00* Test Item Value Reference Range Interpretation Comments Alkaline Phosphatase (test code = 6768-6) 109 40-150 [facility] PasoCreatine Tbwlwz1362-39-08 15:43:00* Test Item Value Reference Range Interpretation Comments Creatine Kinase (test code = 2157-6) 43 30-200 [facility] PasoLipase2018-10-23 15:43:00* Test Item Value Reference Range Interpretation Comments Lipase (test code = 3040-3) 14 8-78 [facility] PasoUrine Awahq1266-64-08 15:35:00* Test Item Value Reference Range Interpretation Comments Urine Color (test code = 5778-6) YELLOW YELLOW [facility] PasoUrine Xxnbucj7405-27-08 15:35:00* Test Item Value Reference Range Interpretation Comments Urine Clarity (test code = 97675-2) SL CLOUDY CLEAR H [facility] PasoUrine Specific Whdgitm0779-74-36 15:35:00 * Test Item Value Reference Range Interpretation Comments Urine Specific Cullen (test code = 5811-5) 1.030 1.010-1.02 5 H [facility] PasoUrine cN9671-91-93 15:35:00* Test Item Value Reference Range Interpretation Comments Urine pH (test code = 29225-1) 5 5-7 [facility] PasoU[facility] Leukocyte Jiohkouu6965-51-29 15:35:00* Test Item Value Reference Range Interpretation Comments Urine Leukocyte Esterase (test code = 5799-2) NEGATIVE NEGATIVE [facility] Xiqtclz5170-67-03 15:35:00* Test Item Value Reference Range Interpretation Comments Urine Nitrite (test code = 37745-5) NEGATIVE NEGATIVE [facility] Zvdlryh0067-50-37 15:35:00* Test Item Value Reference Range Interpretation Comments Urine Protein (test code = 5804-0) TRACE NEGATIVE H [facility] PasoUrine Glucose (UA)2018-06-06 15:35:00* Test Item Value Reference Range Interpretation Comments Urine Glucose (UA) (test code = 2349-9) NEGATIVE NEGATIVE [facility] PasoUrine Hftbghs9223-42-36 15:35:00* Test Item Value Reference Range Interpretation Comments Urine Ketones (test code = 16408-1) NEGATIVE NEGATIVE [facility] Krcdbehwahwn7159-29-35 15:35:00* Test Item Value Reference Range Interpretation Comments Urine Urobilinogen (test code = 01131-4) 0.2 0.2-1 [facility] PasoUrine Zndowtorw6229-93-45 15:35:00* Test Item Value Reference Range Interpretation Comments Urine Bilirubin (test code = 1978-6) NEGATIVE NEGATIVE [facility] Nsmze8826-43-87 15:35:00* Test Item Value Reference Range Interpretation Comments Urine Blood (test code = 81224-2) 4+ NEGATIVE H [facility]
--- NOTE | 2020-04-26 20:12 | Emergency Department Note ---
History of Present Illnes History of Present Illness Chief Complaint: Extremity Trauma/Pain History of Present Illness This is a 65 year old male with b/l LE edema. Arrival Mode: Car Onset (how long ago): day(s) Location: b/l LE L greater than R Radiation: Reports extremity Severity: moderate Onset quality: gradual Duration (how long): day(s) Timing of current episode: constant Progression: worsening Chronicity: chronic Context: Denies recent illness, Denies recent surgery, Denies recent immobilization, Denies recent travel, Denies trauma/injury, Denies new medications, Denies hx of DVT/PE, Denies non-compliance w/ medications, Denies other Relieving factors: rest Exacerbating factors: movement Associated symptoms: Denies denies other symptoms, Denies confusion, Denies chest pain, Denies cough, Denies diaphoresis, Denies fever/chills, Denies headaches, Denies loss of appetite, Denies malaise, Denies nausea/vomiting, Denies rash, Denies seizure, Denies shortness of breath, Denies syncope, Denies weakness, Denies other Treatments prior to arrival: none Previous service: one or more referrals, re-evaluation Past Medical/Family History Physician Review I have reviewed the patient's past medical and family history. Any updates have been documented here. 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 CARDIAC STENTS Social History Smoking Cessation: Never Smoker Alcohol Use: None Any Illegal Drug Use: No Other Last Tetanus: UTD Review of Systems Review of Systems Constitutional: Reports no symptoms EENTM: Reports no symptoms Cardiovascular: Denies chest pain Respiratory: Reports no symptoms Gastrointestinal: Reports no symptoms Genitourinary: Reports no symptoms Musculoskeletal: Reports no symptoms Integumentary: Reports change in color, Reports poor turgor Neurological: Reports no symptoms Psychological: Reports no symptoms Endocrine: Reports no symptoms Hematological/Lymphatic: Reports no symptoms Physical Exam Related Data Allergies: Coded Allergies: No Known Allergies (Unverified , 12/25/18) Triage Vital Signs Date Time Temp Pulse Resp B/P (MAP) Pulse Ox O2 Delivery O2 Flow Rate FiO2 04/26/20 22:47 100 04/26/20 19:58 98.4 73 20 156/61 Room Air Vital signs reviewed: Yes Physical Exam CONSTITUTIONAL Constitutional: Present well-developed, Present well-nourished HENT HENT: Present normocephalic, Present atraumatic, Present oropharynx clear/moist, Present nose normal HENT L/R: Present left ext ear normal, Present right ext ear normal EYES Eyes: Reports PERRL, Reports conjunctivae normal NECK Neck: Present ROM normal PULMONARY Pulmonary: Present effort normal, Present breath sounds normal CARDIOVASCULAR Cardiovascular: Present capillary refill normal, Present palpable pulses, Present weak pulses, Present LLE edema, Present RLE edema, Present other (multiple varicosities . 1 + pedal edema b/l ) GASTROINTESTINAL Abdominal: Present soft, Present nontender, Present bowel sounds normal GENITOURINARY Genitourinary: Present exam deferred SKIN Skin: Present warm, Present dry MUSCULOSKELETAL Musculoskeletal: Present ROM normal NEUROLOGICAL Neurological: Present alert, Present oriented x 3, Present no gross motor or sensory deficits PSYCHOLOGICAL Psychological: Present mood/affect normal, Present judgement normal Results Laboratory Lab results reviewed: Yes Laboratory comments BNP elevated Imaging Imaging results reviewed: Yes Impressions [place] [address] Patient Name: NANCY EASTON MR #: [id number] : 1955 Age/Sex: 65/M Req #: [id number] Adm Physician: Ordered by: TEMITOPE HOWARD DO Report #: [id number] Location: ER Room/Bed: Procedure: [id number] DX/CHEST SINGLE (PORTABLE) Exam Date: 04/26/20 Exam Time: 2029 REPORT STATUS: Signed EXAMINATION: CHEST SINGLE (PORTABLE) INDICATION: Leg swelling COMPARISON: Chest x-ray 06/06/2018 FINDINGS: TUBES and LINES: None. LUNGS: Normal lung volumes. No consolidations. Subtle prominence of interstitial lung markings. PLEURA: No pleural effusion or pneumothorax. HEART AND MEDIASTINUM: Cardiac size is mildly enlarged. Prominent lower paramediastinal fat. BONES AND SOFT TISSUES: Sternotomy wires. No acute osseous lesion. Surgical clips in the left lower neck. UPPER ABDOMEN: No free air under the diaphragm. IMPRESSION: Mild cardiomegaly, subtle prominence of interstitial lung markings can be due to mild interstitial edema.. Signed by: Richard Chery DO on 04/26/2020 9:46 PM Dictated By: RICHARD CHERY DO 43 Transcribed By: REBECCA on 04/26/202145 COPY TO: TEMITOPE HOWARD DO~ Assessment & Plan Medical Decision Making MDM Diff Dx: celluliitis, PVD, PAD, DVT, arterial thrombosis, CHF Assessment & Plan Final Impression: (1) Venous insufficiency (2) Pedal edema Home Meds Reported Medications [Vitamin D] No Conflict Check, [address] UNITS PO UD WEEKLY 01/21/20 Zolpidem Tartrate (ZOLPIDEM TARTRATE) 5 Mg Tablet, 10 MG PO HS PRN for SLEEP, #30 TAB 01/21/20 Warfarin Sodium (WARFARIN SODIUM) 3 Mg Tablet, 3 MG PO DAILY, #7 TAB 10/29/19 Atenolol (ATENOLOL) 50 Mg Tablet, 50 MG PO DAILY 10/27/19 Pravastatin Sodium (PRAVASTATIN SODIUM) 40 Mg Tablet, 40 MG PO HS 06/06/18 TEMITOPE HOWARD DO Apr 26, 2020 20:11
[2020-04-26] MEDS ORDERED: ASPIRIN 81 MG CHEW TAB PO ONE (20:15)
[2020-04-26 20:30] LABS: BASOPHILS # (AUTO) 0.1 (0.0-0.1); BASOPHILS % 1.2 % (0.0-1.0); EOSINOPHILS # (AUTO) 0.1 (0.0-0.4); EOSINOPHILS % 1.9 % (0.0-6.0); HEMATOCRIT 46.7 % (38.2-49.6); HEMOGLOBIN 15.6 g/dL (14.0-18.0); LYMPHOCYTES # (AUTO) 0.9 (1.0-3.2); LYMPHOCYTES % 18.1 % (18.0-39.1); MEAN CORPUSCULAR HEMOGLOBIN 34.7 pg (28-32); MEAN CORPUSCULAR HGB CONC 33.4 g/dL (31-35); MONOCYTES # (AUTO) 0.4 (0.2-0.8); MONOCYTES % 8.7 % (4.4-11.3); NEUTROPHILS # (AUTO) 3.4 (2.1-6.9); NEUTROPHILS % 69.9 % (38.7-80.0); PLATELET COUNT 139 x10e3/uL (140-360); RED BLOOD COUNT 4.49 x10e6/uL (4.3-5.7); RED CELL DISTRIBUTION WIDTH 13.5 % (11.7-14.4)
[2020-04-26 20:51] LABS: ALANINE AMINOTRANSFERASE 11 IU/L (0-55); ALBUMIN 3.4 g/dL (3.5-5.0); ALBUMIN/GLOBULIN RATIO 1.6 (0.8-2.0); ALKALINE PHOSPHATASE 88 IU/L (40-150); ANION GAP 16.9 mmol/L (8-16); BLOOD UREA NITROGEN 7 mg/dL (7-26); BUN/CREATININE RATIO 8 (6-25); CALCIUM 8.2 mg/dL (8.4-10.2); CARBON DIOXIDE 26 mmol/L (22-29); CHLORIDE 103 mmol/L (98-107); CREATINE KINASE 21 IU/L (30-200); CREATININE, SERUM 0.92 mg/dL (0.72-1.25); EST GLOMERULAR FILTRATION RATE > 60 ML/MIN (60-); GLUCOSE 139 mg/dL (74-118); POTASSIUM 3.9 mmol/L (3.5-5.1); SODIUM 142 mmol/L (136-145)
[2020-04-26] MEDS ORDERED: MORPHINE SULFATE INJ 4 MG/ML INJ 1ML IV STA (21:14)
[2020-04-26] MEDS ORDERED: ONDANSETRON HCL INJ 2MG/ML 2ML 2 MG/ML VIAL IV STA (21:14)
--- NOTE | 2020-04-26 21:49 | Diagnostic Imaging Report ---
EXAMINATION: CHEST SINGLE (PORTABLE) INDICATION: Leg swelling COMPARISON: Chest x-ray 06/06/2018 FINDINGS: TUBES and LINES: None. LUNGS: Normal lung volumes. No consolidations. Subtle prominence of interstitial lung markings. PLEURA: No pleural effusion or pneumothorax. HEART AND MEDIASTINUM: Cardiac size is mildly enlarged. Prominent lower paramediastinal fat. BONES AND SOFT TISSUES: Sternotomy wires. No acute osseous lesion. Surgical clips in the left lower neck. UPPER ABDOMEN: No free air under the diaphragm. IMPRESSION: Mild cardiomegaly, subtle prominence of interstitial lung markings can be due to mild interstitial edema.. Signed by: Richard Chery DO on 04/26/2020 9:46 PM
== END 2020-04-26 23:01 | disposition home or self-care (01) ==
LOC: ER 20:07
DX: R60.9 Edema, unspecified (principal); I87.2 Venous insufficiency (chronic) (peripheral); I70.8 Atherosclerosis of other arteries; I10 Essential (primary) hypertension; E78.5 Hyperlipidemia, unspecified; J44.9 Chronic obstructive pulmonary disease, unspecified; Z95.5 Presence of coronary angioplasty implant and graft; Z96.652 Presence of left artificial knee joint
CPT/HCPCS: 36415; 71045; 80053; 82550; 82553; 83880; 84484; 85025; 93925; 93970; 99284

== ENCOUNTER 2021-01-20 14:43 | Inpatient (IN) | payer MEDICARE ==
[~2021-01-20] VITALS: Ht 190.5 cm; Wt 92.1 kg
[2021-01-20 14:58] LABS: BASOPHILS % 1.2 % (0.0-1.0); EOSINOPHILS # (AUTO) 0.1 (0.0-0.4); EOSINOPHILS % 2.9 % (0.0-6.0); HEMATOCRIT 45.4 % (38.2-49.6); HEMOGLOBIN 15.9 g/dL (14.0-18.0); LYMPHOCYTES # (AUTO) 0.9 (1.0-3.2); LYMPHOCYTES % 25.3 % (18.0-39.1); MEAN CORPUSCULAR HEMOGLOBIN 34.3 pg (28-32); MEAN CORPUSCULAR VOLUME 98.1 fL (81-99); MONOCYTES # (AUTO) 0.3 (0.2-0.8); MONOCYTES % 8.7 % (4.4-11.3); NEUTROPHILS # (AUTO) 2.1 (2.1-6.9); NEUTROPHILS % 61.6 % (38.7-80.0); PLATELET COUNT 144 x10e3/uL (140-360); RED BLOOD COUNT 4.63 x10e6/uL (4.3-5.7); RED CELL DISTRIBUTION WIDTH 15.3 % (11.7-14.4)
[2021-01-20] MEDS ORDERED: SODIUM CHLORIDE 0.9% 1000ML 1,000 ML IV SCH (15:00)
[2021-01-20] MEDS ORDERED: MAGNESIUM SULFATE 2GM/50ML 50 ML IV ONE (15:15)
[2021-01-20 15:18] LABS: ALANINE AMINOTRANSFERASE 16 IU/L (0-55); ALBUMIN 3.2 g/dL (3.5-5.0); ALBUMIN/GLOBULIN RATIO 1.2 (0.8-2.0); ALKALINE PHOSPHATASE 100 IU/L (40-150); ANION GAP 16.9 mmol/L (8-16); BLOOD UREA NITROGEN 8 mg/dL (7-26); BUN/CREATININE RATIO 9 (6-25); CALCIUM 8.2 mg/dL (8.4-10.2); CARBON DIOXIDE 28 mmol/L (22-29); CHLORIDE 100 mmol/L (98-107); CREATININE, SERUM 0.94 mg/dL (0.72-1.25); EST GLOMERULAR FILTRATION RATE > 60 ML/MIN (60-); GLUCOSE 125 mg/dL (74-118); SODIUM 142 mmol/L (136-145)
[2021-01-20 15:20] LABS: POTASSIUM 2.9 mmol/L (3.5-5.1)
[2021-01-20] MEDS ORDERED: POTASSIUM CHLORIDE 20 MEQ TAB CR PO STA (15:46)
[2021-01-20 15:47] LABS: MAGNESIUM 1.8 MG/DL (1.3-2.1); PHOSPHORUS 2.2 MG/DL (2.3-4.7)
[2021-01-20] MEDS ORDERED: POTASSIUM CHLORIDE 20MEQ/100ML 200 ML IV ONE (16:00)
[2021-01-20] MEDS ORDERED: SODIUM CHLORIDE 0.9% 500ML 500 ML ONE (17:34)
[2021-01-20 22:32] VITALS: BP 157/49
[2021-01-20] MEDS ORDERED: INFLUENZA VIRUS VAC SPLIT INJ 0.5 ML SYR IM SCH (22:45)
[2021-01-20 23:04] VITALS: BP 157/49
[2021-01-20 23:55] VITALS: BP 160/64
[2021-01-21] VITALS (8 sets, daily range): BP systolic 137–159; BP diastolic 57–64
[2021-01-21 06:34] LABS: BASOPHILS % 0.8 % (0.0-1.0); EOSINOPHILS # (AUTO) 0.1 (0.0-0.4); EOSINOPHILS % 2.2 % (0.0-6.0); HEMATOCRIT 43.1 % (38.2-49.6); HEMOGLOBIN 14.8 g/dL (14.0-18.0); LYMPHOCYTES # (AUTO) 0.9 (1.0-3.2); LYMPHOCYTES % 23.9 % (18.0-39.1); MEAN CORPUSCULAR HEMOGLOBIN 34.1 pg (28-32); MEAN CORPUSCULAR HGB CONC 34.3 g/dL (31-35); MEAN CORPUSCULAR VOLUME 99.3 fL (81-99); MONOCYTES # (AUTO) 0.4 (0.2-0.8); MONOCYTES % 9.5 % (4.4-11.3); NEUTROPHILS # (AUTO) 2.3 (2.1-6.9); NEUTROPHILS % 63.3 % (38.7-80.0); PLATELET COUNT 123 x10e3/uL (140-360); RED BLOOD COUNT 4.34 x10e6/uL (4.3-5.7)
[2021-01-21 06:55] LABS: ANION GAP 14.4 mmol/L (8-16); BLOOD UREA NITROGEN 8 mg/dL (7-26); BUN/CREATININE RATIO 8 (6-25); CALCIUM 7.9 mg/dL (8.4-10.2); CARBON DIOXIDE 29 mmol/L (22-29); CHLORIDE 102 mmol/L (98-107); CREATININE, SERUM 0.96 mg/dL (0.72-1.25); EST GLOMERULAR FILTRATION RATE > 60 ML/MIN (60-); GLUCOSE 93 mg/dL (74-118); POTASSIUM 3.4 mmol/L (3.5-5.1); SODIUM 142 mmol/L (136-145)
[2021-01-21] MEDS ORDERED: CEFTRIAXONE 2 GM/DEXT 100 ML 2 GM/100 ML ML IV SCH (09:15)
[2021-01-21] MEDS ORDERED: POTASSIUM CHLORIDE 10MEQ EA PO ONE (09:15)
[2021-01-21] MEDS ORDERED: ALBUTEROL/IPRATROPIUM 3 ML NEB NEB PRN (09:15)
[2021-01-21 10:12] LABS: INR 1.29; PROTHROMBIN TIME 16.8 seconds (11.9-14.5)
[2021-01-21] MEDS: ATENOLOL 50 MG TAB PO SCH (11:45)
[2021-01-21] MEDS: METHYLPREDNISOLONE SOD SUCC 40 MG/ML VIAL 1ML IV SCH ×2 (11:45→21:18)
[2021-01-21] MEDS: CEFTRIAXONE 1 GM in SODIUM CHLORIDE 0.9% 50ML 50 ML IV SCH (11:45)
[2021-01-21] MEDS ORDERED: SODIUM CHLORIDE 0.9% 250ML 250 ML ONE (11:58)
[2021-01-21] MEDS: AZITHROMYCIN 500MG/NS 250 ML 250 ML IV SCH (12:15)
[2021-01-21] MEDS: ALBUTEROL/IPRATROPIUM 3 ML NEB NEB SCH ×2 (13:00→19:10)
[2021-01-21] MEDS: ENOXAPARIN SODIUM INJ 100 MG/ML SYR SC SCH (13:54)
[2021-01-21] MEDS: SIMVASTATIN 20 MG TAB PO SCH (21:18)
[2021-01-21] MEDS: TEMAZEPAM 15 MG CAP PO PRN (21:23)
[2021-01-22] VITALS (7 sets, daily range): BP systolic 126–149; BP diastolic 52–72
[2021-01-22] MEDS: ALBUTEROL/IPRATROPIUM 3 ML NEB NEB SCH ×4 (01:05→19:10)
[2021-01-22] MEDS: ENOXAPARIN SODIUM INJ 100 MG/ML SYR SC SCH ×2 (02:00→14:31)
[2021-01-22] MEDS: ATENOLOL 50 MG TAB PO SCH (09:07)
[2021-01-22] MEDS: METHYLPREDNISOLONE SOD SUCC 40 MG/ML VIAL 1ML IV SCH ×2 (09:07→21:00)
[2021-01-22] MEDS: CEFTRIAXONE 1 GM in SODIUM CHLORIDE 0.9% 50ML 50 ML IV SCH (09:07)
[2021-01-22] MEDS: AZITHROMYCIN 500MG/NS 250 ML 250 ML IV SCH (12:13)
[2021-01-22] MEDS ORDERED: ACETAMINOPHEN 325 MG TAB PO PRN (12:15)
[2021-01-22 14:13] LABS: ANION GAP 12.8 mmol/L (8-16); BLOOD UREA NITROGEN 11 mg/dL (7-26); BUN/CREATININE RATIO 12 (6-25); CARBON DIOXIDE 23 mmol/L (22-29); CHLORIDE 105 mmol/L (98-107); CREATININE, SERUM 0.93 mg/dL (0.72-1.25); EST GLOMERULAR FILTRATION RATE > 60 ML/MIN (60-); GLUCOSE 249 mg/dL (74-118); POTASSIUM 3.8 mmol/L (3.5-5.1); SODIUM 137 mmol/L (136-145)
[2021-01-22 14:37] LABS: % IRON SATURATION 11 % (15-50); IRON 31 ug/dL (65-175); TOTAL IRON BINDING CAPACITY 274 ug/dL (261-478); TRANSFERRIN 196 mg/dL (174-364)
[2021-01-22] MEDS: PHOSPHORUS 250 MG TAB PO SCH (16:39)
[2021-01-22] MEDS ORDERED: WARFARIN SOD 2 MG TAB PO SCH (17:00)
[2021-01-22] MEDS: BUDESONIDE/FORMOTEROL 160/4.5MCG INHALER INH SCH (19:10)
[2021-01-22] MEDS: SIMVASTATIN 20 MG TAB PO SCH (21:00)
[2021-01-22] MEDS: TEMAZEPAM 15 MG CAP PO PRN (22:42)
[2021-01-23 00:16] VITALS: BP 151/65
[2021-01-23] MEDS: ALBUTEROL/IPRATROPIUM 3 ML NEB NEB SCH ×2 (01:10→07:18)
[2021-01-23] MEDS: ENOXAPARIN SODIUM INJ 100 MG/ML SYR SC SCH (02:00)
[2021-01-23 05:47] VITALS: BP 150/71
[2021-01-23 06:17] LABS: ANION GAP 12.8 mmol/L (8-16); BLOOD UREA NITROGEN 12 mg/dL (7-26); BUN/CREATININE RATIO 13 (6-25); CALCIUM 7.9 mg/dL (8.4-10.2); CARBON DIOXIDE 27 mmol/L (22-29); CHLORIDE 104 mmol/L (98-107); CREATININE, SERUM 0.89 mg/dL (0.72-1.25); EST GLOMERULAR FILTRATION RATE > 60 ML/MIN (60-); GLUCOSE 147 mg/dL (74-118); MAGNESIUM 2.2 MG/DL (1.3-2.1); POTASSIUM 3.8 mmol/L (3.5-5.1); SODIUM 140 mmol/L (136-145)
[2021-01-23 06:37] LABS: INR 1.04; PROTHROMBIN TIME 14.2 seconds (11.9-14.5)
[2021-01-23] MEDS: BUDESONIDE/FORMOTEROL 160/4.5MCG INHALER INH SCH (07:28)
[2021-01-23 08:20] VITALS: BP 158/57
[2021-01-23 08:54] VITALS: BP 158/57
[2021-01-23] MEDS ORDERED: ASPIRIN 81 MG CHEW TAB PO SCH (09:00)
[2021-01-23] MEDS: ATENOLOL 50 MG TAB PO SCH (09:19)
[2021-01-23] MEDS: METHYLPREDNISOLONE SOD SUCC 40 MG/ML VIAL 1ML IV SCH (09:19)
[2021-01-23] MEDS: PHOSPHORUS 250 MG TAB PO SCH (09:19)
[2021-01-23 10:15] VITALS: BP 142/61
[2021-01-24] MEDS ORDERED: METHYLPREDNISOLONE SOD SUCC 40 MG/ML VIAL 1ML IV SCH (09:00)
== END 2021-01-23 10:25 | disposition home or self-care (01) | DRG 309 ==
LOC: ER 15:00 → ERHOLD 16:29 → MED/SURG3 22:03 → OBSVTOIN 01-21 09:04
PROVIDERS: ADMIT Internal Medicine; ATTEND Internal Medicine
DX: I47.2 Ventricular tachycardia (principal); J44.1 Chronic obstructive pulmonary disease with (acute) exacerbation; I50.22 Chronic systolic (congestive) heart failure; I73.9 Peripheral vascular disease, unspecified; E78.5 Hyperlipidemia, unspecified; G47.00 Insomnia, unspecified; F17.210 Nicotine dependence, cigarettes, uncomplicated; Z20.822 Contact with and (suspected) exposure to COVID-19; Z79.01 Long term (current) use of anticoagulants; Z95.2 Presence of prosthetic heart valve; E87.8 Other disorders of electrolyte and fluid balance, not elsewhere classified; M17.12 Unilateral primary osteoarthritis, left knee; Z96.652 Presence of left artificial knee joint; D70.9 Neutropenia, unspecified; I11.0 Hypertensive heart disease with heart failure; R62.7 Adult failure to thrive; Z68.25 Body mass index [BMI] 25.0-25.9, adult; E87.6 Hypokalemia
CPT/HCPCS: 36415; 71045; 71250; 80048; 80053; 82103; 83540; 83735; 83880; 84100; 84466; 84484; 85025; 85610; 93005; 93306; 93880; 94664; 99251; 99284; G0378; J0456; J0696; J1650; J2920; J3475; J3480; J7040; J7050; U0002

== ENCOUNTER 2021-03-07 15:27 | Emergency (ER) | payer OTHER, MEDICARE ==
[~2021-03-07] VITALS: Ht 182.9 cm; Wt 92.1 kg
[2021-03-07 16:36] LABS: BASOPHILS # (AUTO) 0.1 (0.0-0.1); BASOPHILS % 1.6 % (0.0-1.0); EOSINOPHILS # (AUTO) 0.1 (0.0-0.4); EOSINOPHILS % 2.3 % (0.0-6.0); HEMATOCRIT 44.7 % (38.2-49.6); HEMOGLOBIN 15.9 g/dL (14.0-18.0); LYMPHOCYTES % 23.5 % (18.0-39.1); MEAN CORPUSCULAR HGB CONC 35.6 g/dL (31-35); MEAN CORPUSCULAR VOLUME 98.5 fL (81-99); MONOCYTES # (AUTO) 0.4 (0.2-0.8); NEUTROPHILS # (AUTO) 2.7 (2.1-6.9); NEUTROPHILS % 62.1 % (38.7-80.0); PLATELET COUNT 154 x10e3/uL (140-360); RED BLOOD COUNT 4.54 x10e6/uL (4.3-5.7); RED CELL DISTRIBUTION WIDTH 14.7 % (11.7-14.4)
[2021-03-07 16:41] LABS: ALBUMIN 3.2 g/dL (3.5-5.0); ALBUMIN/GLOBULIN RATIO 1.6 (0.8-2.0); ANION GAP 12.9 mmol/L (8-16); CALCIUM 7.7 mg/dL (8.4-10.2); CREATININE, SERUM 1.21 mg/dL (0.72-1.25)
[2021-03-07 16:49] LABS: POTASSIUM 2.9 mmol/L (3.5-5.1)
[2021-03-07 17:37] LABS: BACTERIA,URINE FEW /HPF; CLARITY,URINE CLEAR (CLEAR); COLOR,URINE YELLOW (YELLOW); EPITHELIAL CELLS,URINE RARE /LPF; KETONES,URINE NEGATIVE (NEGATIVE); LEUKOCYTE ESTERASE ,URINE NEGATIVE (NEGATIVE); NITRITE,URINE NEGATIVE (NEGATIVE); PROTEIN,URINE DIPSTICK NEGATIVE (NEGATIVE); RBC,URINE 0-5 /HPF (0-5); URINE UROBILINOGEN 0.2 mg/dL (0.2 - 1); WBC,URINE (MAN) 0-5 /HPF (0-5)
[2021-03-07 17:38] LABS: MUCUS,URINE FEW (RARE)
[2021-03-07] MEDS ORDERED: KETOROLAC TROMETHAMINE 30 MG/ML VIAL IV STA (18:23)
[2021-03-07] MEDS ORDERED: POTASSIUM CHLORIDE 20 MEQ TAB CR PO ONE (18:30)
[2021-03-07] MEDS ORDERED: DIAZEPAM 5 MG TAB PO ONE (18:30)
[2021-03-07] MEDS ORDERED: METHOCARBAMOL750 MG PO (20:00)
[2021-03-07] MEDS ORDERED: NAPROXEN250 MG PO (20:00)
[2021-03-07] MEDS ORDERED: PREDNISONE20 MG PO (20:00)
== END 2021-03-07 20:46 | disposition home or self-care (01) ==
LOC: ER 16:56
DX: M54.5 Low back pain (principal)
CPT/HCPCS: 36415; 74176; 80053; 81001; 85025; 99284; J1885